=== PATIENT | male | born 1940 | race Caucasian/White ===

== ENCOUNTER → 2016-06-03 | Outpatient (CLI) | payer BC ==
[~2016-06-03] MED LIST: ACET-1256 PO; ADVIN25/60 INH; AMLO-114 PO; CLOP1TAB15 PO; NTRGSL/4 UT; OXGN; PRT/40 PO; ROFL1TAB5 PO; SIMV40TA2 PO
[2016-06-03 15:56] LABS: BLOOD UREA NITROGEN 21 mg/dl (7-18); BUN/CREATININE RATIO 13.1 (10-20); CALCIUM 9.4 mg/dl (8.5-10.1); CARBON DIOXIDE 31 mmol/L (21-32); CHLORIDE 104 mmol/L (98-107); GLUCOSE 88 mg/dl (70-99); MAGNESIUM 2.4 mg/dl (1.8-2.4); POTASSIUM 4.7 mmol/L (3.5-5.1); SODIUM 141 mmol/L (136-145)
[2016-06-03 16:35] LABS: URINE APPEARANCE CLEAR (CLEAR); URINE BILIRUBIN NEG (NEG); URINE COLOR YELLOW; URINE EPITHELIAL CELL AUTO 0-5 /lpf (0-5); URINE NITRITE NEG (NEG); URINE PH 7.5 (4.5-7.5); URINE SPECIFIC GRAVITY 1.003 (1.000-1.030); UROBILINOGEN NEG (NEG); ZZUR CULT IF INDIC CLEAN CATCH NO
[2016-06-03 16:45] LABS: MANUAL MICROSCOPIC REQUIRED? NO; REVIEW REQ? NO; URINE PROTIEN/CREAT RATIO 1.9 (0-0.2)
[2016-06-03 16:46] LABS: SULFASALICYLIC ACID POS (NEG)
== END | disposition home or self-care (01) ==
LOC: C.LABSPEC 14:56
PROVIDERS: ATTEND Internal Medicine Nephrology
DX: N18.3 Chronic kidney disease, stage 3 (moderate) (principal); E55.9 Vitamin D deficiency, unspecified

== ENCOUNTER → 2016-09-14 | Outpatient (CLI) | payer BC ==
[~2016-09-14] MED LIST changes: +PANT40TA2 PO; -PRT/40 PO
[2016-09-14 14:17] LABS: HEMATOCRIT 40.2 % (42-52); MEAN CELL VOLUME 93.3 fL (80-100); MEAN CORPUSCULAR HEMOGLOBIN 30.2 pg (25-34); MEAN CORPUSCULAR HGB CONC 32.3 g/dl (32-36); MEAN PLATELET VOLUME 10.1 fL (7.4-10.4); PLATELET COUNT 201 K/uL (130-400); RED BLOOD COUNT 4.31 M/uL (4.7-6.1); WHITE BLOOD COUNT 6.12 K/uL (4.8-10.8)
[2016-09-14 14:22] LABS: BASO % 0.7 %; BASO ABS # 0.04 K/uL (0-0.2); COMPLETE YES; EOS % 2.1 %; IG% 0.7 %; LYMPH % 13.9 %; LYMPH ABS # 0.85 K/uL (1.2-3.4); MONO % 12.4 %; NEUT % 70.2 %
[2016-09-14 14:52] LABS: CALCIUM 9.1 mg/dl (8.5-10.1)
[2016-09-14 14:53] LABS: ALKALINE PHOSPHATASE 70 U/L (45-117); ALT/SGPT 29 U/L (12-78); AST/SGOT 21 U/L (15-37); BLOOD UREA NITROGEN 23 mg/dl (7-18); BUN/CREATININE RATIO 14.5 (10-20); CARBON DIOXIDE 27 mmol/L (21-32); CHLORIDE 109 mmol/L (98-107); CHOLESTEROL 154 mg/dl (0-200); CHOLESTEROL/HDL RATIO 3.3; GLUCOSE 91 mg/dl (70-99); HDL CHOLESTEROL 47 mg/dl; POTASSIUM 4.2 mmol/L (3.5-5.1); SODIUM 144 mmol/L (136-145); TRIGLYCERIDES 130 mg/dl (0-150); VERY LOW DENSITY LIPOPROT CALC 26 mg/dl
== END | disposition home or self-care (01) ==
LOC: C.LABSPEC 12:51
PROVIDERS: ATTEND Internal Medicine
DX: I25.10 Atherosclerotic heart disease of native coronary artery without angina pectoris (principal); I12.9 Hypertensive chronic kidney disease with stage 1 through stage 4 chronic kidney disease, or unspecified chronic kidney disease; N18.9 Chronic kidney disease, unspecified

== ENCOUNTER → 2016-12-07 | Outpatient (CLI) | payer BC ==
[~2016-12-07] MED LIST changes: -PANT40TA2 PO; +PRT/40 PO
[2016-12-07 16:17] LABS: BASO % 0.4 %; BASO ABS # 0.03 K/uL (0-0.2); COMPLETE YES; HEMATOCRIT 38.7 % (42-52); IG% 0.4 %; LYMPH % 14.2 %; MEAN CELL VOLUME 91.3 fL (80-100); MEAN CORPUSCULAR HEMOGLOBIN 29.5 pg (25-34); MEAN CORPUSCULAR HGB CONC 32.3 g/dl (32-36); MEAN PLATELET VOLUME 9.8 fL (7.4-10.4); MONO % 12.5 %; NEUT % 68.5 %; PLATELET COUNT 212 K/uL (130-400); RED BLOOD COUNT 4.24 M/uL (4.7-6.1); WHITE BLOOD COUNT 7.05 K/uL (4.8-10.8)
[2016-12-07 16:21] LABS: URINE APPEARANCE CLEAR (CLEAR); URINE BILIRUBIN NEG (NEG); URINE COLOR YELLOW; URINE NITRITE NEG (NEG); URINE SPECIFIC GRAVITY 1.019 (1.000-1.030); UROBILINOGEN NEG (NEG); ZZUR CULT IF INDIC CLEAN CATCH NO
[2016-12-07 16:22] LABS: MANUAL MICROSCOPIC REQUIRED? NO; REVIEW REQ? NO
[2016-12-07 16:29] LABS: BLOOD UREA NITROGEN 22 mg/dl (7-18); BUN/CREATININE RATIO 14.6 (10-20); CALCIUM 8.9 mg/dl (8.5-10.1); CARBON DIOXIDE 27 mmol/L (21-32); CHLORIDE 108 mmol/L (98-107); GLUCOSE 102 mg/dl (70-99); MAGNESIUM 2.2 mg/dl (1.8-2.4); PHOSPHORUS 2.7 mg/dl (2.5-4.9); SODIUM 139 mmol/L (136-145)
[2016-12-07 16:46] LABS: URINE PROTIEN/CREAT RATIO 1.8 (0-0.2); URINE TOTAL PROTEIN 174.8 mg/dl (0-11.9)
== END | disposition home or self-care (01) ==
LOC: C.LABSPEC 14:50
PROVIDERS: ATTEND Internal Medicine Nephrology
DX: N18.3 Chronic kidney disease, stage 3 (moderate) (principal)

== ENCOUNTER → 2017-01-19 | Outpatient (CLI) | payer BC ==
[2017-01-19 15:02] LABS: BASO % 0.4 %; BASO ABS # 0.03 K/uL (0-0.2); COMPLETE YES; EOS % 2.8 %; HEMATOCRIT 39.9 % (42-52); IG% 0.5 %; LYMPH % 17.5 %; LYMPH ABS # 1.36 K/uL (1.2-3.4); MEAN CELL VOLUME 89.9 fL (80-100); MEAN CORPUSCULAR HEMOGLOBIN 29.5 pg (25-34); MEAN CORPUSCULAR HGB CONC 32.8 g/dl (32-36); MEAN PLATELET VOLUME 9.3 fL (7.4-10.4); MONO % 14.8 %; PLATELET COUNT 210 K/uL (130-400); RED BLOOD COUNT 4.44 M/uL (4.7-6.1); WHITE BLOOD COUNT 7.77 K/uL (4.8-10.8)
[2017-01-19 15:21] LABS: ALT/SGPT 24 U/L (12-78); AST/SGOT 21 U/L (15-37); BLOOD UREA NITROGEN 19 mg/dl (7-18); BUN/CREATININE RATIO 11.1 (10-20); CARBON DIOXIDE 25 mmol/L (21-32); CHLORIDE 105 mmol/L (98-107); CREATININE 1.75 mg/dl (0.60-1.40); GLUCOSE 97 mg/dl (70-99); POTASSIUM 4.4 mmol/L (3.5-5.1); SODIUM 139 mmol/L (136-145)
[2017-01-19 15:25] LABS: ESTIMATED AVERAGE GLUCOSE 108 mg/dl; HA1C FLAG Normal (Normal)
[2017-01-19 15:26] LABS: ALB/GLOB RATIO 0.9 (0.9-2); ALKALINE PHOSPHATASE 87 U/L (45-117); CHOLESTEROL 163 mg/dl (0-200); CHOLESTEROL/HDL RATIO 3.3; HDL CHOLESTEROL 50 mg/dl; TRIGLYCERIDES 194 mg/dl (0-150); VERY LOW DENSITY LIPOPROT CALC 39 mg/dl
== END | disposition home or self-care (01) ==
LOC: C.LABSPEC 14:43
PROVIDERS: ATTEND Internal Medicine
DX: R73.9 Hyperglycemia, unspecified (principal); I25.10 Atherosclerotic heart disease of native coronary artery without angina pectoris; J44.9 Chronic obstructive pulmonary disease, unspecified; C61 Malignant neoplasm of prostate

== ENCOUNTER → 2017-08-09 | Outpatient (CLI) | payer BC ==
[~2017-08-09] MED LIST changes: +PANT40TA2 PO; -PRT/40 PO
[2017-08-09 18:07] LABS: BASO % 0.4 %; BASO ABS # 0.03 K/uL (0-0.2); EOS % 2.4 %; EOS ABS # 0.18 K/uL (0-0.5); HEMATOCRIT 40.2 % (42-52); HEMOGLOBIN 13.3 g/dL (14.0-18.0); IG# 0.02 K/uL (0.00-0.02); LYMPH % 15.8 %; LYMPH ABS # 1.16 K/uL (1.2-3.4); MEAN CELL VOLUME 93.5 fL (80-100); MEAN CORPUSCULAR HEMOGLOBIN 30.9 pg (25-34); MEAN CORPUSCULAR HGB CONC 33.1 g/dl (32-36); MEAN PLATELET VOLUME 10.1 fL (7.4-10.4); MONO % 15.2 %; MONO ABS # 1.12 K/uL (0.11-0.59); NEUT % 65.9 %; NEUT ABS # 4.84 K/uL (1.4-6.5); PLATELET COUNT 205 K/uL (130-400); RED CELL DISTRIBUTION WIDTH SD 47.6 fL (36.4-46.3); WHITE BLOOD COUNT 7.35 K/uL (4.8-10.8)
[2017-08-09 19:06] LABS: CREATININE RANDOM URINE 27.5 mg/dl
[2017-08-09 19:21] LABS: ALBUMIN 3.8 gm/dl (3.4-5.0); BLOOD UREA NITROGEN 25 mg/dl (7-18); CALCIUM 9.1 mg/dl (8.5-10.1); CARBON DIOXIDE 27 mmol/L (21-32); CREATININE 1.67 mg/dl (0.60-1.40); GLUCOSE 87 mg/dl (70-99); PHOSPHORUS 2.7 mg/dl (2.5-4.9); POTASSIUM 4.3 mmol/L (3.5-5.1); SODIUM 139 mmol/L (136-145)
== END | disposition home or self-care (01) ==
LOC: C.LABSPEC 16:59
PROVIDERS: ATTEND Internal Medicine
DX: N18.3 Chronic kidney disease, stage 3 (moderate) (principal)

== ENCOUNTER 2018-12-31 06:44 | Inpatient (IN) ==
[2018-12-31] MEDS ORDERED: ONDANSETRON INJ 2 MG/ML 2 ML VIAL IV STA (06:53)
[2018-12-31] MEDS ORDERED: HYDROmorphone INJ 0.5 MG/0.5 ML SYR IV STA (06:53)
[2018-12-31] MEDS ORDERED: SODIUM CHLORIDE 0.9% 500 ML IV SCH (07:00)
[2018-12-31 07:15] LABS: Basophils # (auto) 0.01 K/uL (0-0.2); Basophils % (auto) 0.1 %; Hemoglobin 12.8 g/dL (14.0-18.0); Immature Granulocytes # (auto) 0.03 K/uL (0.00-0.02); Immature Granulocytes % (auto) 0.4 %; Lymphocytes # (auto) 0.56 K/uL (1.2-3.4); Mean Corpuscular Hemoglobin 29.8 pg (25-34); Mean Corpuscular Hgb Conc 33.7 g/dL (32-36); Mean Corpuscular Volume 88.6 fL (80-100); Mean Platelet Volume 9.7 fL (7.4-10.4); Neutrophils # (auto) 6.61 K/uL (1.4-6.5); Neutrophils % (auto) 82.5 %; Platelet Count 192 K/uL (130-400); RDW Coefficient of Variation 14.5 % (11.5-14.5); RDW Standard Deviation 47.2 fL (36.4-46.3); Red Blood Count 4.29 M/uL (4.7-6.1); White Blood Count 8.01 K/uL (4.8-10.8)
--- NOTE | 2018-12-31 07:15 | XRay Report ---
XR chest 1V portable CLINICAL HISTORY: Atypical chest pain COMPARISON STUDY: 12-12 FINDINGS: The heart is normal in size. There is severe pulmonary emphysema. There is no focal pulmona ry consolidation. There is minor atelectasis/scarring at the right lung base. There are no significan t pleural effusions.[ IMPRESSION: Severe pulmonary emphysema. No acute findings. Electronically signed by: Bruce Strickland M.D. 12/31/2018 7:13 AM
[2018-12-31 07:38] LABS: Alanine Aminotransferase 21 U/L (12-78); Albumin Level 3.7 gm/dl (3.4-5.0); Aspartate Aminotransferase 22 U/L (15-37); BUN Creatinine Ratio 14.5 (10-20); Blood Urea Nitrogen 27 mg/dl (7-18); Carbon Dioxide 25 mmol/L (21-32); Chloride 103 mmol/L (98-107); Creatinine Clr Calc Pharmacy 33.5 ml/min; Est GFR (African American) 39.5; Est GFR (Non-African American) 34.1; Glucose 114 mg/dl (70-99); Lipase 84 U/L (73-393); Potassium 4.2 mmol/L (3.5-5.1); Sodium 135 mmol/L (136-145)
[2018-12-31 07:44] LABS: Alkaline Phosphatase 88 U/L (45-117); Bilirubin,Total 0.6 mg/dl (0.2-1); Creatine Kinase 88 U/L (39-308); Creatine Kinase MB 2.1 ng/ml (0.5-3.6); Globulin 3.8 gm/dl (2.5-4.0); Total Protein 7.5 gm/dl (6.4-8.2); Troponin I < 0.015 ng/ml (0-0.045)
[2018-12-31] MEDS: IOVERSOL 100ml IV PRN ×3 (08:19→11:44)
--- NOTE | 2018-12-31 08:36 | CT Scan Report ---
CT abd pelvis IV con only CLINICAL HISTORY: Abdominal pain COMPARISON STUDY: None TECHNIQUE: The patient was scanned in a dynamic helical fashion during intravenous administration of 94 cc of Optiray 320. A dose lowering technique was utilized adhering to the principles of ALARA. CT DOSE: 707.96 mGy.cm FINDINGS: Lower chest: There is extensive pulmonary emphysema. There are no pleural effusions. Liver: There is scattered hypodense hepatic lesions which approach water attenuation likely represent cysts. The portal vein is patent. The hepatic veins appear patent. There is no ductal dilatation. Gallbladder: There are suspected adenomyomatosis involving the gallbladder fundus. Spleen: Normal in size and attenuation. Pancreas: Unremarkable. Adrenal glands: Unremarkable. Kidneys: There is bilateral nephrolithiasis. There are bilateral vascular calcifications. There are m ultiple bilateral renal cysts. There is no hydronephrosis. No ureteral calculi are visualized. Bowel: There are no transition zones indicate bowel obstruction. The appendix appears normal. There i s no evidence of acute diverticulitis. There are multiple scattered colonic diverticula. Peritoneum: There is no intraperitoneal free air or abdominal ascites. There is mild infiltration of the retroperitoneal soft tissues with trace fluid. Vasculature: There is a 61 mm infrarenal abdominal aortic aneurysm. There is mild infiltration of the surrounding fat. There is an aortobiiliac bypass graft. Adenopathy: None. Pelvic viscera: There is mild prostamegaly. Prostate seeds are visualized. Skeletal structures: No destructive osseous lesions are seen. IMPRESSION: 1. No evidence of bowel obstruction. No evidence of free air 2. Normal appendix. No evidence of acute diverticulitis. 3. 61 mm infrarenal abdominal aortic aneurysm. There is mild infiltration of the perianeurysmal retro peritoneal fat. This finding increases the risk for impending rupture. 4. Bilateral nephrolithiasis. No ureteral calculi identified 5. Aortobiiliac stent grafts. 6. 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 12/31/2018 8:35 AM
--- NOTE | 2018-12-31 09:06 | History & Physical Report ---
Date of Service December 31, 2018 Assessment & Plan (1) Ruptured abdominal aortic aneurysm (AAA): Repair of AAA recommended. I have discussed the risks options and benefits of the procedure with the patient. The patient understands the risks options and benefits and agrees to the procedure. History of Present Illness Chief Complaint: Symptomatic AAA Primary Care Provider: Jasen Banda MD 78 yo male who presented today with abdominal and lower quadrant pain. Found to have a large AAA with a large amount of standing. He is on home O2 and has renal insufficiency. Allergies Allergy/AdvReac Type Severity Reaction Status Date / Time No Known Allergies Allergy Verified 12/31/18 07:15 Home Medications Home Medications Medication Instructions Recorded Confirmed Type albuterol sulfate HFA 90 1 puffs INHALATION BID PRN gm 12/26/18 12/31/18 History mcg/actuation aerosol inhaler amlodipine 10 mg tablet 10 mg PO DAILY #60 tab 12/26/18 12/31/18 History cholecalciferol (vitamin D3) 3,000 3,000 units PO DAILY #30 tab 12/26/18 12/31/18 Rx unit tablet clopidogrel 75 mg tablet 75 mg PO DAILY #30 tab 12/26/18 12/31/18 History metoprolol tartrate 50 mg tablet 75 mg PO BID tab 12/26/18 12/31/18 History nitroglycerin 0.4 mg sublingual 0.4 mg SL Q5M tab 12/26/18 12/31/18 History tablet pantoprazole 40 mg tablet,delayed 40 mg PO DAILY #90 tab 12/26/18 12/31/18 History release simvastatin 40 mg tablet 40 mg PO DAILY #90 tab 12/26/18 12/31/18 History albuterol sulfate 2.5 mg INHALATION QID PRN 12/31/18 12/31/18 History Past Med/Surg History Social History Preferred Language: [place] marital status: current occupational status: retired Feels Safe at Home: Yes Smoking Status: Former smoker Review of Systems All systems reviewed & are unremarkable except as noted in HPI & below + dyspnea Physical Exam Constitutional: well developed and well nourished; no acute distress Respiratory: normal respiratory effort; no respiratory distress Auscultation: lungs clear to auscultation bilaterally Cardiovascular: Rate/Rhythm: regular rate and regular rhythm Extremities: normal capillary refill Gastrointestinal (Abdomen): Inspection/Auscultation: abdomen normal to inspection Percussion/Palpation: + pulsatile mass; abdomen nontender Neurologic: CN's II-XI intact bilaterally; no focal motor deficits Psychiatric: Orientation: alert and oriented x 3 Results & Data Vital Signs (Past 12 Hours) Vital Signs Temp Pulse Pulse Resp BP BP Pulse Ox 12/31/18 07:20 69 20 169/82 H 100 12/31/18 06:57 100 12/31/18 06:47 36.8 C 81 18 180/86 H 100
--- NOTE | 2018-12-31 09:06 | Anesthesiology Consultation ---
Date of Service December 31, 2018 Assessment & Plan (1) Encounter for pre-operative examination: Chart Review Chart Review: Acceptable Risk for Surgery Consults Requested none ASA [id number] Proposed Anesthesia Anesthesia Type: General Anesthesia Line Insertion: Arterial line Risk / Benefits Reviewed With: PT / POA / Parent / Guardian, Accepts Plan and Informed Consent Obtained History Height/Weight Height: 5 ft 10 in Weight: 71.9 kg Allergies Allergy/AdvReac Type Severity Reaction Status Date / Time No Known Allergies Allergy Verified 12/31/18 07:15 Medications Home Medications Medication Instructions Recorded Confirmed Last Taken albuterol sulfate HFA 90 1 puffs INHALATION BID PRN gm 12/26/18 12/31/18 12/30/18 mcg/actuation aerosol inhaler amlodipine 10 mg tablet 10 mg PO DAILY #60 tab 12/26/18 12/31/18 12/30/18 cholecalciferol (vitamin D3) 3,000 3,000 units PO DAILY #30 tab 12/26/1812/3112/30/18 unit tablet clopidogrel 75 mg tablet 75 mg PO DAILY #30 tab 12/26/18 12/31/18 12/30/18 metoprolol tartrate 50 mg tablet 75 mg PO BID tab 12/26/18 12/31/18 12/30/18 nitroglycerin 0.4 mg sublingual 0.4 mg SL Q5M tab 12/26/18 12/31/18 Unknown tablet pantoprazole 40 mg tablet,delayed 40 mg PO DAILY #90 tab 12/26/18 12/31/18 12/30/18 release simvastatin 40 mg tablet 40 mg PO DAILY #90 tab 12/26/18 12/31/18 12/30/18 albuterol sulfate 2.5 mg INHALATION QID PRN 12/31/18 12/31/18 12/30/18 Active Medications Generic Name Dose Route Start Last Admin Trade Name Freq PRN Reason Stop Dose Admin Ioversol 94 ml 12/31/18 08:19 12/31/18 08:19 Optiray 320 100ml IV 01/04/19 08:18 94 ml ONCE PRN Administration Interaction Checking NPO Date Last Intake of Fluids: 12/31/18 Time Last Intake of Fluids: 01:00 Date Last Intake of Solids: 12/31/18 Time Last Intake of Solids: 01:00 Past Medical History Medical History AAA (abdominal aortic aneurysm) COPD (chronic obstructive pulmonary disease) Myocardial infarct, old PVD (peripheral vascular disease) Exercise / Class Metabolic Activity III < 4 Walking/Shop/Light housework Past Surgical History Surgical History H/O angioplasty (Inactive) S/P coronary artery stent placement S/P insertion of iliac artery stent Past Anesthesia History No Hx of Anesthesia Complications and No Family Hx of Anesthesia Complications History of PONV No Hx of PONV and No Hx of Motion Sickness Social History Smoking Status: Former smoker Physical Exam Vital Signs Last Vital Signs Temp 98.2 F 12/31/18 06:47 Pulse 69 12/31/18 07:20 Resp 20 12/31/18 07:20 BP 169/82 H 12/31/18 07:20 Pulse Ox 100 12/31/18 07:20 ENMT Mouth: + dentures Thyromental Distance: > or= 3.5 Finger Breadths Mallampati Class: II Neck normal visual inspection Respiratory normal respiratory effort Auscultation: lungs clear to auscultation bilaterally Cardiovascular Rate/Rhythm: regular rate and regular rhythm Testing Laboratory Results 12/31/18 06:55 12/31/18 06:55
[2018-12-31] MEDS ORDERED: ONDANSETRON INJ 2 MG/ML 2 ML VIAL ONE (09:37)
[2018-12-31] MEDS ORDERED: LIDOCAINE HCL 2% 2 ML VIAL/AMP(20MG/ML) INFIL ONE (09:37)
[2018-12-31] MEDS ORDERED: PROPOFOL IV EMULSION 10 MG/ML 20 ML VIAL IV ONE (09:37)
[2018-12-31] MEDS ORDERED: fentaNYL citrate 100 MCG/2 ML VIAL ONE ×2 (09:38)
[2018-12-31] MEDS ORDERED: SODIUM CHLORIDE 0.9% 250 ML IV PRN (09:46)
[2018-12-31] MEDS ORDERED: ALBUMIN HUMAN 5% 12.5 GM/250 ML VIAL IV ONE (09:48)
--- NOTE | 2018-12-31 10:11 | Emergency Department Note ---
Entered by Glendy Sharif acting as a scribe for History of Present Illness General Chief complaint: Cardiac Assessment Stated complaint: CARDIAC ASSESSMENT Time Seen by Provider: 12/31/18 06:49 Source: patient Mode of arrival: EMS Limitations: no limitations History of Present Illness Provider complaint: Abdominal pain Onset (ago): day(s) (yesterday around 1500) Location: abdomen (lower) Severity: similar to prior episodes Pain Consistency: + other (worsening) Quality: + other (pain) Relieved By: + none The patient is a 78 year old male with a history of 2 coronary artery stents and 2 iliac stents who presents to the Emergency Room with complaints of worsening lower abdominal pain starting yesterday around 1500. The patient reports that his pain presented when he returned home from the grocery store. He states that he experienced similar abdominal pain about 6 months ago but that it resolved on its own so he never went to the doctor to determine its etiology. He denies a history of diverticulitis and adds that he normally wears O2. Home Medications Home Medications Medication Instructions Recorded Confirmed Type albuterol sulfate HFA 90 1 puffs INHALATION BID PRN gm 12/26/18 12/31/18 H istory mcg/actuation aerosol inhaler amlodipine 10 mg tablet 10 mg PO DAILY #60 tab 12/26/18 12/31/18 History cholecalciferol (vitamin D3) 3,000 3,000 units PO DAILY #30 tab 12/26/18 12/31/18 Rx unit tablet clopidogrel 75 mg tablet 75 mg PO DAILY #30 tab 12/26/18 12/31/18 History metoprolol tartrate 50 mg tablet 75 mg PO BID tab 12/26/18 12/31/18 History nitroglycerin 0.4 mg sublingual 0.4 mg SL Q5M tab 12/26/18 12/31/18 History tablet pantoprazole 40 mg tablet,delayed 40 mg PO DAILY #90 tab 12/26/18 12/31/18 History release simvastatin 40 mg tablet 40 mg PO DAILY #90 tab 12/26/18 12/31/18 History albuterol sulfate 2.5 mg INHALATION QID PRN 12/31/18 12/31/18 History Allergies Allergy/AdvReac Type Severity Reaction Status Date / Time No Known Allergies Allergy Verified 12/31/18 07:15 Past Med/Surg History Medical History AAA (abdominal aortic aneurysm) COPD (chronic obstructive pulmonary disease) Myocardial infarct, old PVD (peripheral vascular disease) Surgical History H/O angioplasty (Inactive) S/P coronary artery stent placement S/P insertion of iliac artery stent Social History Preferred Language: Bulgarian marital status: current occupational status: retired Feels Safe at Home: Yes Smoking Status: Former smoker Review of Systems See HPI for pertinent positives & negatives. and A total of 10 systems reviewed and were otherwise negative Physical Exam Vital Signs Vital Signs - 24 hr 12/31/18 06:47 12/31/18 06:50 12/31/18 06:52 Temperature 36.8 C Temperature Source Oral Sepsis Recent Fever Within 48 Hours No Sepsis New/Unexplained Change in Mental Status No Sepsis Action Taken by Nursing No Action Required Pulse Rate 81 85 84 Pulse Rate [Apical] Pulse Rate from SpO2 Sensor 85 84 Pulse Rhythm Regular Pulse Strength Normal Respiratory Rate 18 16 24 Respiratory Effort / Characteristics Non-Labored Respiratory Depth Normal Respiratory Pattern Regular Blood Pressure 180/86 H 180/86 H Blood Pressure [Right Arm] Blood Pressure Mean 117 117 Blood Pressure Mean [Right Arm] Blood Pressure Position Lying Pulse Oximetry 100 100 100 Oxygen Delivery Method Nasal Cannula Oxygen Flow Rate 5 12/31/18 06:57 12/31/18 07:00 12/31/18 07:12 Temperature Temperature Source Sepsis Recent Fever Within 48 Hours Sepsis New/Unexplained Change in Mental Status Sepsis Action Taken by Nursing Pulse Rate 70 69 Pulse Rate [Apical] Pulse Rate from SpO2 Sensor 71 69 Pulse Rhythm Pulse Strength Respiratory Rate 24 20 Respiratory Effort / Characteristics Respiratory Depth Respiratory Pattern Blood Pressure 163/80 H 169/82 H Blood Pressure [Right Arm] Blood Pressure Mean 107 111 Blood Pressure Mean [Right Arm] Blood Pressure Position Pulse Oximetry 100 100 100 Oxygen Delivery Method Nasal Cannula Oxygen Flow Rate 5 12/31/18 07:20 12/31/18 07:30 12/31/18 08:00 Temperature Temperature Source Sepsis Recent Fever Within 48 Hours Sepsis New/Unexplained Change in Mental Status Sepsis Action Taken by Nursing Pulse Rate 67 69 Pulse Rate [Apical] 69 Pulse Rate from SpO2 Sensor 68 66 Pulse Rhythm Pulse Strength Respiratory Rate 20 18 21 Respiratory Effort / Characteristics Respiratory Depth Respiratory Pattern Blood Pressure 159/76 H 154/72 H Blood Pressure [Right Arm] 169/82 H Blood Pressure Mean 103 99 Blood Pressure Mean [Right Arm] 111 Blood Pressure Position Pulse Oximetry 100 100 99 Oxygen Delivery Method Room Air Oxygen Flow Rate 12/31/18 08:27 12/31/18 08:30 12/31/18 09:00 Temperature Temperature Source Sepsis Recent Fever Within 48 Hours Sepsis New/Unexplained Change in Mental Status Sepsis Action Taken by Nursing Pulse Rate 71 69 86 Pulse Rate [Apical] Pulse Rate from SpO2 Sensor 72 68 85 Pulse Rhythm Pulse Strength Respiratory Rate 22 17 21 Respiratory Effort / Characteristics Respiratory Depth Respiratory Pattern Blood Pressure 177/88 H 176/88 H Blood Pressure [Right Arm] Blood Pressure Mean 117 117 Blood Pressure Mean [Right Arm] Blood Pressure Position Pulse Oximetry 98 99 99 Oxygen Delivery Method Oxygen Flow Rate 5 GENERAL: Awake, alert, well-appearing, in no acute distress HENT: Normocephalic, atraumatic. Oropharynx unremarkable. EYES: Normal conjunctiva. Sclera non-icteric. NECK: Supple. No nuchal rigidity. FROM. No JVD. RESPIRATORY: Clear to auscultation. CARDIAC: Regular rate, normal rhythm. Extremities warm and well perfused. Pulses equal. ABDOMEN: Soft, non-distended. No rebound or guarding. No masses. Tenderness in right lower quadrant and left lower quadrant. RECTAL: Deferred. MUSCULOSKELETAL: Chest examination reveals no tenderness. The back is symmetrical on inspection without obvious abnormality. There is no CVA tenderness to palpation. No joint edema. LOWER EXTREMITIES: Calves are equal size bilaterally and non-tender. No edema. No discoloration. NEURO: Normal sensorium. No sensory or motor deficits noted. SKIN: No rash or jaundice noted. Course 0650: The patient was evaluated in room B3B, and a complete history and physical examination were performed. 0840: I reviewed the patient's case with Dr. Mckeon - [facility] Dr. Mckeon will take the patient to the OR and evaluate the patient for further management. Consultations Consultation #1: I reviewed the patient's case with Dr. Mckeon - Vascular Surgery, [facility]. Dr. Mckeon will take the patient to the OR and evaluate the patient for further management. Time: 08:40 Administered Medications Ioversol (Optiray 320 100ml) 94 ml IV ONCE PRN PRN Reason: Interaction Checking Stop: 01/04/19 08:18 Last Admin: 12/31/18 08:19 Dose: 94 ml Documented by: [id number] Discontinued Medications Hydromorphone HCl (Dilaudid) 0.5 mg IV NOW STA Stop: 12/31/18 06:54 Last Admin: 12/31/18 07:13 Dose: 0.5 mg Documented by: [id number] Sodium Chloride (Nss) 500 mls @ 999 mls/hr IV .Q31M TUNDE Stop: 12/31/18 07:30 Last Infusion: 12/31/18 08:08 Dose: 0 mls/hr Documented by: [id number] Admin: 12/31/18 07:13 Dose: 999 mls/hr Documented by: [id number] Ondansetron HCl (Zofran) 4 mg IV NOW STA Stop: 12/31/18 06:54 Last Admin: 12/31/18 07:13 Dose: 4 mg Documented by: [id number] Medical Decision Making Differential Diagnosis Differential diagnosis includes: appendicitis, diverticulitis, PUD, biliary pathology, UTI, pancreatitis, obstruction, mesenteric ischemia, aortic pa thology, infections, inflammatory bowel disease, renal colic, as well as others were entertained. Medical Records Attestation: I reviewed the patient's medical records. Home Medications Current Medication List: was personally reviewed by me Laboratory Data Attestation: I reviewed the patient's lab results. Result diagrams: 12/31/18 06:55 12/31/18 06:55 Lab Results 12/31/18 12/31/18 12/31/18 Range/Units 06:55 06:55 08:54 WBC 8.01 (4.8-10.8) K/uL RBC 4.29 L (4.7-6.1) M/uL Hgb 12.8 L (14.0-18.0) g/dL Hct 38.0 L (42-52) % MCV 88.6 (80-100) fL MCH 29.8 (25-34) pg MCHC 33.7 (32-36) g/dL RDW Std Deviation 47.2 H (36.4-46.3) fL RDW Coeff of Tamara 14.5 (11.5-14.5) % Plt Count 192 (130-400) K/uL MPV 9.7 (7.4-10.4) fL Immature Gran % (Auto) 0.4 % Neut % (Auto) 82.5 % Lymph % (Auto) 7.0 % Heard % (Auto) 10.0 % Eos % (Auto) 0.0 % Baso % (Auto) 0.1 % Immature Gran # (Auto) 0.03 H (0.00-0.02) K/uL Neut # (Auto) 6.61 H (1.4-6.5) K/uL Lymph # (Auto) 0.56 L (1.2-3.4) K/uL Heard # (Auto) 0.80 H (0.11-0.59) K/uL Eos # (Auto) 0.00 (0-0.5) K/uL Baso # (Auto) 0.01 (0-0.2) K/uL Sodium 135 L (136-145) mmol/L Potassium 4.2 (3.5-5.1) mmol/L Chloride 103 (98-107) mmol/L Carbon Dioxide 25 (21-32) mmol/L Anion Gap 7.0 (3-11) BUN 27 H (7-18) mg/dl Creatinine 1.85 H (0.6-1.4) mg/dl Est Cr Clr Drug Dosing 33.5 ml/min Est GFR ( Amer) 39.5 Est GFR (Non-Af Amer) 34.1 BUN/Creatinine Ratio 14.5 (10-20) Glucose 114 H (70-99) mg/dl Calcium 9.0 (8.5-10.1) mg/dl Total Bilirubin 0.6 (0.2-1) mg/dl AST 22 (15-37) U/L ALT 21 (12-78) U/L Alkaline Phosphatase 88 (45-117) U/L Total Creatine Kinase 88 (39-308) U/L CK-MB (CK-2) 2.1 (0.5-3.6) ng/ml CK/CKMB % Calc 2.4 (0-3.0) Troponin I < 0.015 (0-0.045) ng/ml Total Protein 7.5 (6.4-8.2) gm/dl Albumin 3.7 (3.4-5.0) gm/dl Globulin 3.8 (2.5-4.0) gm/dl Albumin/Globulin Ratio 1.0 (0.9-2) Lipase 84 (73-393) U/L Blood Type O Negative Blood Type Recheck Antibody Screen NEGATIVE Crossmatch See Detail 12/31/18 Range/Units 09:50 WBC (4.8-10.8) K/uL RBC (4.7-6.1) M/uL Hgb (14.0-18.0) g/dL Hct (42-52) % MCV (80-100) fL MCH (25-34) pg MCHC (32-36) g/dL RDW Std Deviation (36.4-46.3) fL RDW Coeff of Tamara (11.5-14.5) % Plt Count (130-400) K/uL MPV (7.4-10.4) fL Immature Gran % (Auto) % Neut % (Auto) % Lymph % (Auto) % Heard % (Auto) % Eos % (Auto) % Baso % (Auto) % Immature Gran # (Auto) (0.00-0.02) K/uL Neut # (Auto) (1.4-6.5) K/uL Lymph # (Auto) (1.2-3.4) K/uL Heard # (Auto) (0.11-0.59) K/uL Eos # (Auto) (0-0.5) K/uL Baso # (Auto) (0-0.2) K/uL Sodium (136-145) mmol/L Potassium (3.5-5.1) mmol/L Chloride (98-107) mmol/L Carbon Dioxide (21-32) mmol/L Anion Gap (3-11) BUN (7-18) mg/dl Creatinine (0.6-1.4) mg/dl Est Cr Clr Drug Dosing ml/min Est GFR ( Amer) Est GFR (Non-Af Amer) BUN/Creatinine Ratio (10-20) Glucose (70-99) mg/dl Calcium (8.5-10.1) mg/dl Total Bilirubin (0.2-1) mg/dl AST (15-37) U/L ALT (12-78) U/L Alkaline Phosphatase (45-117) U/L Total Creatine Kinase (39-308) U/L CK-MB (CK-2) (0.5-3.6) ng/ml CK/CKMB % Calc (0-3.0) Troponin I (0-0.045) ng/ml Total Protein (6.4-8.2) gm/dl Albumin (3.4-5.0) gm/dl Globulin (2.5-4.0) gm/dl Albumin/Globulin Ratio (0.9-2) Lipase (73-393) U/L Blood Type Blood Type Recheck O Negative Antibody Screen Crossmatch Imaging Data Radiologist's Impression: Radiology results as stated below per my review and the radiologist's interpretation: XR chest 1V portable CLINICAL HISTORY: Atypical chest pain COMPARISON STUDY: 12-12 FINDINGS: The heart is normal in size. There is severe pulmonary emphysema. There is no focal pulmonary consolidation. There is minor atelectasis/scarring at the right lung base. There are no significant pleural effusions.[ IMPRESSION: Severe pulmonary emphysema. No acute findings. Electronically signed by: Bruce Strickland M.D. 12/31/2018 7:[address] abd pelvis IV con only CLINICAL HISTORY: Abdominal pain COMPARISON STUDY: None TECHNIQUE: The patient was scanned in a dynamic helical fashion during intravenous administration of 94 cc of Optiray 320. A dose lowering technique was utilized adhering to the principles of ALARA. CT DOSE: 707.96 mGy.cm FINDINGS: Lower chest: There is extensive pulmonary emphysema. There are no pleural effusions. Liver: There is scattered hypodense hepatic lesions which approach water attenuation likely represent cysts. The portal vein is patent. The hepatic veins appear patent. There is no ductal dilatation. Gallbladder: There are suspected adenomyomatosis involving the gallbladder fundus. Spleen: Normal in size and attenuation. Pancreas: Unremarkable. Adrenal glands: Unremarkable. Kidneys: There is bilateral nephrolithiasis. There are bilateral vascular calcifications. There are multiple bilateral renal cysts. There is no hydronephrosis. No ureteral calculi are visualized. Bowel: There are no transition zones indicate bowel obstruction. The appendix appears normal. There is no evidence of acute diverticulitis. There are multiple scattered colonic diverticula. Peritoneum: There is no intraperitoneal free air or abdominal ascites. There is mild infiltration of the retroperitoneal soft tissues with trace fluid. Vasculature: There is a 61 mm infrarenal abdominal aortic aneurysm. There is mild infiltration of the surrounding fat. There is an aortobiiliac bypass graft. Adenopathy: None. Pelvic viscera: There is mild prostamegaly. Prostate seeds are visualized. Skeletal structures: No destructive osseous lesions are seen. IMPRESSION: 1. No evidence of bowel obstruction. No evidence of free air 2. Normal appendix. No evidence of acute diverticulitis. 3. 61 mm infrarenal abdominal aortic aneurysm. There is mild infiltration of the perianeurysmal retroperitoneal fat. This finding increases the risk for impending rupture. 4. Bilateral nephrolithiasis. No ureteral calculi identified 5. Aortobiiliac stent grafts. 6. 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 12/31/2018 8:35 AM ECG Data Attestation: I personally reviewed and interpreted this ECG as follows: Indication: abdominal pain Rate (beats per minute): 89 Rhythm: normal sinus Findings: + ST depression (diffusely thoughout); no ST elevation Comparison ECG Date: from (11/30/2015) Change: the following changes noted (ST depressions are unchanged) Additional Comments: Posterior EKG findings: Normal sinus rhythm, 73 BPM, diffuse ST depressions, no ST elevation. Blood Pressure Blood Pressure Findings: Elevated blood pressure Blood Pressure Disposition: further management by hospitalist TAMY Molina This is a 78-year-old male who presents emergency department over concerns that he has a abdominal pain that has been ongoing for the past day. On physical examination the patient is tender right lower quadrant as well as left lower quadrant. The patient is hypertensive. Using shared medical decision-making with the patient and his he was sent for CAT scan of the abdomen pelvis. Patient's EKGs are unchanged from previous as he is diffuse ST depressions. He is on oxygen 2 L. He was given Dilaudid for his pain. Patient's CAT scan is concern for a ruptured AAA. I did discuss the case with the vascular surgeon on-call who was kind enough to see the patient and will take the patient immediately to the operating room. Patient and are in agreement with the treatment plan. Impression & Plan Ruptured abdominal aortic aneurysm (AAA), Abdominal pain Critical Care Time Critical Care Time: Yes Total Critical Care Time: 90 I have personally spent 90 minutes of critical care time in the direct management of this patient. This includes bedside care, interpretation of diagnostic studies, and testing, discussion with consultants, patient, and family members, and other required patient management activities. This 90 minutes is in excess of all separately billable procedures. Discharge Plan Visit Data *Final* Discharge Date/Time: 12/31/18 09:13 Chief Complaint: Cardiac Assessment Stated Complaint: CARDIAC ASSESSMENT ED Provider: Will Block Discharge Problem: Ruptured abdominal aortic aneurysm (AAA), Abdominal pain Patient Disposition: Still a Patient Discharge Instructions Interventions: ED Discharge Assessment Last Done: 12/31/18 09:13 Discharge Problem: Abdominal pain Qualifiers: Abdominal location: generalized Qualified Code(s): R10.84 - Generalized abdominal pain The scribe's documentation has been prepared under my direction and personally reviewed by me in its entirety. I confirm that the note above accurately reflects all work, treatment, procedures, and medical decision making performed by me.
[2018-12-31] MEDS ORDERED: GELATIN SPONGE SZ 100 ONE (11:30)
[2018-12-31] MEDS ORDERED: THROMBIN FOR SOLN 20000 UNIT KIT ONE (11:30)
[2018-12-31] MEDS ORDERED: GLYCOPYRROLATE 0.2 MG/ML VIAL ONE (11:47)
[2018-12-31] MEDS ORDERED: ROCURONIUM BROMIDE 10 MG/ML 5 ML VIAL ONE (11:47)
[2018-12-31] MEDS ORDERED: HEPARIN SOD (PORCINE) 1000 UNIT/ML 10 ML VIAL ONE (11:47)
[2018-12-31] MEDS ORDERED: NEOSTIGMINE METHYLSULFATE 5 MG/5 ML SYR ONE (11:47)
[2018-12-31] MEDS ORDERED: ACETAMINOPHEN 325 MG TAB PO PRN (11:58)
[2018-12-31] MEDS ORDERED: ONDANSETRON INJ 2 MG/ML 2 ML VIAL IV PRN (11:58)
--- NOTE | 2018-12-31 11:58 | Post Operative Brief Note ---
Immediate Post Op Note v1 Date of Surgery December 31, 2018 Pre & Post Diagnosis Operation Date: 12/31/18 09:45 Pre-Op Diagnosis: Symptomatic abdominal aortic aneurysm Post-Op Diagnosis: Symptomatic abdominal aortic aneurysm Procedure Operation Date: 12/31/18 09:45 Actual Procedures p Bilateral femoral artery exposure, bilateral transluminal angioplasty of external and common iliac artery, endovascular abdominal aortic aneurysm repair, bilateral distal extensions(Not Applicable) - Milton Mckeon MD Surgeon Milton Mckeon MD Laundry Room Attendant none Estimated Blood Loss 50 Findings Consistent with Post-Op Diagnosis Drains Damico Catheter Anesthesia Type General Complications none Disposition Accompanied Patient To Recovery: No Disposition: Surgical ICU
[2018-12-31] MEDS ORDERED: NITROGLYCERIN SL 0.4 MG/TAB TAB SL PRN (12:15)
--- NOTE | 2018-12-31 12:25 | Anesthesiology Progress Note ---
Date of Service December 31, 2018 Anesthesia Post Procedure Vital Signs Vital Signs: Temp Pulse Pulse Resp BP BP Pulse Ox 12/31/18 12:15 98.2 F 63 13 145/67 H 97 12/31/18 12:10 98.2 F 64 13 155/66 H 98 12/31/18 09:00 86 21 99 12/31/18 08:30 69 17 176/88 H 99 12/31/18 08:27 71 22 177/88 H 98 12/31/18 08:00 69 21 154/72 H 99 12/31/18 07:30 67 18 159/76 H 100 12/31/18 07:20 69 20 169/82 H 100 12/31/18 07:12 69 20 169/82 H 100 12/31/18 07:00 70 24 163/80 H 100 12/31/18 06:57 100 12/31/18 06:52 84 24 100 12/31/18 06:50 85 16 180/86 H 100 12/31/18 06:47 98.2 F 81 18 180/86 H 100 Pain Intensity Abdomen: Pain Intensity: 5 Transfer of Care Handoff Completed per policy Notes Mental Status: alert / awake / arousable and participated in evaluation Patient Amnestic to Procedure: Yes Nausea / Vomiting: adequately controlled Pain: adequately controlled Airway Patency, RR, SpO2: stable & adequate BP & HR: stable & adequate Hydration State: stable & adequate Anesthetic Complications: no major complications apparent and Pt Satisfied with anesthetic care Notes: Report given to underwriting analyst, care transferred to ICU team.
[2018-12-31] MEDS ORDERED: SUCCINYLCHOLINE CHLORIDE 20 MG/ML 10 ML VIAL ONE (12:27)
[2018-12-31] MEDS ORDERED: PHENYLEPHRINE HCL 10 MG/ML VIAL ONE (12:27)
[2018-12-31] MEDS ORDERED: ESMOLOL HCL INJ 10 MG/ML 10ML VIAL IV ONE (12:27)
[2018-12-31 12:47] LABS: Basophils # (auto) 0.01 K/uL (0-0.2); Basophils % (auto) 0.1 %; Eosinophils # (auto) 0.02 K/uL (0-0.5); Eosinophils % (auto) 0.3 %; Hematocrit (blood only) 30.5 % (42-52); Hemoglobin 10.2 g/dL (14.0-18.0); Immature Granulocytes # (auto) 0.02 K/uL (0.00-0.02); Immature Granulocytes % (auto) 0.3 %; Lymphocytes # (auto) 0.71 K/uL (1.2-3.4); Lymphocytes % (auto) 10.4 %; Mean Corpuscular Hemoglobin 29.9 pg (25-34); Mean Corpuscular Volume 89.4 fL (80-100); Mean Platelet Volume 9.5 fL (7.4-10.4); Monocytes # (auto) 0.81 K/uL (0.11-0.59); Monocytes % (auto) 11.9 %; Neutrophils # (auto) 5.23 K/uL (1.4-6.5); Platelet Count 144 K/uL (130-400); RDW Coefficient of Variation 14.6 % (11.5-14.5); Red Blood Count 3.41 M/uL (4.7-6.1)
[2018-12-31 12:49] LABS: Mean Corpuscular Hgb Conc 33.4 g/dL (32-36)
[2018-12-31 13:07] LABS: BUN Creatinine Ratio 13.2 (10-20); Calcium 7.6 mg/dl (8.5-10.1); Creatinine Clr Calc Pharmacy 37.5 ml/min; Est GFR (African American) 45.4; Est GFR (Non-African American) 39.2; Potassium 4.3 mmol/L (3.5-5.1)
--- NOTE | 2018-12-31 13:33 | Progress Note ---
Date of Service December 31, 2018 I was contacted by technologist Jalen Subramanian for permission to switch this O negative patient to O positive to conserve O negative units. I approved the switch to O positive. Alexandru Abreu MD
--- NOTE | 2018-12-31 13:36 | Progress Note ---
Date of Service December 31, 2018 Pathology Note I was contacted by technologist Jalen Subramanian to switch this O negative patient to O positive in order to conserve O negative units. I approved the switch to O positive. Alexandru Abreu MD
--- NOTE | 2018-12-31 13:49 | Critical Care Consultation ---
Date of Consultation December 31, 2018 Assessment & Plan (1) Ruptured abdominal aortic aneurysm (AAA): Patient had endoscopic repair of the abdominal aortic aneurysm by Dr. Mckeon. Blood pressure monitoring, watch for any decrease in sensation or weakness of bilateral lower extremities. Pain management, incentive spirometry Monitor H&H. 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 On Advair at home along with nebulizer Needs to have Spiriva inhaler added to the regimen prior to discharge Continue with O2 supplementation to keep O2 saturation between 88 to 92% BiPAP nightly and as needed shortness of breath --Normocytic anemia Hemoglobin 10.2 post OR Monitor H&H Transfuse as needed to keep hemoglobin greater than 7 --CKD Monitor BUN/creatinine Strict in and out Avoid nephrotoxic medication --Secondary hypercoagulable state Start anticoagulation once cleared by surgery Cardiac low-salt diet (2) COPD with emphysema: (3) HTN (hypertension): (4) Peripheral vascular disease: (5) Chronic respiratory failure with hypoxia, on home O2 therapy: History of Present Illness Reason for Consultation: Status post abdominal aortic aneurysm repair Attending Physician: Milton Mckeon MD History of Present Illness 78-year-old male with past medical history of COPD/emphysema, hypertension, peripheral vascular disease and abdominal aortic aneurysm comes to the hospital for endovascular stent placement. Patient had endovascular aortic aneurysm repair by Dr. Mckeon. Patient seen in the ICU after postanesthesia care. Breathing comfortably. Denies any chest pain, no shortness of breath, no headache, no nausea, no vomiting. No abdominal pain. Able to move bilateral lower extremities. Bilateral groin area bandage on. Social history: Greater than [id number] smoking history, social alcohol, denies any illicit drug use. Retired. Allergies: NKDA Allergies Allergy/AdvReac Type Severity Reaction Status Date / Time No Known Allergies Allergy Verified 12/31/18 07:15 Home Medications Home Medications Medication Instructions Recorded Confirmed Type albuterol sulfate HFA 90 1 puffs INHALATION BID PRN gm 12/26/18 12/31/18 History mcg/actuation aerosol inhaler amlodipine 10 mg tablet 10 mg PO DAILY #60 tab 12/26/18 12/31/18 History cholecalciferol (vitamin D3) 3,000 3,000 units PO DAILY #30 tab 09/30/19 10/05/19 Rx unit tablet clopidogrel 75 mg tablet 75 mg PO DAILY #30 tab 12/26/18 12/31/18 History metoprolol tartrate 50 mg tablet 75 mg PO BID tab 12/26/18 12/31/18 History nitroglycerin 0.4 mg sublingual 0.4 mg SL Q5M tab 12/26/18 12/31/18 History tablet pantoprazole 40 mg tablet,delayed 40 mg PO DAILY #90 tab 12/26/18 12/31/18 History release simvastatin 40 mg tablet 40 mg PO DAILY #90 tab 12/26/18 12/31/18 History albuterol sulfate 2.5 mg INHALATION QID PRN 12/31/18 12/31/18 History Patient History Medical History AAA (abdominal aortic aneurysm) COPD (chronic obstructive pulmonary disease) Myocardial infarct, old PVD (peripheral vascular disease) Surgical History H/O angioplasty (Inactive) S/P coronary artery stent placement S/P insertion of iliac artery stent Social History Preferred Language: [place] Citizen marital status: current occupational status: retired Feels Safe at Home: Yes Smoking Status: Former smoker Review of Systems Review of Systems: All systems reviewed & are unremarkable except as noted in HPI & below Physical Exam Physical Exam: Constitutional: No acute distress HEENT: EOMI, PERRLA Respiratory system: Good air entry bilaterally, no wheeze, no rhonchi, no crackles CVS: S1-S2 positive, no murmurs or gallops, distant heart sounds Abdomen: Soft, nontender, nondistended, positive bowel sounds x4, obese Extremities: No edema, no cyanosis, + pulses bilaterally dorsalis pedis, +2 pulses bilaterally radialis Neuro: Awake alert oriented x3 Psych: Normal mood and affect G/U: Positive Damico Patient has peripheral line and arterial line. Lymphatic: no cervical or axillary lymphadenopathy Results & Data Vital Signs (Past 12 Hours) Vital Signs Temp Pulse Pulse Pulse Resp BP BP 12/31/18 12:35 36.8 C 62 16 161/54 H 12/31/18 12:30 36.8 C 62 16 169/75 H 12/31/18 12:25 36.8 C 67 20 163/56 H 12/31/18 12:20 36.8 C 70 18 156/56 H 12/31/18 12:15 36.8 C 63 64 13 145/67 H 150/44 H 12/31/18 12:10 36.8 C 64 66 13 155/66 H 12/31/18 09:00 86 21 12/31/18 08:30 69 17 176/88 H 12/31/18 08:27 71 22 177/88 H 12/31/18 08:00 69 21 154/72 H 12/31/18 07:30 67 18 159/76 H 12/31/18 07:20 69 20 12/31/18 07:12 69 20 169/82 H 12/31/18 07:00 70 24 163/80 H 12/31/18 06:57 12/31/18 06:52 84 24 12/31/18 06:50 85 16 180/86 H 12/31/18 06:47 36.8 C 81 18 180/86 H BP Pulse Ox 12/31/18 12:35 153/65 H 97 12/31/18 12:30 159/66 H 97 12/31/18 12:25 158/70 H 98 12/31/18 12:20 149/74 H 97 12/31/18 12:15 145/67 H 98 12/31/18 12:10 155/66 H 99 12/31/18 09:00 99 12/31/18 08:30 99 12/31/18 08:27 98 12/31/18 08:00 99 12/31/18 07:30 100 12/31/18 07:20 169/82 H 100 12/31/18 07:12 100 12/31/18 07:00 100 12/31/18 06:57 100 12/31/18 06:52 100 12/31/18 06:50 100 12/31/18 06:47 100 Laboratory Results 12/31/18 12:30 12/31/18 12:30 Diagnostic Findings Chest x-ray: Portable hyperinflated film. None pulmonary vascular markings likely emphysema appreciate upper lobes., Costophrenic artifact on the screen. EKG: Normal sinus rhythm, right axis deviation, T wave flattening in V5 and V6. PG Care Time/CCT Total # of Minutes Spent Total Time Spent with Patient: Total time spent is greater than 50% in coordination of care (as documented) at patient's floor/unit and/or counseling patient: Critical Care Time: Yes Total Critical Care Time: 40
[2018-12-31] MEDS ORDERED: ALBUT/IPRATROP 3MG/0.5MG NEB 3 ML VIAL NEB PRN (14:03)
[2018-12-31] MEDS: CEFAZOLIN 1000MG 1,000 MG/7.5 ML SYR IV SCH ×2 (14:24→20:22)
[2018-12-31] MEDS: D5W AND 1/2NSS 1,000 ML IV SCH ×3 (14:25→20:22)
[2018-12-31] MEDS: OXYCODONE/ACETAMINOPHEN 5mg/325mg TAB PO PRN (14:25)
[2018-12-31] MEDS: MoRPHine SULFATE 4 MG/ML 1 ML CARP\\VIAL IV PRN ×2 (15:19→16:52)
[2018-12-31] MEDS: ALBUT/IPRATROP 3MG/0.5MG NEB 3 ML VIAL NEB SCH ×2 (15:38→19:03)
[2018-12-31 16:37] LABS: Appearance Urine Clear (Clear); Bacteria Urine Automated Negative (Negative); Bilirubin Urine Negative (Negative); Blood Urine 3+ (Negative); Color Urine Red; Glucose Urine UA Negative (Negative); Ketones Urine Negative (Negative); Leukocyte Esterase Urine Trace (Negative); Nitrite Urine Negative (Negative); Protein Urine 3+ (Negative); RBC Urine Automated >30 /hpf (0-4); Specific Gravity Urine > 1.045 (1.000-1.030); Urobilinogen Urine Negative (Negative)
[2018-12-31 17:55] LABS: Hematocrit (blood only) 28.9 % (42-52); Hemoglobin 9.7 g/dL (14.0-18.0)
[2018-12-31] MEDS: METOPROLOL TARTRATE 50 MG TAB PO SCH (20:23)
[2019-01-01 05:13] LABS: Basophils # (auto) 0.01 K/uL (0-0.2); Basophils % (auto) 0.1 %; Eosinophils # (auto) 0.01 K/uL (0-0.5); Eosinophils % (auto) 0.1 %; Hemoglobin 9.8 g/dL (14.0-18.0); Immature Granulocytes # (auto) 0.03 K/uL (0.00-0.02); Immature Granulocytes % (auto) 0.3 %; Lymphocytes # (auto) 0.55 K/uL (1.2-3.4); Mean Corpuscular Hemoglobin 29.6 pg (25-34); Mean Corpuscular Hgb Conc 32.7 g/dL (32-36); Mean Corpuscular Volume 90.6 fL (80-100); Monocytes # (auto) 1.62 K/uL (0.11-0.59); Monocytes % (auto) 14.8 %; Neutrophils # (auto) 8.71 K/uL (1.4-6.5); Neutrophils % (auto) 79.7 %; Platelet Count 144 K/uL (130-400); RDW Coefficient of Variation 14.9 % (11.5-14.5); Red Blood Count 3.31 M/uL (4.7-6.1); White Blood Count 10.93 K/uL (4.8-10.8)
[2019-01-01 05:32] LABS: BUN Creatinine Ratio 12.7 (10-20); Calcium 7.8 mg/dl (8.5-10.1); Creatinine Clr Calc Pharmacy 32.1 ml/min; Est GFR (African American) 37.6; Est GFR (Non-African American) 32.4; Potassium 4.5 mmol/L (3.5-5.1)
[2019-01-01] MEDS: D5W AND 1/2NSS 1,000 ML IV SCH (06:06)
[2019-01-01] MEDS: ALBUT/IPRATROP 3MG/0.5MG NEB 3 ML VIAL NEB SCH ×4 (07:05→19:23)
[2019-01-01] MEDS: OXYCODONE/ACETAMINOPHEN 5mg/325mg TAB PO PRN ×3 (08:51→21:28)
[2019-01-01] MEDS: CHOLECALCIFEROL 1,000 UNITS TAB PO SCH (08:52)
[2019-01-01] MEDS: CLOPIDOGREL BISULFATE 75 MG TAB PO SCH (08:52)
[2019-01-01] MEDS: PANTOprazole 40 MG TAB PO SCH (08:52)
[2019-01-01] MEDS: SIMVASTATIN 40 MG TAB PO SCH (08:52)
[2019-01-01] MEDS: AMLODIPINE BESYLATE 5 MG TAB PO SCH (08:52)
[2019-01-01] MEDS: METOPROLOL TARTRATE 50 MG TAB PO SCH ×2 (08:52→21:05)
--- NOTE | 2019-01-01 09:26 | Surgery Progress Note ---
Date of Service January 01, 2019 Assessment & Plan (1) Ruptured abdominal aortic aneurysm (AAA): Patient is postoperative day 1 of his EVAR repair of his abdominal uric aneurysm. He is doing extremely well. We will transfer him to the floor. We will increase his ambulation. Subjective The patient is awake and alert. He is complaining of minimal groin pain. Is being treated well with oral narcotics. He denies any abdominal or back pain. Physical Exam Physical Exam: Abdominal exam is benign. There is no pain or tenderness. Groin dressings are intact. The groins are soft. He is got good distal flow in both feet with good capillary refill. Urine output 230 cc last shift. His creatinine is 1.95 which is slightly elevated from his baseline 1.8. Constitutional: WD/WN, vitals as above Results & Data Vital Signs (Past 12 Hours) Vital Signs Temp Pulse Pulse Resp BP Pulse Ox 01/01/19 07:05 74 20 91 01/01/19 06:00 66 18 134/65 92 01/01/19 05:00 75 19 148/70 H 91 01/01/19 04:00 85 23 169/67 H 91 01/01/19 03:00 36.9 C 68 16 169/67 H 90 01/01/19 02:00 69 21 144/62 H 91 01/01/19 01:00 64 16 137/62 92 01/01/19 00:00 80 20 152/64 H 91 12/31/18 23:00 62 19 139/60 92 12/31/18 22:00 86 12 141/64 H 92
--- NOTE | 2019-01-01 10:42 | Critical Care Progress Note ---
Date of Service January 01, 2019 Assessment & Plan (1) Ruptured abdominal aortic aneurysm (AAA): Patient had endoscopic repair of the abdominal aortic aneurysm by Dr. Mckeon on 12/31/2018 Blood pressure monitoring, watch for any decrease in sensation or weakness of bilateral lower extremities. Pain management, incentive spirometry Monitor H&H. 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 On Advair at home along with nebulizer Needs to have Spiriva inhaler added to the regimen prior to discharge Continue with O2 supplementation to keep O2 saturation between 88 to 92% BiPAP nightly and as needed shortness of breath --Normocytic anemia Monitor H&H, stable Transfuse as needed to keep hemoglobin greater than 7 --CKD Monitor BUN/creatinine Strict in and out Avoid nephrotoxic medication --Hematuria Could be iatrogenic from Damico placement Is clearing up, monitor --Secondary hypercoagulable state Start anticoagulation once cleared by surgery Cardiac low-salt diet Patient hemodynamically stable to be downgraded to medical floor. DC A-line prior to downgrade. Case discussed with Dr. Mckeon (2) COPD with emphysema: (3) HTN (hypertension): (4) Peripheral vascular disease: (5) Chronic respiratory failure with hypoxia, on home O2 therapy: Subjective Patient seen and examined at bedside. No acute distress, no adverse events overnight. Patient's hematuria which was found yesterday is clearing up. Urine is getting more clear. Denies any chest pain, no headache, no vomiting. Was a bit nauseous in the morning. Denies any shortness of breath, no dizziness. Denies any abdominal pain. Review of Systems Review of Systems: All systems reviewed & are unremarkable except as noted in HPI & below Physical Exam Physical Exam: Constitutional: No acute distress HEENT: EOMI, PERRLA Respiratory system: Good air entry bilaterally, no wheeze, no rhonchi, minimal crackles bilateral lower lobes CVS: S1-S2 positive, no murmurs or gallops, distant heart sounds Abdomen: Soft, nontender, nondistended, positive bowel sounds x4, obese Extremities: No edema, no cyanosis, +1 pulses bilaterally dorsalis pedis, +2 pulses bilaterally radialis Neuro: Awake alert oriented x3 Psych: Normal mood and affect G/U: Positive Damico Patient has peripheral line and arterial line. Lymphatic: no cervical or axillary lymphadenopathy Results & Data Vital Signs (Past 12 Hours) Vital Signs Temp Pulse Pulse Resp BP Pulse Ox 01/01/19 10:01 77 26 H 91 01/01/19 10:00 70 22 154/63 H 92 01/01/19 09:01 78 18 92 01/01/19 09:00 72 22 159/65 H 92 01/01/19 08:01 70 20 94 01/01/19 08:00 36.9 C 71 19 143/69 H 93 01/01/19 07:05 74 20 91 01/01/19 07:01 63 14 93 01/01/19 07:00 63 24 151/65 H 92 01/01/19 06:00 66 18 134/65 92 01/01/19 05:00 75 19 148/70 H 91 01/01/19 04:00 85 23 169/67 H 91 01/01/19 03:00 36.9 C 68 16 169/67 H 90 01/01/19 02:00 69 21 144/62 H 91 01/01/19 01:00 64 16 137/62 92 01/01/19 00:00 80 20 152/64 H 91 12/31/18 23:00 62 19 139/60 92 Laboratory Results 01/01/19 04:30 01/01/19 04:30 PG Care Time/CCT Total # of Minutes Spent Total Time Spent with Patient: Total time spent is greater than 50% in coordination of care (as documented) at patient's floor/unit and/or counseling patient: Critical Care Time: Yes Total Critical Care Time: 30
[2019-01-01] MEDS ORDERED: SODIUM CHLORIDE 0.9% 1000ML 500 ML IV ONE (19:01)
[2019-01-02 05:38] LABS: Basophils # (auto) 0.01 K/uL (0-0.2); Basophils % (auto) 0.1 %; Eosinophils # (auto) 0.13 K/uL (0-0.5); Eosinophils % (auto) 1.3 %; Hemoglobin 9.2 g/dL (14.0-18.0); Immature Granulocytes # (auto) 0.04 K/uL (0.00-0.02); Immature Granulocytes % (auto) 0.4 %; Lymphocytes # (auto) 0.89 K/uL (1.2-3.4); Lymphocytes % (auto) 8.6 %; Mean Corpuscular Hemoglobin 29.6 pg (25-34); Mean Corpuscular Hgb Conc 32.9 g/dL (32-36); Mean Platelet Volume 9.9 fL (7.4-10.4); Monocytes # (auto) 1.57 K/uL (0.11-0.59); Monocytes % (auto) 15.1 %; Neutrophils # (auto) 7.76 K/uL (1.4-6.5); Neutrophils % (auto) 74.5 %; Platelet Count 141 K/uL (130-400); RDW Coefficient of Variation 14.9 % (11.5-14.5); RDW Standard Deviation 48.3 fL (36.4-46.3); Red Blood Count 3.11 M/uL (4.7-6.1)
[2019-01-02 06:04] LABS: Creatinine Clr Calc Pharmacy 27.7 ml/min; Est GFR (African American) 31.5; Est GFR (Non-African American) 27.2; Potassium 4.4 mmol/L (3.5-5.1)
[2019-01-02] MEDS: ALBUT/IPRATROP 3MG/0.5MG NEB 3 ML VIAL NEB SCH ×4 (07:09→19:22)
[2019-01-02] MEDS ORDERED: SODIUM CHLORIDE 0.9% 500 ML IV SCH (07:30)
[2019-01-02] MEDS: OXYCODONE/ACETAMINOPHEN 5mg/325mg TAB PO PRN (07:37)
--- NOTE | 2019-01-02 08:06 | Anesthesiology Progress Note ---
Date of Service January 02, 2019 Anesthesia Post Procedure Vital Signs Vital Signs: Temp Pulse Pulse Resp BP BP BP 01/02/19 07:27 36.8 C 86 22 162/77 H 01/02/19 07:09 88 22 01/01/19 23:05 36.8 C 70 18 143/66 H 01/01/19 21:04 76 136/66 01/01/19 19:24 78 20 01/01/19 15:43 73 18 01/01/19 14:57 36.9 C 62 18 129/65 01/01/19 11:00 36.9 C 72 24 161/73 H 01/01/19 10:44 78 18 01/01/19 10:01 77 26 H 01/01/19 10:00 70 22 154/63 H 01/01/19 09:01 78 18 01/01/19 09:00 72 22 159/65 H Pulse Ox 01/02/19 07:27 92 01/02/19 07:09 92 01/01/19 23:05 91 01/01/19 21:04 01/01/19 19:24 95 01/01/19 15:43 86 L 01/01/19 14:57 93 01/01/19 11:00 95 01/01/19 10:44 86 L 01/01/19 10:01 91 01/01/19 10:00 92 01/01/19 09:01 92 01/01/19 09:00 92 Notes Mental Status: alert / awake / arousable and participated in evaluation Patient Amnestic to Procedure: Yes Nausea / Vomiting: adequately controlled Pain: adequately controlled Airway Patency, RR, SpO2: stable & adequate BP & HR: stable & adequate Hydration State: stable & adequate Anesthetic Complications: no major complications apparent
[2019-01-02] MEDS ORDERED: bisacodyL 10 MG SUPP PR STA (08:14)
--- NOTE | 2019-01-02 08:27 | Surgery Progress Note ---
Date of Service January 02, 2019 Assessment & Plan (1) Ruptured abdominal aortic aneurysm (AAA): Pt now POD #2 from EVAR with BL groin cutdown. Noticeable increase in Cr and decrease in UO, also up 3 Kg. Electrolytes appear acceptable. Consult nephrology, sees Dr Abarca regularly. Also add stool softeners. Incisions looking well. Present on Admission?: Yes Subjective 78 yo m POD #2 after emergent EVAR with BL groin cutdown, seen in f/u today. Pt admits BL groin pain with movement, states is controlled with meds. Admits decreased appetite and UO. Does pass some flatus, but states has not had BM since last week and does admit some abd "fullness." Pt deneis any cehst pain, SOB, nausea, vomiting, leg or foot pain, other complaints. Review of Systems Review of Systems: All systems reviewed & are unremarkable except as noted in HPI & below Physical Exam Constitutional: WD/WN, vitals as above Respiratory: normal respiratory effort (on oxygen) Auscultation: + diminished lung sounds and + crackles (mild bibasilar) Cardiovascular: Rate/Rhythm: regular rate and regular rhythm Vessels: dorsalis pedis pulses present Extremities: normal capillary refill and + edema Gastrointestinal (Abdomen): Inspection/Auscultation: + abdomen distended; + abnormal bowel sounds (distant) Percussion/Palpation: abdomen nontender and no guarding Musculoskeletal: no cyanosis or clubbing, extremities motor strength 5/5 Skin: + incision (BL groins C/D/I with will +tender, mild ecchymosis) Neurologic: moves all extremities; no focal motor deficits Speech / Cognition: normal speech Psychiatric: A+Ox3, euthymic affect Results & Data Vital Signs (Past 12 Hours) Vital Signs Temp Pulse Resp BP Pulse Ox 01/02/19 07:27 36.8 C 86 22 162/77 H 92 01/02/19 07:09 88 22 92 01/01/19 23:05 36.8 C 70 18 143/66 H 91 01/01/19 21:04 76 136/66
[2019-01-02] MEDS: METOPROLOL TARTRATE 50 MG TAB PO SCH ×2 (08:59→19:28)
[2019-01-02] MEDS: CHOLECALCIFEROL 1,000 UNITS TAB PO SCH (08:59)
[2019-01-02] MEDS: CLOPIDOGREL BISULFATE 75 MG TAB PO SCH (08:59)
[2019-01-02] MEDS: AMLODIPINE BESYLATE 5 MG TAB PO SCH (08:59)
[2019-01-02] MEDS: DOCUSATE SODIUM 100 MG CAP PO SCH ×2 (08:59→19:27)
[2019-01-02] MEDS: PANTOprazole 40 MG TAB PO SCH (08:59)
[2019-01-02] MEDS: SIMVASTATIN 40 MG TAB PO SCH (08:59)
[2019-01-02] MEDS ORDERED: HEPARIN SOD (PORCINE) 1000 UNIT/ML 10 ML VIAL IV ONE (11:00)
[2019-01-02] MEDS ORDERED: SODIUM CHLORIDE 0.9% 1000ML 1,000 ML IV PRN (11:00)
--- NOTE | 2019-01-02 13:04 | Nephrology Consultation ---
Date of Consultation January 02, 2019 Assessment & Plan (1) Acute kidney injury: iMma Valladares is a 78-year-old gentlemen with a stage III CKD, peripheral vascular disease admitted to the hospital with impending AAA rupture and had repair on 09/30/2018. Currently recovering from surgery well. Blood pressure has been variable without any significant hypotensive episode. Baseline creatinine has been 1.6-1.8, renal function slightly worsened to creatinine 2.2 this morning. Has been having decreased urine output shortness of breath and abdominal distension Acute kidney injury most likely hemodynamically mediated with variability of blood pressure, surgery as well as IV contrast exposure. Unlikely any acute renovascular insult or thromboembolic phenomenon however, need to monitor renal function closely for rapid worsening specially since urine output has been low. Postrenal etiology with increased intra-abdominal pressure is a possibility of has well. --stat bladder scan and if there is any evidence of urinary retention, suggest putting Damico catheter back monitor urine output closely --avoid nephrotoxic medications, avoid hypotension --recommend getting a KUB for possible ileus/small bowel obstruction --Lasix 40 mg IV x1 if bladder scan shows no urinary retention --renal panel in am --if progressive worsening of renal function may need renal USG or CT for further evaluation will follow Thank you for allowing me to participate in your patient's care. It was a pleas ure to see Clifford. 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 Nephrology consult was requested for acute kidney injury. Electronic medical records including labs are reviewed in detail patient's visit. Family members were at bedside. Clifford presented to ER on 09/30/2018 with acute onset of lower abdominal pain, CT abdomen pelvis with IV contrast showed impending aortic rupture and he was taken to OR immediately and had repair of AAA. Blood pressure has been variable but no hypotensive episode. Currently recovering from the surgery. Has baseline stage III CKD with baseline creatinine around 1.6-1.8, secondary to renovascular disease. On admission creatinine was 1.9 on 09/30/2018 over last 2 days creatinine slightly worsened and creatinine was 2.2 this morning. . Blood pressure has been variable without any hypotensive episode but most of the time blood pressure running slightly elevated. No nephrotoxic medications exposure. He has been noticing decreased urine output and in fact he reports after Damico catheter was removed yesterday he hardly had any urine output. Had 1 small bowel movement this morning. Has been noticing abdominal distension and shortness of breath. Has been having belching and has been passing gas,. Allergies Allergy/AdvReac Type Severity Reaction Status Date / Time No Known Allergies Allergy Verified 12/31/18 07:15 Home Medications Home Medications Medication Instructions Recorded Confirmed Type albuterol sulfate HFA 90 1 puffs INHALATION BID PRN gm 12/26/18 12/31/18 History mcg/actuation aerosol inhaler amlodipine 10 mg tablet 10 mg PO DAILY #60 tab 12/26/18 12/31/18 History cholecalciferol (vitamin D3) 3,000 3,000 units PO DAILY #30 tab 12/26/18 12/31/18 Rx unit tablet clopidogrel 75 mg tablet 75 mg PO DAILY #30 tab 12/26/18 12/31/18 History metoprolol tartrate 50 mg tablet 75 mg PO BID tab 12/26/18 12/31/18 History nitroglycerin 0.4 mg sublingual 0.4 mg SL Q5M tab 12/26/18 12/31/18 History tablet pantoprazole 40 mg tablet,delayed 40 mg PO DAILY #90 tab 12/26/18 12/31/18 History release simvastatin 40 mg tablet 40 mg PO DAILY #90 tab 12/26/18 12/31/18 History albuterol sulfate 2.5 mg INHALATION QID PRN 12/31/18 12/31/18 History Patient History Medical History AAA (abdominal aortic aneurysm) COPD (chronic obstructive pulmonary disease) Myocardial infarct, old PVD (peripheral vascular disease) Surgical History H/O angioplasty (Inactive) S/P coronary artery stent placement S/P insertion of iliac artery stent Social History Preferred Language: [place] Communication Ability: Effective Waste Cotton Cleaner Required: No Beliefs That Will Affect Care: None marital status: Current Living Situation: Spouse current occupational status: retired Other Information That Helps Us Care for You: No Feels Safe at Home: Yes Safety Concerns: Feels Safe At This Time Smoking Status: Former smoker Do You Dip or Chew Tobacco: No ; Smoking End Date: 2013 ; Second Hand Exposure: No ; Tobacco Cessation Education Requested by Patient: No Hx Alcohol Use: No Hx Substance Use: No Review of Systems Review of Systems: All systems reviewed & are unremarkable except as noted in HPI & below Physical Exam Constitutional: WD/WN, vitals as above + ill appearing; no acute distress Respiratory: + respiratory distress and able to speak in complete sentences Auscultation: lungs clear to auscultation bilaterally Cardiovascular: RRR, no murmur, no edema Gastrointestinal (Abdomen): Inspection/Auscultation: + abdomen distended and normal bowel sounds Percussion/Palpation: + abdomen rigid; abdomen nontender and no guarding Results & Data Vital Signs (Past 12 Hours) Vital Signs Temp Pulse Pulse Resp BP Pulse Ox 01/02/19 12:55 91 01/02/19 12:50 93 01/02/19 11:26 119 H 28 H 78 L 01/02/19 07:27 36.8 C 86 22 162/77 H 92 01/02/19 07:09 88 22 92 PG Care Time/CCT Total # of Minutes Spent Total Time Spent with Patient: Total time spent is greater than 50% in coordination of care (as documented) at patient's floor/unit and/or counseling patient:
[2019-01-02] MEDS ORDERED: FUROSEMIDE 40 MG in SYRINGE 0 ML IV ONE (15:00)
--- NOTE | 2019-01-02 15:59 | XRay Report ---
XR chest 1V portable CLINICAL HISTORY: 78 years-old Male presenting with Hypoxia. TECHNIQUE: Portable upright AP view of the chest was obtained. COMPARISON: 12/31/2018. FINDINGS: Atherosclerosis of the aortic arch. Cardiac silhouette mildly enlarged. Radiolucency of the upper lob es with heterogeneous lung parenchyma. Reticular bibasilar opacities. These are unchanged from prior. No large effusion or pneumothorax allowing for the degree of radiolucency of the upper lobes. Osseou s structures normal. Upper abdomen normal. IMPRESSION: 1. Severe emphysema. No focal infiltrate to suggest pneumonia. 2. Bibasilar reticular opacities may relate to less emphysematous lung parenchyma, atelectasis, aspi ration, or developing fibrosis in the setting of smoking related lung injury. These findings are guille lar to prior. Electronically signed by: Wei Lundberg M.D. 01/02/2019 3:58 PM
--- NOTE | 2019-01-02 15:59 | XRay Report ---
KUB HISTORY: Generalized abdominal pain. Rule out obstruction vs. ileus COMPARISON: None. FINDINGS: Mildly dilated gas-filled loops of large and small bowel are seen throughout the abdomen. T here is gas and stool within the distal colon. The rectum is partially obscured by the contrast withi n the bladder from the recent CT examination. Interval placement of an aortobiiliac stent. The stomac h is also mildly distended and gas-filled. No renal calculi. No ureteral calculi. No pneumoperitoneu m or pneumatosis. IMPRESSION: 1. Interval placement of an aortobiiliac stent graft. This is likely in good position. 2. Multiple dilated gas-filled loops of large and small bowel as well as a gas-filled distended stoma ch. This favors an ileus. Electronically signed by: Uriel Tan M.D. 01/02/2019 3:58 PM
--- NOTE | 2019-01-02 16:16 | Hospitalist Consultation ---
Date of Consultation January 02, 2019 Assessment & Plan (1) Ruptured abdominal aortic aneurysm (AAA): - S/p EVAR with BL groin cutdown on 12/31/18, POD#2. - Primary management per Dr. Mckeon and vascular surgery. - KUB showed adequate placement of aortobiliac stent graft. - Resumed Plavix post op; V/Q scan pending - may require therapeutic anticoagulation, discussed with Dr. Mckeon this afternoon. (2) Acute and chronic respiratory failure with hypoxia: - Requires 4L via NC at home in setting of COPD; O2 sat has been decreased, 80-82% on 10L via NC. - Consider pulmonary edema in setting of 3 kg weight gain since admission but CXR was negative - did receive Lasix 40 mg IV x 1 dose per nephro. - Possible PE in post op setting, multiple risk factors -- bilat LE dopplers and V/Q scan pending. - COPD exacerbation is unlikely - no wheezing noted on exam; continue scheduled nebs but will hold IV steroids and abx. - ?Aspiration PNA -- CXR was negative, will monitor. - Respiratory therapy evaluation -- placed on high flow oxygen with improvement. (3) Acute renal failure: - Creatinine increased to 2.23, baseline ~1.6-1.8. - Has also had decreased urine output over last 24 hours; bladder scanned for minimal amount but will insert andrade to monitor accurate I/O's. - U/a, urine sodium and creatinine all pending collection. - Received Lasix 40 mg IV x 1 dose per nephro; will hold further diuretics and monitor volume status closely. - Monitor renal function closely -- labs ordered at 8 pm. - Holding nephrotoxic agents. (4) Oliguria: - As noted above; inserting andrade to document accurate I/Os. (5) CKD (chronic kidney disease) stage 3, GFR 30-59 ml/min: - Renally dose all meds. - ARF as noted above. (6) Ileus: - Has abd bloating and discomfort; KUB showed ileus. - NPO except meds; can have sips of water, will hold continuous fluids in setting of weight gain. - No indication for NG tube at this time. - Continue to monitor for resolution. (7) COPD with emphysema: - Requires 4L via NC at baseline, currently requiring high flow as noted above. - Acute resp issues are not likely related to COPD exacerbation. - Duonebs QID scheduled with Albuterol QID prn. (8) CAD (coronary artery disease): - S/p stent placement at [facility] in 2002. Also had an NSTEMI in 2016, s/p cardiac cath followed by medical management. - Continue Plavix, Simvastatin, Metoprolol as prescribed. - EKG this afternoon showed ST depression in the anterolateral leads; will monitor Trop q8hr x 3 starting this evening. - Does not have acute chest tightness but complains of SOB (see above) (9) HTN (hypertension): - Continue Amlodipine 10 mg daily, Metoprolol 75 mg BID as prescribed. - Currently hypertensive, may need additional agent -- will monitor. (10) HLD (hyperlipidemia): - Continue statin as prescribed. (11) PAD (peripheral artery disease): - S/p bilat iliac artery stents, completed at [facility] [place]. - Continue statin and plavix as prescribed. (12) GERD (gastroesophageal reflux disease): - PPI daily. (13) DVT prophylaxis: - SCDs; holding pharmacologic ppx, may need to start heparin drip pending results of V/Q scan. Dispo: Upgrade to PCU/tele for evaluation of hypoxia and acute renal failure. Will continue to monitor. History of Present Illness Reason for Consultation: Medical Management Attending Physician: Milton Mckeon MD History of Present Illness Mr. Valladares is a 78 year old male with past medical history of COPD, chronic resp failure, HTN, Stage III CKD, PAD, HLD, Prostate cancer, CAD who presented on 12/31/18 with a ruptured AAA. He is status post EVAR with BL groin cutdown on 12/31/18. Pt. was doing well post op but did develop increasing hypoxia this afternoon. He requires 4L via NC at home, both at rest and with exertion. O2 via NC has been increased to 6L during this admission; O2 sat was 80-82% this afternoon on 10L via NC. He also had shortness of breath at rest. Respiratory therapy evaluated him and started high flow oxygen -- he felt improved overall and O2 sat has been stable >90%. Pt. complains of abd bloating -- he is passing gas but has not had a BM. KUB showed an ileus. Denies nausea/vomiting, fever/chills, chest pain, radiation of chest pain down arms or to jaw. Creatinine is increased to 2.2; he has not had adequate urine output over the last 24 hours. Voided around 7 am this morning but had not voided since this episode. Had 50 cc urine output this afternoon, bladder scanned for ~80 cc. He denies dysuria or hematuria -- will send U/a, urine creat and Na. Allergies Allergy/AdvReac Type Severity Reaction Status Date / Time No Known Allergies Allergy Verified 12/31/18 07:15 Home Medications Home Medications Medication Instructions Recorded Confirmed Type albuterol sulfate 2.5 mg INHALATION QID PRN 12/31/18 12/31/18 History Patient History Medical History AAA (abdominal aortic aneurysm) CAD (coronary artery disease) COPD (chronic obstructive pulmonary disease) Emphysema of lung Myocardial infarct, old PVD (peripheral vascular disease) Surgical History H/O angioplasty (Inactive) S/P coronary artery stent placement S/P insertion of iliac artery stent Family History Father Family history non-contributory Social History Preferred Language: Tristanian Communication Ability: Effective Geneticist Required: No Beliefs That Will Affect Care: None marital status: Current Living Situation: Other Current Living Situation Comment: admitted to inpatient hospice current occupational status: retired Other Information That Helps Us Care for You: No Feels Safe at Home: Yes Safety Concerns: Feels Safe At This Time Smoking Status: Former smoker Do You Dip or Chew Tobacco: No ; Smoking End Date: 2013 ; Second Hand Exposure: No ; Tobacco Cessation Education Requested by Patient: No Hx Alcohol Use: No Hx Substance Use: No Review of Systems Review of Systems: All systems reviewed & are unremarkable except as noted in HPI & below Constitutional: + fatigue and + weakness; no fever, no chills and no anorexia Respiratory: + dyspnea and + dyspnea on exertion; no cough and no wheezing Cardiovascular: no chest pain, no palpitations, no lightheadedness, no syncope and no edema Gastrointestinal: + abdominal pain, + bloating and + constipation; no nausea, no vomiting and no diarrhea/loose stools Genitourinary: + difficulty urinating and + decreased urination; no dysuria and no hematuria Musculoskeletal: no back pain and no joint pain Integumentary: no non-healing lesions Allergy / Immunological: no rash Physical Exam Physical Exam: General: Resting comfortably, no acute distress. HEENT: NC/AT; PERRLA with EOMI; Gideon conjunctiva, MMM. No erythema of posterior pharynx Neck: Supple and nontender Cardiac: Tachycardic, regular. Lungs: on high flow oxygen; clear to auscultation throughout Abdomen: Moderately distended; Bowel normoactive X 4; Firm but non tender to palpation. Extremities: Warm. No edema present Neuro: No focal weakness Skin: No rash Results & Data Vital Signs (Past 12 Hours) Vital Signs Temp Pulse Pulse Resp BP BP Pulse Ox 01/02/19 15:55 93 H 22 94 01/02/19 15:25 36.9 C 92 H 24 171/82 H 88 L 01/02/19 15:11 83 19 93 01/02/19 13:32 88 L 01/02/19 12:55 91 01/02/19 12:50 93 01/02/19 11:26 119 H 28 H 78 L 01/02/19 07:27 36.8 C 86 22 162/77 H 92 01/02/19 07:09 88 22 92 Laboratory Results 01/02/19 01/02/19 12/31/18 Range/Units 05:02 05:02 08:54 WBC 10.40 (4.8-10.8) K/uL RBC 3.11 L (4.7-6.1) M/uL Hgb 9.2 L (14.0-18.0) g/dL Hct 28.0 L (42-52) % MCV 90.0 (80-100) fL MCH 29.6 (25-34) pg MCHC 32.9 (32-36) g/dL RDW Std Deviation 48.3 H (36.4-46.3) fL RDW Coeff of Tamara 14.9 H (11.5-14.5) % Plt Count 141 (130-400) K/uL MPV 9.9 (7.4-10.4) fL Immature Gran % (Auto) 0.4 % Neut % (Auto) 74.5 % Lymph % (Auto) 8.6 % [place] % (Auto) 15.1 % Eos % (Auto) 1.3 % Baso % (Auto) 0.1 % Immature Gran # (Auto) 0.04 H (0.00-0.02) K/uL Neut # (Auto) 7.76 H (1.4-6.5) K/uL Lymph # (Auto) 0.89 L (1.2-3.4) K/uL [place] # (Auto) 1.57 H (0.11-0.59) K/uL Eos # (Auto) 0.13 (0-0.5) K/uL Baso # (Auto) 0.01 (0-0.2) K/uL Sodium 135 L (136-145) mmol/L Potassium 4.4 (3.5-5.1) mmol/L Chloride 102 (98-107) mmol/L Carbon Dioxide 27 (21-32) mmol/L Anion Gap 6.0 (3-11) BUN 31 H (7-18) mg/dl Creatinine 2.23 H D (0.6-1.4) mg/dl Est Cr Clr Drug Dosing 27.7 ml/min Est GFR ( Amer) 31.5 Est GFR (Non-Af Amer) 27.2 BUN/Creatinine Ratio 14.0 (10-20) Glucose 96 (70-99) mg/dl Calcium 8.0 L (8.5-10.1) mg/dl Crossmatch See Detail PG Care Time/CCT Total # of Minutes Spent Total Time Spent with Patient: Total time spent is greater than 50% in coordination of care (as documented) at patient's floor/unit and/or counseling patient:
[2019-01-02 16:56] LABS: Appearance Urine Clear (Clear); Bacteria Urine Automated Negative (Negative); Bilirubin Urine Negative (Negative); Blood Urine 2+ (Negative); Color Urine Yellow; Epithelial Cell Urine Auto >30 /lpf (0-5); Glucose Urine UA Negative (Negative); Ketones Urine Negative (Negative); Leukocyte Esterase Urine Trace (Negative); Nitrite Urine Negative (Negative); Protein Urine 2+ (Negative); Specific Gravity Urine 1.023 (1.000-1.030); Urobilinogen Urine Negative (Negative)
[2019-01-02 18:01] LABS: Hematocrit (blood only) 29.2 % (42-52); Hemoglobin 9.6 g/dL (14.0-18.0); Mean Corpuscular Hemoglobin 29.5 pg (25-34); Mean Corpuscular Volume 89.8 fL (80-100); Mean Platelet Volume 9.6 fL (7.4-10.4); Platelet Count 154 K/uL (130-400); RDW Coefficient of Variation 14.9 % (11.5-14.5); RDW Standard Deviation 49.3 fL (36.4-46.3); Red Blood Count 3.25 M/uL (4.7-6.1); White Blood Count 12.29 K/uL (4.8-10.8)
[2019-01-02 18:05] LABS: Mean Corpuscular Hgb Conc 32.9 g/dL (32-36)
[2019-01-02 18:20] LABS: BUN Creatinine Ratio 14.7 (10-20); Calcium 8.3 mg/dl (8.5-10.1); Creatinine Clr Calc Pharmacy 23.1 ml/min; Est GFR (African American) 25.3; Est GFR (Non-African American) 21.8; Potassium 4.8 mmol/L (3.5-5.1)
[2019-01-02] MEDS: HEPARIN SOD (PORCINE) 1000 UNIT/ML 10 ML VIAL IV SCH (18:39)
--- NOTE | 2019-01-02 20:56 | Nuclear Medicine Report ---
NUCLEAR PULMONARY PERFUSION SCAN CLINICAL HISTORY: Hypoxia. COMPARISON STUDY: Chest x-ray dated 01/02/2019. TECHNIQUE: Perfusion scanning of both lungs were obtained following the IV administration of 6.3 mCi of technetium 99m MAA. Ventilatory scanning could not be performed. The perfusion images were acquire d in the anterior, posterior, and oblique projections. FINDINGS: A chest x-ray performed 01/02/2019 shows cardiomegaly and emphysema. Airspace consolidation is present at the left lung base. No large pleural effusion is identified. The perfusion of both lungs is marke dly heterogeneous. There is diminished perfusion of the right lung as compared to the left. IMPRESSION: 1. The ventilatory scan could not be performed. 2. The perfusion scan is markedly heterogeneous, likely due to advanced chronic lung disease. This ex amination is of limited diagnostic utility. 3. There is globally diminished perfusion of the right lung as compared to the left. Central pulmonar y embolus would be impossible to exclude. If there strong clinical concern for pulmonary embolic dise ase a CT angiogram of the chest should be performed. 4. Airspace consolidation is seen at the left lung base on today's chest x-ray. Correlate clinically for evidence of an infectious/inflammatory pneumonitis. Electronically signed by: Steven Zimmerman M.D. 01/02/2019 8:55 PM
--- NOTE | 2019-01-02 20:59 | Ultrasound Report ---
ULTRASOUND BILATERAL LOWER EXTREMITY VENOUS CLINICAL HISTORY: Lower extremity edema. COMPARISON STUDY: No priors. TECHNIQUE: Real-time, grayscale, and color Doppler sonography of the deep veins of the right and left lower extremity was performed from the inguinal crease to the calf. Compression and augmentation wer e utilized. FINDINGS: There is no sonographic evidence of deep venous thrombosis identified in the right or left lower extremity. The common femoral, superficial femoral, and popliteal veins are patent and normally compressible bilaterally. The greater saphenous vein and the profunda femoris vein at the junction w ith the common femoral vein are clear in both legs. The visualized calf veins are patent bilaterally. There is a complex nonvascular fluid collection identified in the left groin measuring 7.1 x 2.1 x 3 .7 cm. IMPRESSION: 1. There is no sonographic evidence of deep venous thrombosis identified in the right or left lower e xtremity. 2. There is a complex fluid collection in the left groin as detailed above, likely representing hemat rishabh. Clinical correlation will be required. Electronically signed by: Steven Zimmerman M.D. 01/02/2019 8:58 PM
--- NOTE | 2019-01-02 21:01 | Ultrasound Report ---
ULTRASOUND KIDNEYS AND BLADDER CLINICAL HISTORY: Acute renal insufficiency. COMPARISON STUDY: Abdominal CT dated 12/31/2018. TECHNIQUE: Real-time, grayscale, and color flow sonography of the kidneys and bladder is performed. I mages are reviewed in the transverse and longitudinal planes. FINDINGS: Kidneys: The kidneys are atrophic and echogenic consistent with medical renal disease. The right kidn ey measures 9.8 cm in length and the left kidney measures 11.5 cm in length. There is no hydronephros is. No shadowing renal calculi are identified. Bilateral renal cysts measure up to 3.0 cm. There is n o sonographic evidence of contour deforming renal mass lesion. No perinephric fluid is identified. Bladder: The bladder is decompressed around a Damico catheter and could not be assessed. IMPRESSION: 1. The kidneys are atrophic and echogenic consistent with medical renal disease. 2. There is no hydronephrosis. 3. The bladder was decompressed around a Damico catheter and could not be assessed. Electronically signed by: Steven Zimmerman M.D. 01/02/2019 9:00 PM
[2019-01-03 03:56] LABS: Hematocrit (blood only) 26.7 % (42-52); Mean Corpuscular Hemoglobin 29.7 pg (25-34); Mean Corpuscular Hgb Conc 33.7 g/dL (32-36); Mean Corpuscular Volume 88.1 fL (80-100); Mean Platelet Volume 9.5 fL (7.4-10.4); Platelet Count 157 K/uL (130-400); RDW Coefficient of Variation 14.8 % (11.5-14.5); RDW Standard Deviation 48.1 fL (36.4-46.3); Red Blood Count 3.03 M/uL (4.7-6.1); White Blood Count 12.21 K/uL (4.8-10.8)
[2019-01-03 04:18] LABS: Alanine Aminotransferase 14 U/L (12-78); Albumin Level 2.4 gm/dl (3.4-5.0); Aspartate Aminotransferase 33 U/L (15-37); BUN Creatinine Ratio 18.2 (10-20); Blood Urea Nitrogen 45 mg/dl (7-18); Calcium 7.9 mg/dl (8.5-10.1); Carbon Dioxide 27 mmol/L (21-32); Chloride 100 mmol/L (98-107); Creatinine Clr Calc Pharmacy 24.9 ml/min; Est GFR (African American) 27.7; Est GFR (Non-African American) 23.9; Glucose 94 mg/dl (70-99); Potassium 4.6 mmol/L (3.5-5.1); Sodium 134 mmol/L (136-145)
[2019-01-03 04:23] LABS: Albumin Globulin Ratio 0.7 (0.9-2); Alkaline Phosphatase 67 U/L (45-117); Bilirubin,Total 0.6 mg/dl (0.2-1); Globulin 3.4 gm/dl (2.5-4.0); Total Protein 5.8 gm/dl (6.4-8.2); Troponin I < 0.015 ng/ml (0-0.045)
[2019-01-03] MEDS: ALBUT/IPRATROP 3MG/0.5MG NEB 3 ML VIAL NEB SCH ×6 (05:30→19:19)
[2019-01-03] MEDS: AMLODIPINE BESYLATE 5 MG TAB PO SCH (07:40)
[2019-01-03] MEDS: DOCUSATE SODIUM 100 MG CAP PO SCH ×2 (07:40→20:17)
[2019-01-03] MEDS: SIMVASTATIN 40 MG TAB PO SCH (07:40)
[2019-01-03] MEDS: METOPROLOL TARTRATE 50 MG TAB PO SCH ×2 (07:41→20:17)
[2019-01-03] MEDS: PANTOprazole 40 MG TAB PO SCH (07:41)
[2019-01-03] MEDS: CLOPIDOGREL BISULFATE 75 MG TAB PO SCH (07:41)
[2019-01-03] MEDS: CHOLECALCIFEROL 1,000 UNITS TAB PO SCH (07:41)
--- NOTE | 2019-01-03 08:33 | CT Scan Report ---
CT chest wo con CLINICAL HISTORY: Atypical chest pain. HYPOXIA. COMPARISON STUDY: Chest x-ray dated 12/31/2018 CT DOSE: 353.28 mGy.cm TECHNIQUE: CT of the thorax was performed from the thoracic inlet to the lung bases. Images are revi ewed in the axial, sagittal, and coronal planes. IV contrast was not administered for this examinatio n. A dose lowering technique was utilized adhering to the principles of ALARA. FINDINGS: Thyroid: Imaged portions of the thyroid gland are normal in appearance. Thoracic aorta: The thoracic aorta is normal in course and caliber, noting standard 3 vessel arch jcarlos pieter. Heart: The heart is normal in size. There is trace pericardial fluid. There are coronary artery calci fications. Lungs and pleural spaces: There are small bilateral pleural effusions. There is severe pulmonary emph ysema. There are dependent airspace opacity statistically atelectatic. There is lower lobe bronchial wall thickening. There is a solid 9 mm left lower lobe pulmonary nodule Mediastinum: There is no evidence of pathologic mediastinal lymphadenopathy. Lucy: There is no evidence of pathologic hilar adenopathy given the limitations of a noncontrast stud y. Axilla: There is no evidence of pathologic axillary lymphadenopathy. Upper abdomen: Increased density gallbladder, may represent vicarious excretion. There is right-side d nephrolithiasis. Upper pole right renal cysts are visualized. There is a stable hepatic hypodensity likely representing a cyst. Skeletal structures: There are no lytic or blastic osseous lesions. IMPRESSION: 1. Severe pulmonary emphysema 2. Small bilateral pleural effusions 3. Dependent airspace opacities likely atelectatic 4. Lower lobe bronchial wall thickening 5. Solid 9 mm left lower lobe pulmonary nodule. A 3 month follow-up CT scan or PET CT scan is recomme nded. Please refer to below summary of Fleischner criteria recommendations for follow-up of incidental CT n odules (John Jones, Guidelines for management of small pulmonary nodules detected on CT scans: A sta tement from the Fleischner Society, Radiology 237: [id number].) SOLID NODULES Solitary nodule size: <6 mm * low risk patients: no follow-up needed * high risk patients: optional CT at 12 months Solitary nodule size: 6-8 mm * low risk patients: follow-up at 6-12 months, then consider further follow-up at 18-24 months * high risk patients: initial follow-up CT at 6-12 months and then at 18-24 months if no change Solitary nodule size: >8 mm * either low or high risk patients - consider follow-up CT at 3 months, and/or CT-PET, and/or biopsy Multiple nodules size: <6 mm * low risk patients: no routine follow-up * high risk patients: optional CT at 12 months Multiple nodules size: 6-8 mm * low risk patients: follow-up at 3-6 months, then consider further follow-up at 18-24 months * high risk patients: follow-up at 3-6 months, then at 18-24 months if no change Multiple nodules size: >8 mm * low risk patients: follow-up at 3-6 months, then consider further follow-up at 18-24 months * high risk patients: follow-up at 3-6 months, then at 18-24 months if no change Note: newly detected indeterminate nodule in persons 35 years of age or older. * low risk patients: minimal or absent history of smoking and/or other known risk factors * high risk patients: history of smoking or of other known risk factors (e.g. first degree relative with lung cancer, or exposure to asbestos, radon, uranium) * if a nodule up to 8 mm is partly solid or is ground glass further follow-up is required after 24 m onths to exclude possible slow growing adenocarcinoma (IRIS) SUBSOLID NODULES Solitary pure ground-glass nodule * nodule size <6 mm - no CT follow-up required * nodule size >=6 mm - follow-up CT at 6-12 months, then every 2 years until 5 years Solitary part-solid nodule * nodule size <6 mm - no CT follow-up required * nodule size >=6 mm - follow-up CT at 3-6 months. If unchanged, and solid component remains <6 mm, then annual follow-up for 5 years Multiple subsolid nodules * nodule size <6 mm - follow-up CT at 3-6 months, consider further follow-up at 2 and 4 years if sta ble * nodule size >=6 mm - follow-up CT at 3-6 months, subsequent management based on the most suspiciou s nodule(s) Electronically signed by: Bruce Strickland M.D. 01/03/2019 8:31 AM
[2019-01-03] MEDS ORDERED: methylPREDNISolone 40 MG in SYRINGE 0 ML IV SCH (09:00)
[2019-01-03] MEDS ORDERED: PIPERACILL/TAZOBAC CONSULT ACTIVE PRN (09:02)
--- NOTE | 2019-01-03 09:21 | Nephrology Progress Note ---
Date of Service January 03, 2019 Assessment & Plan (1) Acute kidney injury: -- Endovascular repair of AAA 09/30/2018 -- Hemodynamic MIRIAM consistent with ATN -- early signs of renal recovery noted this morning including improvement in urine output and stabilization of creatinine -- maintain Damico to gravity -- renal ultrasound reviewed this morning -- continued maintained in net negative fluid balance goal approximately 1 liter over the course of the next 24 hours, furosemide as needed 40 mg IV provided yesterday -- repeat metabolic profile tomorrow a.m. 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 Breathing comfortably. No chest pain. Urine output improved. Damico draining clear yellow urine. Denies abdominal pain. Overall, Mr. Valladares feels well. Review of Systems Review of Systems: All systems reviewed & are unremarkable except as noted in HPI & below Physical Exam Constitutional: well developed; no acute distress Eyes: no scleral abnormality and no corneal abnormality ENMT: Ears: no hearing impairment Mouth: + oral mucosal abnormality Neck: normal visual inspection and trachea midline Respiratory: + labored breathing Auscultation: + diminished lung sounds and + rales Cardiovascular: Rate/Rhythm: regular rate Heart Sounds: normal S1, normal S2 and + murmur Musculoskeletal: Extremities: no cyanosis and no clubbing Skin: normal turgor; no lesions Neurologic: Motor/Sensory: no tremor and no asterixis Psychiatric: Orientation: alert and oriented x 3 Results & Data Vital Signs (Past 12 Hours) Vital Signs Temp Pulse Pulse Pulse Pulse Resp BP 01/03/19 07:36 37.3 C 77 22 01/03/19 07:04 77 20 01/03/19 06:19 77 01/03/19 05:30 93 H 22 01/03/19 03:57 82 21 01/03/19 03:39 37.4 C 85 21 01/03/19 00:51 78 01/02/19 23:43 37.3 C 82 26 H 143/59 H 01/02/19 21:20 96 H 20 BP Pulse Ox 01/03/19 07:36 160/67 H 91 01/03/19 07:04 94 01/03/19 06:19 01/03/19 05:30 91 01/03/19 03:57 95 01/03/19 03:39 160/75 H 92 01/03/19 00:51 01/02/19 23:43 92 01/02/19 21:20 94 Laboratory Results Laboratory Results - last 24 hr 12/31/18 01/02/19 01/02/19 08:54 16:42 16:42 WBC RBC Hgb Hct MCV MCH MCHC RDW Std Deviation RDW Coeff of Tamara Plt Count MPV Sodium Potassium Chloride Carbon Dioxide Anion Gap BUN Creatinine Est Cr Clr Drug Dosing Est GFR ( Amer) Est GFR (Non-Af Amer) BUN/Creatinine Ratio Glucose Calcium Total Bilirubin AST ALT Alkaline Phosphatase Troponin I Total Protein Albumin Globulin Albumin/Globulin Ratio Urine Color Urine Appearance Urine pH Ur Specific [place] Urine Protein Urine Glucose (UA) Urine Ketones Urine Blood Urine Nitrite Urine Bilirubin Urine Urobilinogen Ur Leukocyte Esterase Urine WBC (Auto) Urine RBC (Auto) U Hyaline Cast (Auto) U Epithel Cells (Auto) Urine Bacteria (Auto) Ur Random Creatinine 181.0 Ur Random Sodium 42 Crossmatch See Detail 01/02/19 01/02/19 01/02/19 16:42 17:54 17:54 WBC 12.29 H RBC 3.25 L Hgb 9.6 L Hct 29.2 L MCV 89.8 MCH 29.5 MCHC 32.9 RDW Std Deviation 49.3 H RDW Coeff of Tamara 14.9 H Plt Count 154 MPV 9.6 Sodium 133 L Potassium 4.8 Chloride 100 Carbon Dioxide 25 Anion Gap 8.0 BUN 40 H Creatinine 2.68 H D Est Cr Clr Drug Dosing 23.1 Est GFR ( Amer) 25.3 Est GFR (Non-Af Amer) 21.8 BUN/Creatinine Ratio 14.7 Glucose 104 H Calcium 8.3 L Total Bilirubin AST ALT Alkaline Phosphatase Troponin I Total Protein Albumin Globulin Albumin/Globulin Ratio Urine Color Yellow Urine Appearance Clear Urine pH 5.0 Ur Specific [place] 1.023 Urine Protein 2+ H Urine Glucose (UA) Negative Urine Ketones Negative Urine Blood 2+ H Urine Nitrite Negative Urine Bilirubin Negative Urine Urobilinogen Negative Ur Leukocyte Esterase Trace H Urine WBC (Auto) 1-5 Urine RBC (Auto) 5-10 H U Hyaline Cast (Auto) 10-30 H U Epithel Cells (Auto) >30 H Urine Bacteria (Auto) Negative Ur Random Creatinine Ur Random Sodium Crossmatch 01/02/19 01/03/19 01/03/19 21:14 03:34 03:34 WBC 12.21 H RBC 3.03 L Hgb 9.0 L Hct 26.7 L MCV 88.1 MCH 29.7 MCHC 33.7 RDW Std Deviation 48.1 H RDW Coeff of Tamara 14.8 H Plt Count 157 MPV 9.5 Sodium 134 L Potassium 4.6 Chloride 100 Carbon Dioxide 27 Anion Gap 7.0 BUN 45 H Creatinine 2.48 H Est Cr Clr Drug Dosing 24.9 Est GFR ( Amer) 27.7 Est GFR (Non-Af Amer) 23.9 BUN/Creatinine Ratio 18.2 Glucose 94 Calcium 7.9 L Total Bilirubin 0.6 AST 33 ALT 14 Alkaline Phosphatase 67 Troponin I < 0.015 < 0.015 Total Protein 5.8 L Albumin 2.4 L Globulin 3.4 Albumin/Globulin Ratio 0.7 L Urine Color Urine Appearance Urine pH Ur Specific [place] Urine Protein Urine Glucose (UA) Urine Ketones Urine Blood Urine Nitrite Urine Bilirubin Urine Urobilinogen Ur Leukocyte Esterase Urine WBC (Auto) Urine RBC (Auto) U Hyaline Cast (Auto) U Epithel Cells (Auto) Urine Bacteria (Auto) Ur Random Creatinine Ur Random Sodium Crossmatch PG Care Time/CCT Total # of Minutes Spent Total Time Spent with Patient: Total time spent is greater than 50% in coordination of care (as documented) at patient's floor/unit and/or counseling patient:
[2019-01-03] MEDS ORDERED: PIPERACILLIN/TAZOBACTAM 4.5 GM in DEXTROSE 5% 100 ML IV ONE (09:30)
--- NOTE | 2019-01-03 11:03 | Hospitalist Progress Note ---
Date of Service January 03, 2019 Assessment & Plan (1) Ruptured abdominal aortic aneurysm (AAA): - S/p EVAR with BL groin cutdown on 12/31/18, POD#3. - Primary management per vascular surgery. - KUB showed adequate placement of aortobiliac stent graft. - Resumed Plavix post op; V/Q scan did not rule out PE, was a very limited study - will hold anticoagulation therapy in setting of ?left groin hematoma on venous doppler. (2) Acute and chronic respiratory failure with hypoxia: - On 4L via NC at home in setting of COPD; has been requiring high flow oxygen over last 24 hours. - May be related to PE in post op setting -- V/Q scan was a very limited study, CTA contraindicated due to ARF. Doppler of bilat LE negative. - Treatment for COPD with PO Prednisone; does not require abx - procalcitonin was negative with no evidence of PNA. - Consider pulm edema -- ~3 kg weight gain, chest CT did show small bilat pleural effusions. Received Lasix 40 mg IV on 01/02, will give Lasix 20 mg IV this afternoon. - Consulted pulmonology, appreciate input. Will need to establish care as new patient in the clinic. - Will wean oxygen as tolerated; BiPAP to be applied qhs. - Flutter valve QID and IS q1hr while awake. (3) COPD with emphysema: - Mild acute exacerbation in setting of hypoxia and scattered wheezing noted on exam. - Currently requiring high flow oxygen (see above) - Started Prednisone 60 mg PO daily per pulmonary recs. - Received Zosyn x 1 dose, will d/c further abx as pt. does not have PNA. - Duonebs QID scheduled with Albuterol prn. - Will need to establish care with pulmonary in outpatient clinic; will also benefit from additional agent at home, consider Symbicort. (4) Acute renal failure: - Creatinine peaked at 2.6 on 01/02, now trending down; baseline ~1.6-1.8. Likely related to acute tubular necrosis. - Had minimal urine output, now significantly improved; continue andrade for accurate I/O's. - Renal US was negative for obstruction. - U/a +hyaline casts, negative for infection. - Received Lasix 40 mg IV x 1 on 10/7; Lasix 20 mg IV x 1 dose today with goal net negative fluid balance of ~1L. - Monitor renal function daily. - Holding nephrotoxic agents. - Nephrology following, appreciate input. (5) Oliguria: - Now resolved; continue andrade for accurate I/Os. (6) CKD (chronic kidney disease) stage 3, GFR 30-59 ml/min: - Renally dose all meds. - ARF as noted above. (7) Ileus: - Ongoing abd bloating and discomfort; KUB showed ileus on 01/02. - NPO except meds; sips of water only. - No indication for NG tube. - Colace 100 mg BID with Miralax daily scheduled; can advance diet this evening if bowel function is improving. (8) Groin hematoma: - Complex fluid collection in left groin noted on doppler of LE -- likely related to hematoma. - Will hold Heparin ppx; continue Plavix and monitor for signs of increased bleeding. (9) CAD (coronary artery disease): - S/p stent placement at [facility] in 2002. Also had an NSTEMI in 2016, s/p cardiac cath followed by medical management. - Continue Plavix, Simvastatin, Metoprolol as prescribed. - EKG showed ST depression in the anterolateral leads; Trop level x 2 were negative. - Does not have acute chest tightness, does c/o SOB (see above) (10) HTN (hypertension): - Continue Amlodipine 10 mg daily, Metoprolol 75 mg BID as prescribed. - Currently hypertensive - will continue to monitor. (11) HLD (hyperlipidemia): - Continue statin as prescribed. (12) PAD (peripheral artery disease): - S/p bilat iliac artery stents, completed [place] [facility] - Continue statin and plavix as prescribed. (13) Pulmonary nodule: - CT showed solid 9 mm LLL nodule; high risk patient in setting of tobacco abuse. - Pulmonology consulted, appreciate input. (14) GERD (gastroesophageal reflux disease): - PPI daily. (15) DVT prophylaxis: - SCDs; holding pharmacologic ppx in setting of groin hematoma. Dispo: Continue treatment for COPD and evaluate for improvement in hypoxia. Nephro also following for acute renal failure. Subjective Pt. is on high flow, did not tolerate BiPAP overnight. O2 sat has remained stable with high flow support, will wean as tolerated. Pt. reports shortness of breath is improving but he is not back at baseline yet. He has not ambulated over last 24 hours to evaluate for SOB with exertion. Has abd bloating -- is passing gas but has not had a BM yet. Renal function slightly improved, will continue to monitor. Primary management per vascular surgery team. Review of Systems Review of Systems: All systems reviewed & are unremarkable except as noted in HPI & below Constitutional: + fatigue and + weakness; no fever, no chills and no anorexia Respiratory: + dyspnea and + wheezing; no cough Cardiovascular: no chest pain, no palpitations, no lightheadedness and no edema Gastrointestinal: + bloating, + nausea and + constipation; no abdominal pain Genitourinary: no dysuria, no difficulty urinating, no decreased urination and no hematuria Musculoskeletal: no back pain and no joint pain Integumentary: no non-healing lesions Physical Exam Physical Exam: General: Resting comfortably HEENT: NC/AT; PERRLA with EOMI; [place] conjunctiva, MMM. No erythema of posterior pharynx Neck: Supple and nontender Cardiac: RRR Lungs: on high flow oxygen; coarse breath sounds, scattered wheezing noted throughout. Abdomen: Moderately distended; Bowel normoactive X 4; Firm, tender to light palpation. Extremities: Warm. No edema present Neuro: No focal weakness Skin: No rash Results & Data Vital Signs (Past 12 Hours) Vital Signs Temp Pulse Pulse Pulse Resp BP BP 01/03/19 07:36 37.3 C 77 22 160/67 H 01/03/19 07:04 77 20 01/03/19 06:19 77 01/03/19 05:30 93 H 22 01/03/19 03:57 82 21 01/03/19 03:39 37.4 C 85 21 160/75 H 01/03/19 00:51 78 01/02/19 23:43 37.3 C 82 26 H 143/59 H Pulse Ox 01/03/19 07:36 91 01/03/19 07:04 94 01/03/19 06:19 01/03/19 05:30 91 01/03/19 03:57 95 01/03/19 03:39 92 01/03/19 00:51 01/02/19 23:43 92 Laboratory Results 01/03/19 01/03/19 01/03/19 Range/Units 09:30 03:34 03:34 WBC 12.21 H (4.8-10.8) K/uL RBC 3.03 L (4.7-6.1) M/uL Hgb 9.0 L (14.0-18.0) g/dL Hct 26.7 L (42-52) % MCV 88.1 (80-100) fL MCH 29.7 (25-34) pg MCHC 33.7 (32-36) g/dL RDW Std Deviation 48.1 H (36.4-46.3) fL RDW Coeff of Tamara 14.8 H (11.5-14.5) % Plt Count 157 (130-400) K/uL MPV 9.5 (7.4-10.4) fL Sodium 134 L (136-145) mmol/L Potassium 4.6 (3.5-5.1) mmol/L Chloride 100 (98-107) mmol/L Carbon Dioxide 27 (21-32) mmol/L Anion Gap 7.0 (3-11) BUN 45 H (7-18) mg/dl Creatinine 2.48 H (0.6-1.4) mg/dl Est Cr Clr Drug Dosing 24.9 ml/min Est GFR ( Amer) 27.7 Est GFR (Non-Af Amer) 23.9 BUN/Creatinine Ratio 18.2 (10-20) Glucose 94 (70-99) mg/dl Calcium 7.9 L (8.5-10.1) mg/dl Total Bilirubin 0.6 (0.2-1) mg/dl AST 33 (15-37) U/L ALT 14 (12-78) U/L Alkaline Phosphatase 67 (45-117) U/L Troponin I < 0.015 (0-0.045) ng/ml Total Protein 5.8 L (6.4-8.2) gm/dl Albumin 2.4 L (3.4-5.0) gm/dl Globulin 3.4 (2.5-4.0) gm/dl Albumin/Globulin Ratio 0.7 L (0.9-2) Procalcitonin 0.41 (0-0.5) ng/ml Urine Color Urine Appearance (Clear) Urine pH (4.5-7.5) Ur Specific [place] (1.000-1.030) Urine Protein (Negative) Urine Glucose (UA) (Negative) Urine Ketones (Negative) Urine Blood (Negative) Urine Nitrite (Negative) Urine Bilirubin (Negative) Urine Urobilinogen (Negative) Ur Leukocyte Esterase (Negative) Urine WBC (Auto) (0-5) /hpf Urine RBC (Auto) (0-4) /hpf U Hyaline Cast (Auto) (0-5) /lpf U Epithel Cells (Auto) (0-5) /lpf Urine Bacteria (Auto) (Negative) Ur Random Creatinine mg/dl Ur Random Sodium mmol/L Crossmatch 01/02/19 01/02/19 01/02/19 Range/Units 21:14 17:54 17:54 WBC 12.29 H (4.8-10.8) K/uL RBC 3.25 L (4.7-6.1) M/uL Hgb 9.6 L (14.0-18.0) g/dL Hct 29.2 L (42-52) % MCV 89.8 (80-100) fL MCH 29.5 (25-34) pg MCHC 32.9 (32-36) g/dL RDW Std Deviation 49.3 H (36.4-46.3) fL RDW Coeff of Tamara 14.9 H (11.5-14.5) % Plt Count 154 (130-400) K/uL MPV 9.6 (7.4-10.4) fL Sodium 133 L (136-145) mmol/L Potassium 4.8 (3.5-5.1) mmol/L Chloride 100 (98-107) mmol/L Carbon Dioxide 25 (21-32) mmol/L Anion Gap 8.0 (3-11) BUN 40 H (7-18) mg/dl Creatinine 2.68 H D (0.6-1.4) mg/dl Est Cr Clr Drug Dosing 23.1 ml/min Est GFR ( Amer) 25.3 Est GFR (Non-Af Amer) 21.8 BUN/Creatinine Ratio 14.7 (10-20) Glucose 104 H (70-99) mg/dl Calcium 8.3 L (8.5-10.1) mg/dl Total Bilirubin (0.2-1) mg/dl AST (15-37) U/L ALT (12-78) U/L Alkaline Phosphatase (45-117) U/L Troponin I < 0.015 (0-0.045) ng/ml Total Protein (6.4-8.2) gm/dl Albumin (3.4-5.0) gm/dl Globulin (2.5-4.0) gm/dl Albumin/Globulin Ratio (0.9-2) Procalcitonin (0-0.5) ng/ml Urine Color Urine Appearance (Clear) Urine pH (4.5-7.5) Ur Specific [place] (1.000-1.030) Urine Protein (Negative) Urine Glucose (UA) (Negative) Urine Ketones (Negative) Urine Blood (Negative) Urine Nitrite (Negative) Urine Bilirubin (Negative) Urine Urobilinogen (Negative) Ur Leukocyte Esterase (Negative) Urine WBC (Auto) (0-5) /hpf Urine RBC (Auto) (0-4) /hpf U Hyaline Cast (Auto) (0-5) /lpf U Epithel Cells (Auto) (0-5) /lpf Urine Bacteria (Auto) (Negative) Ur Random Creatinine mg/dl Ur Random Sodium mmol/L Crossmatch 01/02/19 01/02/19 01/02/19 Range/Units 16:42 16:42 16:42 WBC (4.8-10.8) K/uL RBC (4.7-6.1) M/uL Hgb (14.0-18.0) g/dL Hct (42-52) % MCV (80-100) fL MCH (25-34) pg MCHC (32-36) g/dL RDW Std Deviation (36.4-46.3) fL RDW Coeff of Tamara (11.5-14.5) % Plt Count (130-400) K/uL MPV (7.4-10.4) fL Sodium (136-145) mmol/L Potassium (3.5-5.1) mmol/L Chloride (98-107) mmol/L Carbon Dioxide (21-32) mmol/L Anion Gap (3-11) BUN (7-18) mg/dl Creatinine (0.6-1.4) mg/dl Est Cr Clr Drug Dosing ml/min Est GFR ( Amer) Est GFR (Non-Af Amer) BUN/Creatinine Ratio (10-20) Glucose (70-99) mg/dl Calcium (8.5-10.1) mg/dl Total Bilirubin (0.2-1) mg/dl AST (15-37) U/L ALT (12-78) U/L Alkaline Phosphatase (45-117) U/L Troponin I (0-0.045) ng/ml Total Protein (6.4-8.2) gm/dl Albumin (3.4-5.0) gm/dl Globulin (2.5-4.0) gm/dl Albumin/Globulin Ratio (0.9-2) Procalcitonin (0-0.5) ng/ml Urine Color Yellow Urine Appearance Clear (Clear) Urine pH 5.0 (4.5-7.5) Ur Specific [place] 1.023 (1.000-1.030) Urine Protein 2+ H (Negative) Urine Glucose (UA) Negative (Negative) Urine Ketones Negative (Negative) Urine Blood 2+ H (Negative) Urine Nitrite Negative (Negative) Urine Bilirubin Negative (Negative) Urine Urobilinogen Negative (Negative) Ur Leukocyte Esterase Trace H (Negative) Urine WBC (Auto) 1-5 (0-5) /hpf Urine RBC (Auto) 5-10 H (0-4) /hpf U Hyaline Cast (Auto) 10-30 H (0-5) /lpf U Epithel Cells (Auto) >30 H (0-5) /lpf Urine Bacteria (Auto) Negative (Negative) Ur Random Creatinine 181.0 mg/dl Ur Random Sodium 42 mmol/L Crossmatch 12/31/18 Range/Units 08:54 WBC (4.8-10.8) K/uL RBC (4.7-6.1) M/uL Hgb (14.0-18.0) g/dL Hct (42-52) % MCV (80-100) fL MCH (25-34) pg MCHC (32-36) g/dL RDW Std Deviation (36.4-46.3) fL RDW Coeff of Tamara (11.5-14.5) % Plt Count (130-400) K/uL MPV (7.4-10.4) fL Sodium (136-145) mmol/L Potassium (3.5-5.1) mmol/L Chloride (98-107) mmol/L Carbon Dioxide (21-32) mmol/L Anion Gap (3-11) BUN (7-18) mg/dl Creatinine (0.6-1.4) mg/dl Est Cr Clr Drug Dosing ml/min Est GFR ( Amer) Est GFR (Non-Af Amer) BUN/Creatinine Ratio (10-20) Glucose (70-99) mg/dl Calcium (8.5-10.1) mg/dl Total Bilirubin (0.2-1) mg/dl AST (15-37) U/L ALT (12-78) U/L Alkaline Phosphatase (45-117) U/L Troponin I (0-0.045) ng/ml Total Protein (6.4-8.2) gm/dl Albumin (3.4-5.0) gm/dl Globulin (2.5-4.0) gm/dl Albumin/Globulin Ratio (0.9-2) Procalcitonin (0-0.5) ng/ml Urine Color Urine Appearance (Clear) Urine pH (4.5-7.5) Ur Specific [place] (1.000-1.030) Urine Protein (Negative) Urine Glucose (UA) (Negative) Urine Ketones (Negative) Urine Blood (Negative) Urine Nitrite (Negative) Urine Bilirubin (Negative) Urine Urobilinogen (Negative) Ur Leukocyte Esterase (Negative) Urine WBC (Auto) (0-5) /hpf Urine RBC (Auto) (0-4) /hpf U Hyaline Cast (Auto) (0-5) /lpf U Epithel Cells (Auto) (0-5) /lpf Urine Bacteria (Auto) (Negative) Ur Random Creatinine mg/dl Ur Random Sodium mmol/L Crossmatch See Detail PG Care Time/CCT Total # of Minutes Spent Total Time Spent with Patient: Total time spent is greater than 50% in coordination of care (as documented) at patient's floor/unit and/or counseling patient:
--- NOTE | 2019-01-03 11:11 | Surgery Progress Note ---
Date of Service January 03, 2019 Assessment & Plan (1) Ruptured abdominal aortic aneurysm (AAA): Pt now POD #3 from EVAR with BL groin cutdown. Pt with improved UO and Cr, but still not to baseline and still with positive fluid balanace. Still with increased oxygen requirements and ESPINOZA. Still no BM, add miralax. Incisions looking well. Continue to monitor. Subjective 78 yo m POD #3 after emergent EVAR and BL groin cutdown, seen in f/u today. Pt has increased UO considerably. Pt continues to have increased oxygen requirements and c/o ESPINZOA. Cr with slight improvement as well. Pt still without adequate BM. Physical Exam Constitutional: WD/WN, vitals as above Respiratory: normal respiratory effort (on oxygen) Auscultation: + diminished lung sounds and + crackles (mild bibasilar) Cardiovascular: Rate/Rhythm: regular rate and regular rhythm Vessels: dorsalis pedis pulses present Extremities: normal capillary refill and + edema Gastrointestinal (Abdomen): Inspection/Auscultation: + abdomen distended; + abnormal bowel sounds (distant) Percussion/Palpation: abdomen nontender and no guarding Musculoskeletal: no cyanosis or clubbing, extremities motor strength 5/5 Skin: + incision (BL groins C/D/I with will +tender, mild ecchymosis) Neurologic: moves all extremities; no focal motor deficits Speech / Cognition: normal speech Psychiatric: A+Ox3, euthymic affect Results & Data Vital Signs (Past 12 Hours) Vital Signs Temp Pulse Pulse Pulse Resp BP BP 01/03/19 11:03 79 20 01/03/19 09:49 90 22 01/03/19 07:36 37.3 C 77 22 160/67 H 01/03/19 07:04 77 20 01/03/19 06:19 77 01/03/19 05:30 93 H 22 01/03/19 03:57 82 21 01/03/19 03:39 37.4 C 85 21 160/75 H 01/03/19 00:51 78 01/02/19 23:43 37.3 C 82 26 H 143/59 H Pulse Ox 01/03/19 11:03 89 L 01/03/19 09:49 88 L 01/03/19 07:36 91 01/03/19 07:04 94 01/03/19 06:19 01/03/19 05:30 91 01/03/19 03:57 95 01/03/19 03:39 92 01/03/19 00:51 01/02/19 23:43 92
[2019-01-03 11:40] LABS: iSTAT Allen Test Pass; iSTAT Arterial Blood Gas HCO3 23 meg/L (19-24); iSTAT Arterial Blood Gas pCO2 40 mmHg (35-46); iSTAT Arterial Blood Gas pH 7.38 (7.35-7.45); iSTAT Arterial Blood Gas pO2 59 mmHg (80-95); iSTAT Carbon Dioxide 24 mEq/l (24-31); iSTAT Site L Radial
[2019-01-03] MEDS: POLYETHYLENE (MIRALAX) 17 GM PACK PO SCH (11:41)
[2019-01-03] MEDS ORDERED: LORazepam 0.5 MG TAB PO PRN (12:15)
[2019-01-03] MEDS ORDERED: predniSONE 10 MG TABLET PO SCH (12:30)
[2019-01-03] MEDS ORDERED: FUROSEMIDE 20 MG in SYRINGE 0 ML IV ONE (12:30)
[2019-01-03] MEDS ORDERED: LEVALBUTEROL HCL 1.25 MG/3 ML NEB NEB SCH (13:00)
[2019-01-03] MEDS: predniSONE 20 MG TAB PO SCH (13:23)
--- NOTE | 2019-01-03 13:54 | Pulmonary Consultation ---
Date of Consultation January 03, 2019 Assessment & Plan (1) Hypoxia: There is multifactorial secondary to chronic pulmonary disease with chronic hypoxia. In addition, patient had recent surgery and is currently 3.2 L positive Furosemide is been given for 20 mg IV Patient with increased urine output We will attempt to ambulate the patient and at least get him from bed to chair in an upright position Wean off of high flow O2 to facemask and then the nasal cannula Baseline for the patient is 3-1/2 to 4 L of supplemental O2 via nasal cannula Repeat ABGs in the morning BiPAP 10/2 as tolerated. Will attempt to use during the day so patient can acclimate. Goal is 4 hours at bedtime Continue treat with duo nebs Patient should have outpatient follow-up with pulmonary clinic May also benefit to have pulmonary rehab evaluation again. This was completed in the past by Dr. 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 Mckeon Patient is on clopidogrel for previous stent placement and CAD Ambulate as tolerated Thank you for including us in the care of this patient. We will continue to follow with you Please refer to Dr. Bustamante's addendum for further recommendations. Supervising Physician Co-Signing Physician Notes I have seen and examined the patient with Steven Hi PA-C. I agree with his note aside for any additions/exceptions noted: Patient has Very severe end-stage COPD with acute on chronic hypoxemic respiratory failure. He is seen in the room tripoding on a high flow oxy mask. His CT chest was personally reviewed by me and demonstrates severe centrilobular emphysema diffusely. His pulmonary function tests were also reviewed in allscripts which indicated very severe obstructive defect and significant air trapping that is likely contributing to his dyspnea. He does have a left lower lobe 9 mm pulmonary nodule which will need follow-up with a CT scan as an outpatient in 3 months. He does appear to have some wheezes on exam and is very clearly in a COPD exacerbation. Recommend treating him with 60 mg p.o. prednisone. This can be continued for 5 days. There is no proven efficacy of IV Solu-Medrol over prednisone. I do not think the patient is infected and likely would not benefit from antibiotics at this present time. He does have a net positive fluid balance and can continue to be diuresed carefully. I think acutely he may benefit from BiPAP, however, interestingly his blood gas does not demonstrate a chronic hypercapnia it is unclear whether he would benefit from this in the long-term. I would recommend a blood gas on room air in the morning off of BiPAP as an outpatient. I would be very careful with any sedatives given that this could potentiate a COPD exacerbation. However, I do believe that a palliative care consultation may be prudent in this patient given his very severe, essentially end-stage COPD. History of Present Illness Attending Physician: Milton Mckeon MD History of Present Illness Attending: Dr. Bustamante This is a 78-year-old male that presented for aortic aneurysm repair. He underwent bilateral femoral artery exposure with bilateral transluminal angioplasty of the external iliac artery with endovascular abdominal aortic aneurysm repair with bilateral distal extensions by Dr. Mckeon on 12/31/2018. The patient has required increased oxygen secondary to shortness of breath and hypoxia. The patient does have chronic respiratory failure with pulmonary function testing completed in 2016. FVC was 88% of predicted. Post bronchodilator change was to 75%. FEV1/FVC was 69%. VC 37. TLC 132. RV 265. RV/TLC perc entage 196. Diffusion capacity was not measured. An echocardiogramwas performed on 06/01/2015. LV ejection fraction 55-60%. Inferior andposterolateral hypokinesis. These wall motion abnormalities were present on echocardiogram in 2010.The patient has a history of coronary artery disease. In 2002, he underwent stent procedures at the [facility]. Cardiac catheterization performed on 12/26/2010 at [facility] revealed a proximal LAD stent with mild in-stent restenosis. The greatest stenosis in the LAD at that time was 30%. The left circumflex marginal had a st ent. This was the third marginal. The stent was patent. There was another stent located in the mid segment of the marginal. This stent site was also patent. The midcircumflex in the atrioventricular groove had a 30-40% stenosis. There was a 30-40% distal left circumflex stenosis. The proximal left posterior descending artery had a 30% stenosis. The coronary circulation was left dominant. The conclusion was that the patient had no significant obstructivecoronary artery disease. Of note is that the patient had undergone a stress echo on 12/19/2010. This revealed evidence of worsened wall motion abnormality in the inferolateral wall. A resting echo performed on 11/14/2010 revealed mild LVH, LV ejectionfraction 55%, left ventricular diastolic dysfunction. On that echo,no regional wall motion abnormalities were noted. Patient is noted to be volume overloaded this admission with a 3.2 L positive balance since admission. Furosemide has been given judiciously as patient has a rising creatinine. Patient is beginning to increase output of urine. CT scan is reviewed and reveals severe emphysema and no evidence of consolidation, infiltrate or other evidence of pneumonia. Procalcitonin is 0.4. This slight elevation could be contributed to acute renal failure. Patient has no fever, sweats, chills, rigors. He has no positive sputum production. He does have chronic wheeze which seems to be worsened at this time. Patient does improve with use of nebulizer. Patient denies any chest pain or tightness. Has no shoulder or back pain. No referred pain in the jaw shoulder or arms. Aside from the shortness of breath and some minimal abdominal distention, he has no acute complaints. Allergies Allergy/AdvReac Type Severity Reaction Status Date / Time No Known Allergies Allergy Verified 12/31/18 07:15 Home Medications Home Medications Medication Instructions Recorded Confirmed Type albuterol sulfate HFA 90 1 puffs INHALATION BID PRN gm 12/26/18 12/31/18 History mcg/actuation aerosol inhaler amlodipine 10 mg tablet 10 mg PO DAILY #60 tab 12/26/18 12/31/18 History cholecalciferol (vitamin D3) 3,000 3,000 units PO DAILY #30 tab 12/26/18 12/31/18 Rx unit tablet clopidogrel 75 mg tablet 75 mg PO DAILY #30 tab 12/26/18 12/31/18 History metoprolol tartrate 50 mg tablet 75 mg PO BID tab 12/26/18 12/31/18 History nitroglycerin 0.4 mg sublingual 0.4 mg SL Q5M tab 12/26/18 12/31/18 History tablet pantoprazole 40 mg tablet,delayed 40 mg PO DAILY #90 tab 12/26/18 12/31/18 History release simvastatin 40 mg tablet 40 mg PO DAILY #90 tab 12/26/18 12/31/18 History albuterol sulfate 2.5 mg INHALATION QID PRN 12/31/18 12/31/18 History Patient History Medical History AAA (abdominal aortic aneurysm) CAD (coronary artery disease) COPD (chronic obstructive pulmonary disease) Emphysema of lung Myocardial infarct, old PVD (peripheral vascular disease) Surgical History H/O angioplasty (Inactive) S/P coronary artery stent placement S/P insertion of iliac artery stent Family History Father Family history non-contributory Social History Preferred Language: Singaporean Communication Ability: Effective Chip Bin Conveyor Tender Required: No Beliefs That Will Affect Care: None marital status: Current Living Situation: Spouse current occupational status: retired Other Information That Helps Us Care for You: No Feels Safe at Home: Yes Safety Concerns: Feels Safe At This Time Smoking Status: Former smoker Do You Dip or Chew Tobacco: No ; Smoking End Date: 2013 ; Second Hand Exposure: No ; Tobacco Cessation Education Requested by Patient: No Hx Alcohol Use: No Hx Substance Use: No Review of Systems Review of Systems: All systems reviewed & are unremarkable except as noted in HPI & below Physical Exam Physical Exam: GENERAL : No acute distress EYES: No icterus, gaze conjugate NOSE: No evidence of epistaxis MOUTH: No lesions or candidiasis NECK: Supple LUNGS: End phase expiratory wheezes in the bilateral bases. Decreased air movement throughout remainder of lung zones. No appreciation of rhonchi or crackles. No paradoxical chest wall movement. HEART: Regular, rate controlled ABDOMEN: Soft, NT, distended, BS Present. No rebound tenderness or guarding. Tympanic to percussion EXTREMITIES: Bilateral LE edema, pedal pulses intact NEURO: A&OX3 Results & Data Vital Signs (Past 12 Hours) Vital Signs Temp Pulse Pulse Pulse Resp BP BP 01/03/19 11:36 113 H 34 H 146/60 H 01/03/19 11:03 79 20 01/03/19 09:49 90 22 01/03/19 07:36 37.3 C 77 22 160/67 H 01/03/19 07:04 77 20 01/03/19 06:19 77 01/03/19 05:30 93 H 22 01/03/19 03:57 82 21 01/03/19 03:39 37.4 C 85 21 160/75 H Pulse Ox 01/03/19 11:36 84 L 01/03/19 11:03 89 L 01/03/19 09:49 88 L 01/03/19 07:36 91 01/03/19 07:04 94 01/03/19 06:19 01/03/19 05:30 91 01/03/19 03:57 95 01/03/19 03:39 92 Laboratory Results 01/03/19 03:34 01/03/19 03:34 Laboratory Tests 01/03/19 11:29 POC pH 7.38 POC pCO2 40 POC pO2 59 L POC HCO3 23 POC Total CO2 24 POC Base Excess -2.0 POC ABG O2 Sat 90.0 O2 Delivery Device SimpleMask Diagnostic Findings CT chest wo con CLINICAL HISTORY: Atypical chest pain. HYPOXIA. COMPARISON STUDY: Chest x-ray dated 12/31/2018 CT DOSE: 353.28 mGy.cm TECHNIQUE: CT of the thorax was performed from the thoracic inlet to the lung bases. Images are reviewed in the axial, sagittal, and coronal planes. IV contrast was not administered for this examination. A dose lowering technique was utilized adhering to the principles of ALARA. FINDINGS: Thyroid: Imaged portions of the thyroid gland are normal in appearance. Thoracic aorta: The thoracic aorta is normal in course and caliber, noting standard 3 vessel arch anatomy. Heart: The heart is normal in size. There is trace pericardial fluid. There are coronary artery calcifications. Lungs and pleural spaces: There are small bilateral pleural effusions. There is severe pulmonary emphysema. There are dependent airspace opacity statistically atelectatic. There is lower lobe bronchial wall thickening. There is a solid 9 mm left lower lobe pulmonary nodule Mediastinum: There is no evidence of pathologic mediastinal lymphadenopathy. Lucy: There is no evidence of pathologic hilar adenopathy given the limitations of a noncontrast study. Axilla: There is no evidence of pathologic axillary lymphadenopathy. Upper abdomen: Increased density gallbladder, may represent vicarious excretion. There is right-sided nephrolithiasis. Upper pole right renal cysts are visualized. There is a stable hepatic hypodensity likely representing a cyst. Skeletal structures: There are no lytic or blastic osseous lesions. IMPRESSION: 1. Severe pulmonary emphysema 2. Small bilateral pleural effusions 3. Dependent airspace opacities likely atelectatic 4. Lower lobe bronchial wall thickening 5. Solid 9 mm left lower lobe pulmonary nodule. A 3 month follow-up CT scan or PET CT scan is recommended. Please refer to below summary of Fleischner criteria recommendations for follow- up of incidental CT nodules (John Jones, Guidelines for management of small pulmonary nodules detected on CT scans: A statement from the Fleischner Society, Radiology 237: [phone].) SOLID NODULES Solitary nodule size: <6 mm * low risk patients: no follow-up needed * high risk patients: optional CT at 12 months Solitary nodule size: 6-8 mm * low risk patients: follow-up at 6-12 months, then consider further follow-up at 18-24 months * high risk patients: initial follow-up CT at 6-12 months and then at 18-24 months if no change Solitary nodule size: >8 mm * either low or high risk patients - consider follow-up CT at 3 months, and/or CT-PET, and/or biopsy Multiple nodules size: <6 mm * low risk patients: no routine follow-up * high risk patients: optional CT at 12 months Multiple nodules size: 6-8 mm * low risk patients: follow-up at 3-6 months, then consider further follow-up at 18-24 months * high risk patients: follow-up at 3-6 months, then at 18-24 months if no change Multiple nodules size: >8 mm * low risk patients: follow-up at 3-6 months, then consider further follow-up at 18-24 months * high risk patients: follow-up at 3-6 months, then at 18-24 months if no change Note: newly detected indeterminate nodule in persons 35 years of age or older. * low risk patients: minimal or absent history of smoking and/or other known risk factors * high risk patients: history of smoking or of other known risk factors (e.g. first degree relative with lung cancer, or exposure to asbestos, radon, uranium) * if a nodule up to 8 mm is partly solid or is ground glass further follow-up is required after 24 months to exclude possible slow growing adenocarcinoma (IRIS) SUBSOLID NODULES Solitary pure ground-glass nodule * nodule size <6 mm - no CT follow-up required * nodule size >=6 mm - follow-up CT at 6-12 months, then every 2 years until 5 years Solitary part-solid nodule * nodule size <6 mm - no CT follow-up required * nodule size >=6 mm - follow-up CT at 3-6 months. If unchanged, and solid component remains <6 mm, then annual follow-up for 5 years Multiple subsolid nodules * nodule size <6 mm - follow-up CT at 3-6 months, consider further follow-up at 2 and 4 years if stable * nodule size >=6 mm - follow-up CT at 3-6 months, subsequent management based on the most suspicious nodule(s) Electronically signed by: Bruce Strickland M.D. 01/03/2019 8:31 AM XR chest 1V portable CLINICAL HISTORY: 78 years-old Male presenting with Hypoxia. TECHNIQUE: Portable upright AP view of the chest was obtained. COMPARISON: 12/31/2018. FINDINGS: Atherosclerosis of the aortic arch. Cardiac silhouette mildly enlarged. Radioluc ency of the upper lobes with heterogeneous lung parenchyma. Reticular bibasilar opacities. These are unchanged from prior. No large effusion or pneumothorax allowing for the degree of radiolucency of the upper lobes. Osseous structures normal. Upper abdomen normal. IMPRESSION: 1. Severe emphysema. No focal infiltrate to suggest pneumonia. 2. Bibasilar reticular opacities may relate to less emphysematous lung parenchyma, atelectasis, aspiration, or developing fibrosis in the setting of smoking related lung injury. These findings are similar to prior. Electronically signed by: Wei Lundberg M.D. 01/02/2019 3:58 PM NUCLEAR PULMONARY PERFUSION SCAN CLINICAL HISTORY: Hypoxia. COMPARISON STUDY: Chest x-ray dated 01/02/2019. TECHNIQUE: Perfusion scanning of both lungs were obtained following the IV administration of 6.3 mCi of technetium 99m MAA. Ventilatory scanning could not be performed. The perfusion images were acquired in the anterior, posterior, and oblique projections. FINDINGS: A chest x-ray performed 01/02/2019 shows cardiomegaly and emphysema. Airspace consolidation is present at the left lung base. No large pleural effusion is identified. The perfusion of both lungs is markedly heterogeneous. There is diminished perfusion of the right lung as compared to the left. IMPRESSION: 1. The ventilatory scan could not be performed. 2. The perfusion scan is markedly heterogeneous, likely due to advanced chronic lung disease. This examination is of limited diagnostic utility. 3. There is globally diminished perfusion of the right lung as compared to the left. Central pulmonary embolus would be impossible to exclude. If there strong clinical concern for pulmonary embolic disease a CT angiogram of the chest should be performed. 4. Airspace consolidation is seen at the left lung base on today's chest x-ray. Correlate clinically for evidence of an infectious/inflammatory pneumonitis. Electronically signed by: Steven Zimmerman M.D. 01/02/2019 8:55 PM PG Care Time/CCT Total # of Minutes Spent Total Time Spent with Patient: Total time spent is greater than 50% in coordination of care (as documented) at patient's floor/unit and/or counseling patient:60
[2019-01-03] MEDS ORDERED: PIPERACILLIN/TAZOBACTAM 4.5 GM in DEXTROSE 5% 100 ML IV SCH (14:00)
[2019-01-03] MEDS: ALBUTEROL HFA 8 GM INHALER INH PRN (20:18)
[2019-01-04] MEDS: ALBUTEROL 0.083% NEBU SOLN 3 ML VIAL INH PRN (02:04)
[2019-01-04 06:14] LABS: Hematocrit (blood only) 28.3 % (42-52); Hemoglobin 9.5 g/dL (14.0-18.0); Mean Corpuscular Hemoglobin 29.5 pg (25-34); Mean Corpuscular Hgb Conc 33.6 g/dL (32-36); Mean Corpuscular Volume 87.9 fL (80-100); Mean Platelet Volume 9.5 fL (7.4-10.4); Nucleated RBC # (auto) 0.02 K/uL (0-0); Nucleated RBC % (auto) 0.2 %; Platelet Count 211 K/uL (130-400); RDW Coefficient of Variation 14.6 % (11.5-14.5); RDW Standard Deviation 47.2 fL (36.4-46.3); Red Blood Count 3.22 M/uL (4.7-6.1); White Blood Count 9.72 K/uL (4.8-10.8)
[2019-01-04 06:47] LABS: BUN Creatinine Ratio 24.8 (10-20); Calcium 8.7 mg/dl (8.5-10.1); Creatinine Clr Calc Pharmacy 23.2 ml/min; Est GFR (African American) 25.4; Est GFR (Non-African American) 21.9; Potassium 4.7 mmol/L (3.5-5.1)
[2019-01-04] MEDS: ALBUT/IPRATROP 3MG/0.5MG NEB 3 ML VIAL NEB SCH ×4 (06:59→19:04)
[2019-01-04] MEDS: POLYETHYLENE (MIRALAX) 17 GM PACK PO SCH (07:34)
[2019-01-04] MEDS: METOPROLOL TARTRATE 50 MG TAB PO SCH (07:34)
[2019-01-04] MEDS: predniSONE 20 MG TAB PO SCH (07:35)
[2019-01-04] MEDS: SIMVASTATIN 40 MG TAB PO SCH (07:36)
[2019-01-04] MEDS: CHOLECALCIFEROL 1,000 UNITS TAB PO SCH (07:36)
[2019-01-04] MEDS: CLOPIDOGREL BISULFATE 75 MG TAB PO SCH (07:36)
[2019-01-04] MEDS: PANTOprazole 40 MG TAB PO SCH (07:36)
[2019-01-04] MEDS: AMLODIPINE BESYLATE 5 MG TAB PO SCH (07:36)
[2019-01-04] MEDS: OXYCODONE/ACETAMINOPHEN 5mg/325mg TAB PO PRN (07:42)
[2019-01-04] MEDS: DOCUSATE SODIUM 100 MG CAP PO SCH ×2 (07:46→21:35)
[2019-01-04] MEDS ORDERED: ALUMINUM/MAGNESIUM SUSP 30 ML UDC PO PRN (08:55)
[2019-01-04] MEDS ORDERED: METOPROLOL TARTRATE 25 MG TAB PO ONE (09:15)
--- NOTE | 2019-01-04 09:44 | Palliative Care Consultation ---
Date of Consultation January 04, 2019 Assessment & Plan (1) Goals of care, counseling/discussion: This is a 78 year old male who presented to the [facility] on December 31 with symptoms of a ruptured abdominal aortic aneurysm. He was evaluated by Dr. Mckeon and is currently POD #4 s/p EVAR with bilateral groin cutdown. Additional PMH includes: chronic respiratory failure, CKD Stage 3, PAD, HLD, Prostate CA, HTN, and CAD. This patient tolerated the procedure well, but unfortunately, became increasingly hypoxic. At baseline, he uses 4LNC of supplemental O2 at home. During the hypoxia, he will desaturate to 80-82% on 10L high flow oxygen, and also reports SOB at rest. He was placed on bipap overnight and has not been tolerating this. The hospitalist team has ruled out infectious and aspiration pneumonia as his CXR is negative. He has been evaluated by pulmonary and is being treated for an acute on chronic exacerbation with steroids and Duonebs, but is not showing overall improvement. An ABG obtained yesterday, suggests that he has compensated, but his functional status remains poor. Per Pulmonary, remains in end stage disease with poor prognosis. Additionally, his renal function is worsening with his most recent creatinine of 2.23, up from his baseline of 1.6. Palliative Care was consulted to discuss goals of care. -I met with the patient in room 206. No family was present during my initial encounter. -The patient was sitting in his bedside chair, in tripod position and labored with breathing. He did not tolerate the Bipap overnight nor the Hi-flow, and is now on his home regimen of 4LNC. -The patient is very pleasant and described how him and his , Isi have been for 56 years. He states that he enjoys watching TV. -He stated that they live in a bi-level home and have a mechanical stair lift that they each take turns using to get up the 6 stairs to the main level of their home which has two bedrooms and a full bath. -He stated, very winded, that he does dress himself and him and his help each other make meals, do the dishes, clean, etc. They have one daughter, Rosamaria Wolff, who lives locally to them in [place] and a son, Nathaniel, who lives in [place]. -He was very receptive to palliative Care. We discussed code status and he said: "well, I had a ventilator for my surgery and they were able to discontinue it, so why couldn't they do that again?" -We discussed how the surgery was not related to his breathing and went into mo re details regarding a ventilator. -We agreed to talk in detail with his , Isi, when she arrived. I phoned Isi and spoke with her and Nathaniel (who is visiting his Mom and Dad) and they will be in this afternoon to discuss goals of care. Update 1505: -Revisited the room where patient, Isi, son Nathaniel, daughter Rosamaria, and granddaughter Mai were all at the bedside. -We discussed the patients current hospitalization and tolerating of his surgical AAA repair. The patients son and daughter brought up their concerns about his breathing which led us to discuss his quite end-stage COPD. Extensive discussion was held regarding his shortness of breath, and worsening hypoxia at home with increased concerns about knowing what his wishes are. -We discussed code status at length and the patient verbalized his wishes that if he would decline medically that he would NOT want to receive CPR and would NOT want to be intubated if he would not be able to live in a meaningful way. Patient changed to DNR.DNI and all family in agreement. -The patient did state that he did not like the Hi-flow and did not like the Bipap. He expressed understanding how they both work and allow his lungs to exchange the ''good oxygen with the bad", but expressed that he "will use it here and there while I am here at the hospital, but I will not use this at home, even if I need it." He understands that eventually the supplemental nasal prong O2 will not be effective with his breathing and he understands that eventually he would pass away with out an increased supply of O2. -Earlier in the day I did discuss the patients worsening creatinine level, currently 2.23, up from 1.6. Per Nephrology, this could be ATN related to the contrast he received, however, ultimately due to the complexity of this patients illness would not entertain the idea of dialysis for him jail if indicated. There is no apparent edema on exam. Would recommend keeping the andrade catheter in place not only from a breathing standpoint, but also from an I/O accuracy standpoint. -I did ask the patient if his kidney function worsened, if he would be interested in hemodialysis if it were an option and he interrupted to say " we are not going to go through that" and his agreed that he would not want to start dialysis, even if indicated. -We discussed at length, Hospice and its benefits which the entire family unanimously was in favor of, and very interested in the equipment that Hospice could provide, case management aware and will provide a hospice list and private care list tomorrow morning, which I expressed could be helpful in providing supplemental care that the patient's daughter and Hospice could not provide. -Should the patient decide they would prefer Home health, I would encourage an agency that they could bridge to Hospice. It appeared clear from the family and patient that they would like to return home with hospice services. -With the end stage of this gentleman's illness, I believe he would qualify for Hospice services and at this time he would not be interested in any aggressive measures for management of his disease, including Bipap. -We did complete a POLST form indicating DNR.DNI, Comfort measures only, limited antibiotics and no artificial nutrition/hydration. The patient even stated "If I break my hip, I would rather be kept comfortable". I reiterated that Hospice could be revoked if they would decide for aggressive treatment. -From a symptom management standpoint, the patient appeared in no apparent distress while he was lying in his bed; however, during my visit earlier today, was in tripod position with pursed lip breathing and typically any activity causes a desaturation and distress. Would consider adding Roxanol 5mg Q6 PRN for air hunger/pain. I would want to assess him tomorrow to confirm if he was experiencing distress and discuss further with family/patient. -Case management to follow and assist with any additional planning. -Palliative Care will assist with any additional decision making or symptom management needs should they arise. -PPS: 30% (2) Acute and chronic respiratory failure with hypoxia: (3) CKD (chronic kidney disease) stage 3, GFR 30-59 ml/min: (4) Pulmonary nodule: (5) Ruptured abdominal aortic aneurysm (AAA): History of Present Illness Reason for Consultation: Goals of Care Requesting Physician: Evelyn Del Valle PA-C Attending Physician: Milton Mckeon MD History of Present Illness This is a 78 year old male who presented to the [facility] on December 31 with symptoms of a ruptured abdominal aortic aneurysm. He was evaluated by Dr. Mckeon and is currently POD #4 s/p EVAR with bilateral groin cutdown. Additional PMH includes: chronic respiratory failure, CKD Stage 3, PAD, HLD, Prostate CA, HTN, and CAD. This patient tolerated the procedure well, but unfortunately, became increasingly hypoxic. At baseline, he uses 4LNC of supplemental O2 at home. During the hypoxia, he will desaturate to 80-82% on 10L high flow oxygen, and also reports SOB at rest. He was placed on bipap overnight and has not been tolerating this. The hospitalist team has ruled out infectious and aspiration pneumonia as his CXR is negative. He has been evaluated by pulmonary and is being treated for an acute on chronic exacerbation with steroids and Duonebs, but is not showing overall improvement. An ABG obtained yesterday, suggests that he has compensated, but his functional status remains poor. Per Pulmonary, remains in end stage disease with poor prognosis. Additionally, his renal function is worsening with his most recent creatinine of 2.23, up from his baseline of 1.6. Palliative Care was consulted to discuss goals of care. Please see A/P for further details. Thank you for including the palliative care team with this patient. We will continue to support and assist with decision making. Allergies Allergy/AdvReac Type Severity Reaction Status Date / Time No Known Allergies Allergy Verified 12/31/18 07:15 Home Medications Home Medications Medication Instructions Recorded Confirmed Type albuterol sulfate HFA 90 1 puffs INHALATION BID PRN gm 12/26/18 12/31/18 History mcg/actuation aerosol inhaler amlodipine 10 mg tablet 10 mg PO DAILY #60 tab 12/26/18 12/31/18 History cholecalciferol (vitamin D3) 3,000 3,000 units PO DAILY #30 tab 12/26/18 12/31/18 Rx unit tablet clopidogrel 75 mg tablet 75 mg PO DAILY #30 tab 12/26/18 12/31/18 History metoprolol tartrate 50 mg tablet 75 mg PO BID tab 12/26/18 12/31/18 History nitroglycerin 0.4 mg sublingual 0.4 mg SL Q5M tab 12/26/18 12/31/18 History tablet pantoprazole 40 mg tablet,delayed 40 mg PO DAILY #90 tab 12/26/18 12/31/18 History release simvastatin 40 mg tablet 40 mg PO DAILY #90 tab 12/26/18 12/31/18 History albuterol sulfate 2.5 mg INHALATION QID PRN 12/31/18 12/31/18 History Patient History Medical History AAA (abdominal aortic aneurysm) CAD (coronary artery disease) COPD (chronic obstructive pulmonary disease) Emphysema of lung Myocardial infarct, old PVD (peripheral vascular disease) Surgical History H/O angioplasty (Inactive) S/P coronary artery stent placement S/P insertion of iliac artery stent Family History Father Family history non-contributory Social History Preferred Language: [place] Communication Ability: Effective Mft Required: No Beliefs That Will Affect Care: None marital status: Current Living Situation: Spouse current occupational status: retired Other Information That Helps Us Care for You: No Feels Safe at Home: Yes Safety Concerns: Feels Safe At This Time Smoking Status: Former smoker Do You Dip or Chew Tobacco: No ; Smoking End Date: 2013 ; Second Hand Exposure: No ; Tobacco Cessation Education Requested by Patient: No Hx Alcohol Use: No Hx Substance Use: No Review of Systems Review of Systems: All systems reviewed & are unremarkable except as noted in HPI & below Patient reports SOB with movement Patient reports surgical incisional pain Physical Exam Constitutional: well developed Neck: trachea midline, no thyromegaly Respiratory: + uses accessory muscles, + pursed lip breathing (when sitting in chair) and symmetric chest movement Auscultation: + diminished lung sounds and + crackles (expiratory ) Cardiovascular: RRR, no murmur, no edema Gastrointestinal (Abdomen): normal bowel sounds, soft, nontender, no hepatosplenomegaly Skin: + incision bilateral groin clean, dry intact with will. ecchymotic. Psychiatric: A+Ox3, euthymic affect Insight: good insight Judgement: good judgement Genitourinary: andrade catheter in place. Lymphatic: no cervical or axillary lymphadenopathy Results & Data Vital Signs (Past 12 Hours) Vital Signs Temp Pulse Pulse Pulse Resp BP BP 01/04/19 07:29 36.4 C L 100 H 26 H 156/71 H 01/04/19 07:01 86 20 01/04/19 06:38 01/04/19 06:19 92 H 01/04/19 03:51 37.1 C 88 22 162/66 H 01/04/19 02:04 90 22 01/04/19 00:00 74 01/03/19 23:39 36.7 C 80 19 156/70 H Pulse Ox 01/04/19 07:29 91 01/04/19 07:01 91 01/04/19 06:38 90 01/04/19 06:19 01/04/19 03:51 95 01/04/19 02:04 97 01/04/19 00:00 01/03/19 23:39 90 PG Care Time/CCT Total # of Minutes Spent Total Time Spent with Patient: Total time spent is greater than 50% in coordination of care (as documented) at patient's floor/unit and/or counseling patient: 100 Prolonged Care Time Prolonged Care Time: Yes Total Prolonged Care Time: 30 Time Spent Midlevel Total time spent 100 minutes with > 50% of that time spent assessing the pat ient, discussing goals of care, completing a POLST form with the patient and family. Critical Care Time Prolonged Care Time Prolonged Care Time: Yes Total Prolonged Care Time: 30 100
--- NOTE | 2019-01-04 10:59 | Hospitalist Progress Note ---
Date of Service January 04, 2019 Assessment & Plan (1) Ruptured abdominal aortic aneurysm (AAA): - S/p EVAR with BL groin cutdown on 12/31/18, POD#4. - Primary management per vascular surgery. - KUB showed adequate placement of aortobiliac stent graft. - Resumed Plavix post op; V/Q scan did not rule out PE, was a very limited study - holding Heparin ppx in setting of ?groin hematoma. (2) Acute and chronic respiratory failure with hypoxia: - On 4L via NC at home in setting of COPD; has been requiring oxymask, up to 7L with minimal movement. - Possible PE in post op setting -- V/Q scan was a very limited study, CTA contraindicated due to ARF. Doppler of bilat LE negative. - Treatment for COPD with PO Prednisone; does not require abx - procalcitonin neg with no evidence of PNA. Did receive Zosyn x 1 dose. - Consider pulm edema -- chest CT with small bilat pleural effusions & ~3 kg weight gain (some weights are not accurate, measured via bedscale). Received Lasix IV on 01/02 and 01/03. - Consulted pulmonology, appreciate input. Will need to establish care as a new patient in the clinic. - Wean oxygen as tolerated - has not had improvement in resp issues; cannot tolerate BiPAP, continue to attempt qhs for goal of 4 hours. - Consulted palliative to discuss goals of care, appreciate input. - Flutter valve QID and IS q1hr. (3) COPD with emphysema: - Acute exacerbation in setting of hypoxia and per lung exam findings. - Currently requiring Oxymask as noted above. - Continue Prednisone 60 mg PO daily per pulmonary recs. - Received Zosyn x 1 dose, d/c further abx - no evidence of PNA. - Duonebs QID scheduled with Albuterol prn. - Will need to establish care with pulmonary in outpatient clinic; will also benefit from additional agent at home, consider Symbicort. (4) Acute renal failure: - Creatinine remains elevated, was 2.6 this morning; baseline ~1.6-1.8. Likely related to ATN. - Had minimal urine output, now improved; continue andrade for accurate I/O's. - Renal US was negative for obstruction. - U/a +hyaline casts, negative for infection. - Received Lasix IV on 01/02 and 01/03, hold further doses. - Monitor renal function daily. - Hold nephrotoxic agents. - Nephrology following, appreciate input. Palliative consulted to discuss goals of care. (5) Oliguria: - Now resolved; continue andrade for accurate I/Os. (6) CKD (chronic kidney disease) stage 3, GFR 30-59 ml/min: - Renally dose all meds. - ARF as noted above. (7) Ileus: - Ongoing abd bloating and discomfort; KUB showed ileus on 01/02. - Tolerating CLD but has very poor appetite; advance diet if bowel function improving. - Colace 100 mg BID with Miralax daily scheduled. (8) Groin hematoma: - Complex fluid collection in left groin noted on doppler of LE -- likely related to hematoma. - Hold Heparin ppx; continue Plavix and monitor. (9) CAD (coronary artery disease): - S/p stent placement at [facility] in 2002. Also had an NSTEMI in 2016, s/p cardiac cath followed by medical management. - Continue Plavix, Simvastatin, Metoprolol as prescribed. - EKG showed ST depression in the anterolateral leads; Trop level x 2 were negative. - C/o acute chest tightness today -- likely related to GERD; continue PPI and added Maalox prn. (10) HTN (hypertension): - Continue Amlodipine 10 mg daily as prescribed. - BP has been elevated -- will increase Metoprolol to 100 mg BID (also has tachycardia with exertion); monitor for worsening bronchospasms in setting of chronic lung disease. (11) HLD (hyperlipidemia): - Continue statin as prescribed. (12) PAD (peripheral artery disease): - S/p bilat iliac artery stents, completed at [facility]. - Continue statin and plavix as prescribed. (13) Pulmonary nodule: - CT showed solid 9 mm LLL nodule; high risk patient in setting of tobacco abuse. - Pulmonology consulted, appreciate input. (14) GERD (gastroesophageal reflux disease): - PPI daily. - Added Maalox prn for acute chest tightness. (15) DVT prophylaxis: - SCDs; holding pharmacologic ppx in setting of groin hematoma. Dispo: Continue treatment for COPD and evaluate for improvement in hypoxia. Nephro also following for acute renal failure. Palliative consulted to discuss goals of care. Supervising Physician Co-Signing Physician Notes Had discussion with pulmonary, Patient has advanced COPD. Initially, concern was patient may have hospital acquired infection, but procalcitonin was negative. Patient also did not have any sputum production. Imaging also does not show any fluid overload. Palliative care is consulted to help with decision making with the family as patient appears to be end stage. I reviewed above note. I had a face encounter with the patient and performed a history and physical examination. I discussed plan with the patient. Subjective Pt. had chest discomfort this morning -- likely related to GERD, no indication for cardiac work up. He is SOB with very minimal exertion -- O2 sat decreases to 80's after sitting up in bed requiring increase in O2 to 6-7L. He is stable on 4L at rest with no movement. HR also increased with very minimal exertion, 110's on monitor. Will increase Metoprolol to 100 mg BID. Has good urine output but renal function is not improving. Will consult palliative care for evaluation. Review of Systems Review of Systems: All systems reviewed & are unremarkable except as noted in HPI & below Constitutional: + fatigue, + weakness and + anorexia; no fever and no chills Respiratory: + dyspnea, + dyspnea on exertion and + wheezing; no cough Cardiovascular: + chest pain; no palpitations, no lightheadedness and no edema Gastrointestinal: + constipation; no abdominal pain and no nausea Genitourinary: no difficulty urinating and no decreased urination Musculoskeletal: no back pain, no joint pain and no swelling Integumentary: no non-healing lesions Physical Exam Physical Exam: General: Chronically ill appearing male, in mild distress 2/2 SOB. HEENT: NC/AT; PERRLA with EOMI; [place] conjunctiva, MMM. No erythema of posterior pharynx Neck: Supple and nontender Cardiac: Tachycardic. Lungs: O2 via oxymask, 7L; coarse breath sounds with scattered wheezing. Abdomen: Mod distention; Bowel normoactive X 4; Firm, non tender to light palpation. Extremities: Warm. No edema present Neuro: No focal weakness Skin: No rash Results & Data Vital Signs (Past 12 Hours) Vital Signs Temp Pulse Pulse Pulse Resp BP BP 01/04/19 10:50 72 16 01/04/19 09:51 90 143/65 H 01/04/19 07:29 36.4 C L 100 H 26 H 156/71 H 01/04/19 07:01 86 20 01/04/19 06:38 01/04/19 06:19 92 H 01/04/19 03:51 37.1 C 88 22 162/66 H 01/04/19 02:04 90 22 01/04/19 00:00 74 01/03/19 23:39 36.7 C 80 19 156/70 H Pulse Ox 01/04/19 10:50 90 01/04/19 09:51 91 01/04/19 07:29 91 01/04/19 07:01 91 01/04/19 06:38 90 01/04/19 06:19 01/04/19 03:51 95 01/04/19 02:04 97 01/04/19 00:00 01/03/19 23:39 90 Laboratory Results 01/04/19 01/04/19 01/03/19 Range/Units 05:52 05:52 11:29 WBC 9.72 (4.8-10.8) K/uL RBC 3.22 L (4.7-6.1) M/uL Hgb 9.5 L (14.0-18.0) g/dL Hct 28.3 L (42-52) % MCV 87.9 (80-100) fL MCH 29.5 (25-34) pg MCHC 33.6 (32-36) g/dL RDW Std Deviation 47.2 H (36.4-46.3) fL RDW Coeff of Tamara 14.6 H (11.5-14.5) % Plt Count 211 (130-400) K/uL MPV 9.5 (7.4-10.4) fL Absolute Nucleated RBC 0.02 H (0-0) K/uL Nucleated RBC % (auto) 0.2 % Sample Site L Radial POC pH 7.38 (7.35-7.45) POC pCO2 40 (35-46) mmHg POC pO2 59 L (80-95) mmHg POC HCO3 23 (19-24) isael/L POC Total CO2 24 (24-31) mEq/l POC Base Excess -2.0 (-9-1.8) isael/L POC ABG O2 Sat 90.0 (90-95) % Иван Test Pass O2 Delivery Device SimpleMask Sodium 133 L (136-145) mmol/L Potassium 4.7 (3.5-5.1) mmol/L Chloride 100 (98-107) mmol/L Carbon Dioxide 23 (21-32) mmol/L Anion Gap 10.0 (3-11) BUN 66 H (7-18) mg/dl Creatinine 2.67 H (0.6-1.4) mg/dl Est Cr Clr Drug Dosing 23.2 ml/min Est GFR ( Amer) 25.4 Est GFR (Non-Af Amer) 21.9 BUN/Creatinine Ratio 24.8 H (10-20) Glucose 101 H (70-99) mg/dl Calcium 8.7 (8.5-10.1) mg/dl PG Care Time/CCT Total # of Minutes Spent Total Time Spent with Patient: Total time spent is greater than 50% in coordination of care (as documented) at patient's floor/unit and/or counseling patient:
--- NOTE | 2019-01-04 11:07 | Nephrology Progress Note ---
Date of Service January 04, 2019 Assessment & Plan (1) Acute kidney injury: -- Endovascular repair of AAA 12/31/18 -- Hemodynamic MIRIAM consistent with ATN -- creatinine with slight rise over the past 24 hours -- Nonoliguric with improvement in urine output, maintaining a slightly negative fluid balance this morning without diuretics -- maintain Damico to gravity -- no need for additional diuretics at this time -- repeat metabolic profile tomorrow a.m. 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 Valladares was seen and evaluated in his hospital room this morning. His breathing is labored. He states he is feeling somewhat better. He denies any fevers or chills. Damico continues to drain clear yellow urine. He does not have any edema. He denies chest pains or palpitations. He denies any lightheadedness or dizziness. Oral intake remains poor. He denies significant pain. Patient was seen following a discussion with palliative care this morning. I reviewed the overall plan of care with the palliative care team and the primary service. Review of Systems Review of Systems: All systems reviewed & are unremarkable except as noted in HPI & below Physical Exam Constitutional: well developed; no acute distress Eyes: no scleral abnormality and no corneal abnormality ENMT: Ears: no hearing impairment Mouth: + oral mucosal abnormality Neck: normal visual inspection and trachea midline Respiratory: + labored breathing Auscultation: + diminished lung sounds and + rales Cardiovascular: Rate/Rhythm: regular rate Heart Sounds: normal S1, normal S2 and + murmur Musculoskeletal: Extremities: no cyanosis and no clubbing Skin: normal turgor; no lesions Neurologic: Motor/Sensory: no tremor and no asterixis Psychiatric: Orientation: alert and oriented x 3 Results & Data Vital Signs (Past 12 Hours) Vital Signs Temp Pulse Pulse Pulse Resp BP BP 01/04/19 10:50 72 16 01/04/19 09:51 90 143/65 H 01/04/19 07:29 36.4 C L 100 H 26 H 156/71 H 01/04/19 07:01 86 20 01/04/19 06:38 01/04/19 06:19 92 H 01/04/19 03:51 37.1 C 88 22 162/66 H 01/04/19 02:04 90 22 01/04/19 00:00 74 01/03/19 23:39 36.7 C 80 19 156/70 H Pulse Ox 01/04/19 10:50 90 01/04/19 09:51 91 01/04/19 07:29 91 01/04/19 07:01 91 01/04/19 06:38 90 01/04/19 06:19 01/04/19 03:51 95 01/04/19 02:04 97 01/04/19 00:00 01/03/19 23:39 90 Laboratory Results Laboratory Results - last 24 hr 01/03/19 01/04/19 01/04/19 11:29 05:52 05:52 WBC 9.72 RBC 3.22 L Hgb 9.5 L Hct 28.3 L MCV 87.9 MCH 29.5 MCHC 33.6 RDW Std Deviation 47.2 H RDW Coeff of Tamara 14.6 H Plt Count 211 MPV 9.5 Absolute Nucleated RBC 0.02 H Nucleated RBC % (auto) 0.2 Sample Site L Radial POC pH 7.38 POC pCO2 40 POC pO2 59 L POC HCO3 23 POC Total CO2 24 POC Base Excess -2.0 POC ABG O2 Sat 90.0 Иван Test Pass O2 Delivery Device SimpleMask Sodium 133 L Potassium 4.7 Chloride 100 Carbon Dioxide 23 Anion Gap 10.0 BUN 66 H Creatinine 2.67 H Est Cr Clr Drug Dosing 23.2 Est GFR ( Amer) 25.4 Est GFR (Non-Af Amer) 21.9 BUN/Creatinine Ratio 24.8 H Glucose 101 H Calcium 8.7 PG Care Time/CCT Total # of Minutes Spent Total Time Spent with Patient: Total time spent is greater than 50% in coordination of care (as documented) at patient's floor/unit and/or counseling patient:
[2019-01-04] MEDS ORDERED: SOD PHOSPHATE/SOD BIPHOSPHATE ENEMA 132 ML BTL PR STA (13:33)
[2019-01-04] MEDS ORDERED: OXYCODONE/ACETAMINOPHEN 5mg/325mg TAB PO PRN (13:38)
--- NOTE | 2019-01-04 13:52 | Surgery Progress Note ---
Date of Service January 04, 2019 Assessment & Plan (1) Ruptured abdominal aortic aneurysm (AAA): Patient is postop endovascular repair of abdominal aortic aneurysm. His repair of his symptomatic aneurysm. He is doing well from repair. Incisions are healing nicely in both groins with good distal flow. (2) Acute renal failure: His creatinine is mildly increased suggest however he is still making urine. The renal insufficiency is most likely secondary to contrast-induced nephropathy from his endovascular repair. Hopefully his creatinine will start to improve from his contrast-induced nephropathy. (3) Hypoxia: Patient is now on 4 L nasal cannula. At rest his O2 sats are 92. Hopefully this will improve as we take fluid off from his surgical procedure. (4) Ileus: He is having bowel sounds and passing gas. Most likely this is not a true ileus but rather extreme constipation. Will give a fleets enema to see if that helps. Subjective Patient is awake and alert. He claims to feel much better than he did earlier. His only complaint this time is his bloating and constipation. Physical Exam Physical Exam: Patient is awake and alert. He is resting comfortably in bed. Is not complaining of any pain. He actually denies any shortness of breath at this point. He still claims he has not had a bowel movement. His breath sounds are distant. His abdominal exam shows a distended abdomen but no pain or tenderness or peritoneal signs. His incisions are healing well. He has good distal flow in both lower extremities. Constitutional: WD/WN, vitals as above Results & Data Vital Signs (Past 12 Hours) Vital Signs Temp Pulse Pulse Pulse Resp BP BP 01/04/19 11:18 01/04/19 11:05 84 19 136/59 L 01/04/19 10:50 72 16 01/04/19 09:51 90 143/65 H 01/04/19 07:29 36.4 C L 100 H 26 H 156/71 H 01/04/19 07:01 86 20 01/04/19 06:38 01/04/19 06:19 92 H 01/04/19 03:51 37.1 C 88 22 162/66 H 01/04/19 02:04 90 22 Pulse Ox Pulse Ox Pulse Ox Pulse Ox 01/04/19 11:18 92 90 80 L 01/04/19 11:05 90 01/04/19 10:50 90 01/04/19 09:51 91 01/04/19 07:29 91 01/04/19 07:01 91 01/04/19 06:38 90 01/04/19 06:19 01/04/19 03:51 95 01/04/19 02:04 97
[2019-01-04] MEDS: METOPROLOL TARTRATE 100 MG TAB PO SCH (21:34)
[2019-01-05] MEDS: ALBUTEROL 0.083% NEBU SOLN 3 ML VIAL INH PRN ×2 (00:15→04:45)
[2019-01-05] MEDS: LORazepam 0.5 MG TAB PO PRN ×2 (00:41→20:32)
[2019-01-05] MEDS ORDERED: SOD PHOSPHATE/SOD BIPHOSPHATE ENEMA 132 ML BTL PR PRN (05:39)
[2019-01-05 06:30] LABS: Hematocrit (blood only) 27.6 % (42-52); Hemoglobin 9.4 g/dL (14.0-18.0); Mean Corpuscular Hemoglobin 29.8 pg (25-34); Mean Corpuscular Hgb Conc 34.1 g/dL (32-36); Mean Corpuscular Volume 87.6 fL (80-100); Mean Platelet Volume 9.2 fL (7.4-10.4); Nucleated RBC # (auto) 0.04 K/uL (0-0); Nucleated RBC % (auto) 0.4 %; Platelet Count 251 K/uL (130-400); RDW Coefficient of Variation 14.8 % (11.5-14.5); RDW Standard Deviation 46.9 fL (36.4-46.3); Red Blood Count 3.15 M/uL (4.7-6.1); White Blood Count 10.19 K/uL (4.8-10.8)
--- NOTE | 2019-01-05 06:42 | Progress Note ---
Date of Service January 05, 2019 Supervising Physician Co-Signing Physician Notes Subjective S: called to bedside due to concern for low stool output, increasing distention in the abdomen, and pain in the abdomen, and worsening SOB. brief review of records shows pt is here due to AAA management. possible ileus on KUB from days prior. O: tachycardia noted on telemetry. hypoxia - at his baseline O2 requirement. moderate tachypnea. GEN: pt is in no acute distress. nasal cannula in place ABDOMEN: no guarding. + distended on my exam. hypoactive bowel sounds noted. A/P: abdominal pain - mild/moderate abdominal distention - ordered upright KUB to eval ileus/pneumoperitoneum constipation - PRN enemas Hina Cadena MD PGY3 FMR Results & Data Vital Signs (Past 12 Hours) Vital Signs Temp Pulse Pulse Resp BP Pulse Ox 01/05/19 04:45 111 H 26 H 90 01/05/19 03:33 36.8 C 87 21 157/75 H 96 01/05/19 00:15 101 H 26 H 88 L 01/05/19 00:00 82 01/04/19 23:21 37.1 C 89 23 154/69 H 90 01/04/19 19:05 83 26 H 92 01/04/19 18:58 36.4 C L 88 19 166/66 H 92
[2019-01-05 07:03] LABS: Creatinine Clr Calc Pharmacy 26.9 ml/min; Est GFR (African American) 30.4; Est GFR (Non-African American) 26.2; Potassium 4.2 mmol/L (3.5-5.1)
[2019-01-05] MEDS: ALBUT/IPRATROP 3MG/0.5MG NEB 3 ML VIAL NEB SCH ×4 (07:07→19:15)
--- NOTE | 2019-01-05 07:37 | XRay Report ---
XR KUB/Abdomen 1 view CLINICAL HISTORY: 78 years-old Male presenting with concern for ileus. TECHNIQUE: Single supine view of the abdomen was obtained. COMPARISON: 01/02/2019. FINDINGS: Gaseous distention of large and small bowel as on prior exam. This has not improved. No gross pneumop eritoneum. Redemonstration of the aortobiiliac stent graft. Evaluation for calcifications in the abdomen extreme ly limited. Degenerative changes of the spine. Lung bases clear. IMPRESSION: 1. No improvement in the diffuse gaseous distended large and small bowel compatible with ileus. Electronically signed by: Wei Lundberg M.D. 01/05/2019 7:36 AM
[2019-01-05] MEDS ORDERED: POLYETHYLENE (MIRALAX) 17 GM PACK PO SCH (09:00)
[2019-01-05] MEDS: ALBUTEROL HFA 8 GM INHALER INH PRN (09:02)
[2019-01-05] MEDS: METOPROLOL TARTRATE 100 MG TAB PO SCH ×2 (09:06→20:24)
[2019-01-05] MEDS: DOCUSATE SODIUM 100 MG CAP PO SCH ×2 (09:06→20:24)
[2019-01-05] MEDS: PANTOprazole 40 MG TAB PO SCH (09:07)
[2019-01-05] MEDS: CLOPIDOGREL BISULFATE 75 MG TAB PO SCH (09:07)
[2019-01-05] MEDS: AMLODIPINE BESYLATE 5 MG TAB PO SCH (09:07)
[2019-01-05] MEDS: predniSONE 20 MG TAB PO SCH (09:08)
[2019-01-05] MEDS: SIMVASTATIN 40 MG TAB PO SCH (09:08)
[2019-01-05] MEDS: CHOLECALCIFEROL 1,000 UNITS TAB PO SCH (09:09)
--- NOTE | 2019-01-05 11:32 | Pulmonology Progress Note ---
Date of Service January 05, 2019 Assessment & Plan (1) Hypoxia: As noted previously, the patient has very severe COPD and chronic hypoxemic respiratory failure. I think his acute issues are likely related to perioperative pulmonary complications. The patient certainly had a procedure that was needed and given his underlying very severe COPD he is now having some trouble recovering. I would complete a course of 5 days of steroids as mentioned previously. Continue duo nebs as needed. It appears that he had a discussion with palliative care along with his family and the goals are to transition towards hospice once he is discharged. I think this is completely appropriate. He does appear to be tachypneic and in mild distress currently. Some of this is likely related to constipation and also related to his underlying COPD exacerbation. Given that the focus now is on comfort, I would recommend up titrating his opiates for air hunger. Obviously the caveat being that he is currently constipated. It appears that the primary team is giving him enemas on an as-needed basis. Recommend considering adding lactulose. At this time pulmonary will sign off. Please call us with any questions. (2) COPD with emphysema: Patient with end-stage COPD as listed above Continue with DuoNeb and albuterol treatments We will add prednisone 60 mg daily x5 days Outpatient follow-up Consider pulmonary rehab referral Maintain SaO2 between 88 and 92% Emphysema type: centrilobular Qualified Code(s): J43.2 - Centrilobular emphysema (3) DVT prophylaxis: Chemical prophylaxis per Dr. Mckeon Patient is on clopidogrel for previous stent placement and CAD Ambulate as tolerated Thank you for including us in the care of this patient. We will continue to follow with you Please refer to Dr. Bustamante's addendum for further recommendations. (4) Acute on chronic respiratory failure with hypoxia: Subjective Patient is lying in his bed. He has pursed lip breathing. He says he feels a little more short of breath than usual. He certainly looks to be in some mild distress. He has an oxygen mask in place. He also complains of constipation and mild abdominal pain that is worse with palpation. He denies any chest pain. Physical Exam Constitutional: She looks to be in some mild respiratory distress. Chronically ill-appearing. Eyes: PERRL, conjunctivae normal, anicteric sclerae ENMT: external ear and nose normal, oropharynx normal Neck: normal visual inspection Respiratory: Diminished breath sounds bilaterally. Mild wheezes bilaterally. Cardiovascular: RRR, no murmur, no edema Gastrointestinal (Abdomen): Mild tenderness to palpation. Bowel sounds present. Musculoskeletal: Head/Neck/Chest: normocephalic Skin: no rashes, warm and dry Neurologic: CN's II-XI intact bilaterally Lymphatic: no cervical or axillary lymphadenopathy Results & Data Vital Signs (Past 12 Hours) Vital Signs Temp Pulse Pulse Resp BP Pulse Ox 01/05/19 11:01 97.7 F 98 H 24 155/81 H 93 01/05/19 08:00 98 H 01/05/19 07:51 98.6 F 101 H 24 157/72 H 94 01/05/19 07:09 90 22 91 01/05/19 04:45 111 H 26 H 90 01/05/19 03:33 98.2 F 87 21 157/75 H 96 01/05/19 00:15 101 H 26 H 88 L 01/05/19 00:00 82 PG Care Time/CCT Total # of Minutes Spent Total Time Spent with Patient: Total time spent is greater than 50% in coordination of care (as documented) at patient's floor/unit and/or counseling patient:
--- NOTE | 2019-01-05 12:23 | Nephrology Progress Note ---
Date of Service January 05, 2019 Assessment & Plan (1) Acute kidney injury: -- Endovascular repair of AAA 12/31/18 -- Hemodynamic MIRIAM consistent with ATN -- creatinine has remained fairly stable over the past 24 hour -- Nonoliguric with improvement in urine output, maintaining a slightly negative fluid balance this morning without diuretics -- maintain Damico to gravity -- no need for additional diuretics at this time -- repeat metabolic profile tomorrow a.m. 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 Mr. Valladares was resting comfortably in bed this morning. No fevers or chills. Urine output acceptable. Breathing remains labored. Face mask was applied. Review of Systems Review of Systems: All systems reviewed & are unremarkable except as noted in HPI & below Physical Exam Constitutional: well developed and + ill appearing; no acute distress Eyes: no scleral abnormality and no corneal abnormality ENMT: Ears: no hearing impairment Mouth: + oral mucosal abnormality Neck: normal visual inspection and trachea midline Respiratory: + labored breathing Auscultation: + diminished lung sounds and + rales Cardiovascular: Rate/Rhythm: regular rate Heart Sounds: normal S1, normal S2 and + murmur Musculoskeletal: Extremities: no cyanosis and no clubbing Skin: normal turgor; no lesions Neurologic: Motor/Sensory: no tremor and no asterixis Psychiatric: Orientation: alert and oriented x 3 Results & Data Vital Signs (Past 12 Hours) Vital Signs Temp Pulse Pulse Resp BP Pulse Ox 01/05/19 11:05 103 H 21 94 01/05/19 11:01 36.5 C 98 H 24 155/81 H 93 01/05/19 08:00 98 H 01/05/19 07:51 37 C 101 H 24 157/72 H 94 01/05/19 07:09 90 22 91 01/05/19 04:45 111 H 26 H 90 01/05/19 03:33 36.8 C 87 21 157/75 H 96 PG Care Time/CCT Total # of Minutes Spent Total Time Spent with Patient: Total time spent is greater than 50% in coordination of care (as documented) at patient's floor/unit and/or counseling p atient:
--- NOTE | 2019-01-05 12:30 | Hospitalist Progress Note ---
Date of Service January 05, 2019 Assessment & Plan (1) Ruptured abdominal aortic aneurysm (AAA): - S/p EVAR with BL groin cutdown on 12/31/18, POD#5. - Primary management per vascular surgery. - KUB showed adequate placement of aortobiliac stent graft. - Resumed Plavix post op; V/Q scan did not rule out PE, was a very limited study - holding Heparin ppx. (2) Acute and chronic respiratory failure with hypoxia: - On 4L via NC at home in setting of COPD; has been requiring oxymask, up to 6-7L with very minimal movement. - Possible PE in post op setting -- V/Q scan was a very limited study, CTA contraindicated due to ARF. Doppler of bilat LE negative. - Treatment for COPD with PO Prednisone; hold abx - procalcitonin neg with no evidence of PNA. - Consider pulm edema -- chest CT with small bilat pleural effusions & weight gain (weights are not accurate, measured via bedscale). Received Lasix IV on 01/02 & 01/03. - Consulted pulmonology, appreciate input. - Wean oxygen as tolerated - has not had improvement in resp issues; cannot tolerate BiPAP. - Consulted palliative, plan to transition to home hospice at discharge. (3) COPD with emphysema: - Acute exacerbation in setting of hypoxia. - Currently requiring Oxymask (see above) - Continue Prednisone 60 mg PO daily x 5 days per pulmonary recs. - Received Zosyn x 1 dose, d/c further abx. - Duonebs QID scheduled with Albuterol prn. - No indication for pulmonary follow up - will be discharged with home hospice. (4) Acute renal failure: - Creatinine remains elevated above baseline, was 2.3 this morning; baseline ~1.6-1.8. Likely related to ATN. - Urine output is adequate; continue andrade for accurate I/O's - can discharge with andrade for comfort at home in setting of hospice. - Renal US was negative for obstruction. - U/a +hyaline casts, negative for infection. - Received Lasix IV on 01/02 and 01/03, hold further doses as pt. is not fluid overloaded. - Monitor renal function daily. - Nephrology following, appreciate input. Agree with palliative/hospice plans. (5) Oliguria: - Now resolved; continue andrade for accurate I/Os. (6) CKD (chronic kidney disease) stage 3, GFR 30-59 ml/min: - Renally dose all meds. - ARF as noted above. (7) Ileus: - Ongoing abd bloating and discomfort; KUB this morning showed persistent ileus on labs. - Tolerating CLD but has poor appetite. - Colace 100 mg BID; start Lactulose 20 gm q4hr scheduled until he has a BM. (8) Groin hematoma: - Complex fluid collection in left groin noted on doppler of LE -- likely related to hematoma. - Hold Heparin ppx; continue Plavix. (9) CAD (coronary artery disease): - S/p stent placement at [facility] in 2002. Also had an NSTEMI in 2016, s/p cardiac cath followed by medical management. - Continue Plavix, Simvastatin, Metoprolol as prescribed. - EKG showed ST depression in the anterolateral leads; Trop level x 2 were negative. - C/o acute chest tightness on 01/04, now resolved -- likely related to GERD; continue PPI and added Maalox prn. (10) HTN (hypertension): - Continue Amlodipine 10 mg daily as prescribed. - Increased home Metoprolol to 100 mg BID in setting of tachycardia with exertion; monitor for worsening bronchospasms. (11) HLD (hyperlipidemia): - Continue statin as prescribed. (12) PAD (peripheral artery disease): - S/p bilat iliac artery stents, [place] [facility]. - Continue statin and plavix as prescribed. (13) Pulmonary nodule: - CT showed solid 9 mm LLL nodule; high risk patient in setting of tobacco abuse. - Pulmonology consulted, appreciate input. Will be discharged with home hospice. (14) GERD (gastroesophageal reflux disease): - PPI daily. - Maalox prn. (15) DVT prophylaxis: - SCDs; hold pharmacologic ppx in setting of groin hematoma. Dispo: Continue treatment for COPD and constipation/ileus. Discharge with home hospice, manager case following. Supervising Physician Co-Signing Physician Notes I had a face encounter with the patient and performed a history and physical examination. I discussed plan with the patient. Appreciate input from palliative care. Patient has continued to worsen, family is agreeable to home hospice. Plan is to discharge patient home once all arrangements have been made. I reviewed above note and agree with it. I also had discussion with primary provider on the case. Will switch to my service as patient has become more complicated. Subjective Pt. has increased abd bloating and distention -- is passing gas but has not had a BM. Will increase bowel regimen. He remains on oxymask, significant SOB with very minimal exertion such as sitting up on the side of the bed. Has not been able to ambulate far distances due to SOB. Palliative consulted, plan for home hospice following discharge. Review of Systems Review of Systems: All systems reviewed & are unremarkable except as noted in HPI & below Constitutional: + fatigue and + weakness; no fever and no chills Respiratory: + dyspnea and + dyspnea on exertion; no cough and no wheezing Cardiovascular: no chest pain, no palpitations and no edema Gastrointestinal: + constipation; no abdominal pain and no nausea Genitourinary: no difficulty urinating and no decreased urination Musculoskeletal: no back pain and no joint pain Integumentary: no non-healing lesions Physical Exam Physical Exam: General: Chronically ill appearing male, mild distress in setting of SOB. HEENT: NC/AT; PERRLA with EOMI; [place] conjunctiva, MMM. No erythema of posterior pharynx Neck: Supple and nontender Cardiac: RRR Lungs: Oxymask at 6L; very tachypneic on exam; scattered wheezing throughout. Abdomen: Mod distention; Bowel normoactive X 4; Firm & tender to light palpation. Extremities: Warm. No edema present Neuro: No focal weakness Skin: Incision sites in bilateral groin area with will intact, healing well. Results & Data Vital Signs (Past 12 Hours) Vital Signs Temp Pulse Pulse Resp BP Pulse Ox 01/05/19 11:05 103 H 21 94 01/05/19 11:01 36.5 C 98 H 24 155/81 H 93 01/05/19 08:00 98 H 01/05/19 07:51 37 C 101 H 24 157/72 H 94 01/05/19 07:09 90 22 91 01/05/19 04:45 111 H 26 H 90 01/05/19 03:33 36.8 C 87 21 157/75 H 96 Laboratory Results 01/05/19 01/05/19 Range/Units 06:00 06:00 WBC 10.19 (4.8-10.8) K/uL RBC 3.15 L (4.7-6.1) M/uL Hgb 9.4 L (14.0-18.0) g/dL Hct 27.6 L (42-52) % MCV 87.6 (80-100) fL MCH 29.8 (25-34) pg MCHC 34.1 (32-36) g/dL RDW Std Deviation 46.9 H (36.4-46.3) fL RDW Coeff of Tamara 14.8 H (11.5-14.5) % Plt Count 251 (130-400) K/uL MPV 9.2 (7.4-10.4) fL Absolute Nucleated RBC 0.04 H (0-0) K/uL Nucleated RBC % (auto) 0.4 % Sodium 135 L (136-145) mmol/L Potassium 4.2 (3.5-5.1) mmol/L Chloride 103 (98-107) mmol/L Carbon Dioxide 22 (21-32) mmol/L Anion Gap 10.0 (3-11) BUN 71 H (7-18) mg/dl Creatinine 2.30 H D (0.6-1.4) mg/dl Est Cr Clr Drug Dosing 26.9 ml/min Est GFR ( Amer) 30.4 Est GFR (Non-Af Amer) 26.2 BUN/Creatinine Ratio 31.0 H (10-20) Glucose 93 (70-99) mg/dl Calcium 9.0 (8.5-10.1) mg/dl PG Care Time/CCT Total # of Minutes Spent Total Time Spent with Patient: Total time spent is greater than 50% in coordination of care (as documented) at patient's floor/unit and/or counseling patient: (1) COPD with emphysema Emphysema type: centrilobular Qualified Code(s): J43.2 - Centrilobular emphysema
[2019-01-05] MEDS: LACTULOSE SYRUP 20 GM/30 ML UDC PO SCH ×3 (15:36→23:02)
--- NOTE | 2019-01-05 15:52 | Surgery Progress Note ---
Date of Service January 05, 2019 Assessment & Plan (1) Ruptured abdominal aortic aneurysm (AAA): Patient is postop endovascular repair of abdominal aortic aneurysm. His repair of his symptomatic aneurysm. He is doing well from repair. Incisions are healing nicely in both groins with good distal flow. (2) Acute renal failure: His creatinine is mildly increased suggest however he is still making urine. The renal insufficiency is most likely secondary to contrast-induced nephropathy from his endovascular repair. Recs per nephrology. (3) Hypoxia: Patient is now on 5L oxymask. At rest his O2 sats are 90% and breathing is somewhat labored. Treatment per pulmonology (4) Ileus: He is having bowel sounds and passing gas, but remains constipated and distended. Pt apparently has lactulose ordered by medicine and jun in CLD. Hopefully this will improve. Subjective 78 yo m POD #6 after EVAR and BL groin cutdown, seenin f/u today. Pt admits SOB at rest, and ESPINOZA with any activity. Contiues to have constipation/ileus. No other new complaints. Review of Systems Review of Systems: All systems reviewed & are unremarkable except as noted in HPI & below Physical Exam Constitutional: WD/WN, vitals as above Respiratory: + labored breathing Auscultation: + diminished lung sounds Cardiovascular: Rate/Rhythm: regular rate and regular rhythm Vessels: dorsalis pedis pulses present Extremities: normal capillary refill Gastrointestinal (Abdomen): Inspection/Auscultation: + abdomen distended; + abnormal bowel sounds (distant) Percussion/Palpation: abdomen nontender and no guarding Musculoskeletal: no cyanosis or clubbing, extremities motor strength 5/5 Skin: + incision (BL groins C/D/I with will +tender, mild ecchymosis) Neurologic: moves all extremities; no focal motor deficits Speech / Cognition: normal speech Psychiatric: A+Ox3, euthymic affect Results & Data Vital Signs (Past 12 Hours) Vital Signs Temp Pulse Pulse Pulse Resp BP Pulse Ox 01/05/19 15:29 105 H 24 90 01/05/19 11:05 103 H 21 94 01/05/19 11:01 36.5 C 98 H 24 155/81 H 93 01/05/19 08:00 98 H 01/05/19 07:51 37 C 101 H 24 157/72 H 94 01/05/19 07:09 90 22 91 01/05/19 04:45 111 H 26 H 90
[2019-01-05] MEDS ORDERED: HydrALAZINE HCL 20 MG/ML VIAL IV PRN (16:42)
[2019-01-06] MEDS: ALBUTEROL 0.083% NEBU SOLN 3 ML VIAL INH PRN (02:02)
[2019-01-06] MEDS: LACTULOSE SYRUP 20 GM/30 ML UDC PO SCH ×4 (03:11→11:48)
[2019-01-06] MEDS: LORazepam 0.5 MG TAB PO PRN (03:14)
[2019-01-06 06:59] LABS: BUN Creatinine Ratio 33.2 (10-20); Calcium 8.9 mg/dl (8.5-10.1); Creatinine Clr Calc Pharmacy 27.5 ml/min; Est GFR (African American) 31.2; Est GFR (Non-African American) 26.9; Potassium 4.8 mmol/L (3.5-5.1)
[2019-01-06] MEDS: ALBUT/IPRATROP 3MG/0.5MG NEB 3 ML VIAL NEB SCH ×3 (07:07→13:32)
[2019-01-06] MEDS: AMLODIPINE BESYLATE 5 MG TAB PO SCH (08:39)
[2019-01-06] MEDS: CHOLECALCIFEROL 1,000 UNITS TAB PO SCH (08:39)
[2019-01-06] MEDS: predniSONE 20 MG TAB PO SCH (08:40)
[2019-01-06] MEDS: SIMVASTATIN 40 MG TAB PO SCH (08:40)
[2019-01-06] MEDS: DOCUSATE SODIUM 100 MG CAP PO SCH (08:40)
[2019-01-06] MEDS: PANTOprazole 40 MG TAB PO SCH (08:40)
[2019-01-06] MEDS: METOPROLOL TARTRATE 100 MG TAB PO SCH (08:41)
[2019-01-06] MEDS: CLOPIDOGREL BISULFATE 75 MG TAB PO SCH (08:41)
--- NOTE | 2019-01-06 10:41 | Surgery Progress Note ---
Date of Service January 06, 2019 Assessment & Plan (1) Ruptured abdominal aortic aneurysm (AAA): Patient is postop endovascular repair of abdominal aortic aneurysm. His repair of his symptomatic aneurysm. He is doing well from repair. Incisions are healing nicely in both groins with good distal flow. (2) Acute renal failure: His creatinine is mildly increased suggest however he is still making urine. The renal insufficiency is most likely secondary to contrast-induced nephropathy from his endovascular repair. Recs per nephrology. (3) Hypoxia: Patient is now on 6L oxymask. At rest his breathing is somewhat labored. Treatment per pulmonology. (4) Ileus: He is having bowel sounds and passing gas, but remains constipated and distended. Per staff, lactulose has not been effective. Continues CLD and miralax/colace. Subjective 78 yo m POD #7 after EVAR and BL groin cutdown, seen in f/u today. Pt admits SOB at rest, and ESPINOZA with any activity. Continues to have constipation/ileus. No other new complaints. Review of Systems Review of Systems: All systems reviewed & are unremarkable except as noted in HPI & below Physical Exam Constitutional: WD/WN, vitals as above Respiratory: normal respiratory effort (on oxygen) and + labored breathing Auscultation: + diminished lung sounds and + crackles (mild bibasilar) Cardiovascular: Rate/Rhythm: regular rate and regular rhythm Vessels: dorsalis pedis pulses present Extremities: normal capillary refill and + edema Gastrointestinal (Abdomen): Inspection/Auscultation: + abdomen distended; + abnormal bowel sounds (distant) Percussion/Palpation: abdomen nontender and no guarding Musculoskeletal: no cyanosis or clubbing, extremities motor strength 5/5 Skin: + incision (BL groins C/D/I with will +tender, mild ecchymosis) Neurologic: moves all extremities; no focal motor deficits Speech / Cognition: normal speech Psychiatric: A+Ox3, euthymic affect Results & Data Vital Signs (Past 12 Hours) Vital Signs Temp Pulse Pulse Resp BP Pulse Ox 01/06/19 07:57 37 C 90 99 H 26 H 162/82 H 98 01/06/19 07:07 96 H 22 93 01/06/19 03:06 36.5 C 98 H 23 158/78 H 95 01/06/19 02:03 94 H 28 H 94 01/05/19 23:37 36.6 C 89 21 163/82 H 97 01/05/19 22:58 82
--- NOTE | 2019-01-06 10:53 | Palliative Care Progress Note ---
Date of Service January 06, 2019 Assessment & Plan (1) Goals of care, counseling/discussion: This is a 78 year old male who presented to the [facility] on December 31 with symptoms of a ruptured abdominal aortic aneurysm. He was evaluated by Dr. Mckeon and is currently POD #4 s/p EVAR with bilateral groin cutdown. Additional PMH includes: chronic respiratory failure, CKD Stage 3, PAD, HLD, Prostate CA, HTN, and CAD. This patient tolerated the procedure well, but unfortunately, became increasingly hypoxic. At baseline, he uses 4LNC of supplemental O2 at home. During the hypoxia, he will desaturate to 80-82% on 10L high flow oxygen, and also reports SOB at rest. He was placed on bipap overnight and has not been tolerating this. The hospitalist team has ruled out infectious and aspiration pneumonia as his CXR is negative. He has been evaluated by pulmonary and is being treated for an acute on chronic exacerbation with steroids and Duonebs, but is not showing overall improvement. An ABG obtained yesterday, suggests that he has compensated, but his functional status remains poor. Per Pulmonary, remains in end stage disease with poor prognosis. Additionally, his renal function is worsening with his most recent creatinine of 2.23, up from his baseline of 1.6. Palliative Care was consulted to discuss goals of care. -The patient was transferred to room 354-2. I met with the patient in his room. -He has developed abdominal distention from constipation which was confirmed as an ileus on a KUB. -Multiple medications were attempted including Lactulose; however, the patient was not responding likely due to the fact that the ileus is higher in the intestinal tract. -I met with the patient who was considerably SOB and wheezing. I discussed inserting an NGT with the patient and he was receptive to trying it; however, two attempts were unsuccessful with insertion, likely due to how much respiratory distress he was experiencing. -I did phone and talk with Isi and Nathaniel on the telephone. They noticed a big decline in his condition last evening and they really want to focus on comfort. -I talked with the patients daughter, and son in law at the bedside one hour later and he was more lethargic; however, did receive a dose of Morphine. -After the patient is more comfortable, we could consider trying for an NGT insertion again; however, I think the window of opportunity is narrowing for the benefit to outweigh the risk. -The patient just said 'I am done' and kept asking for a breathing treatment. I did suggest a box fan as well for the patient and ordered one since he was receptive to this. -The patient is no longer stable for transfer out of hospital due to his worsening breathing, distended and uncontrolled abdominal discomfort and inability to move without discomfort and desaturation. As the patient was to return home with [facility], case management contacting them to evaluate for GIP. Should the patient improve, we could readdress -The family was educated on the effects of IV Morphine and Ativan including respiratory distress, which may lead to him becoming overall unresponsive and eventually lead to his demise with increased frequency. All family understanding. -I ordered the following medications: Morphine 2mg IV Q2 PRN, Ativan 0.5mg IV Q4 PRN for agitation and anxiety, and Atropine gtts Administer 4 gtts SL Q2 PRN for secretions. -I anticipate that this patient will continue to decompensate quickly and anticipate his life expectancy is hours to a few days. -Palliative Care will assist with any additional decision making or symptom management needs should they arise. -PPS: 20% (2) Acute and chronic respiratory failure with hypoxia: (3) CKD (chronic kidney disease) stage 3, GFR 30-59 ml/min: (4) Pulmonary nodule: (5) Ruptured abdominal aortic aneurysm (AAA): Subjective Pt is POD #7 after EVAR Patient with considerably worsened SOB today. Patient was noted to have increased distension and constipation and a KUB confirmed an ileus. Patient stated he is anxious and uncomfortable. Please see A/P for further details. Review of Systems Review of Systems: Patient reports SOB with movement Patient reports surgical incisional pain Patient reports anxiety Patient reports distention and constipation Physical Exam Constitutional: well developed Neck: trachea midline, no thyromegaly Respiratory: + uses accessory muscles, + tachypneic, + pursed lip breathing and symmetric chest movement Auscultation: + diminished lung sounds, + crackles (expiratory ) and + rhonchi Cardiovascular: RRR, no murmur, no edema Gastrointestinal (Abdomen): Inspection/Auscultation: + abdomen distended; + abnormal bowel sounds (absent bowel sounds ) Percussion/Palpation: + abdomen rigid Psychiatric: Orientation: alert and oriented x 3 Insight: good insight Judgement: good judgement Lymphatic: no cervical or axillary lymphadenopathy Results & Data Vital Signs (Past 12 Hours) Vital Signs Temp Pulse Pulse Resp BP Pulse Ox 01/06/19 07:57 37 C 90 99 H 26 H 162/82 H 98 01/06/19 07:07 96 H 22 93 01/06/19 03:06 36.5 C 98 H 23 158/78 H 95 01/06/19 02:03 94 H 28 H 94 01/05/19 23:37 36.6 C 89 21 163/82 H 97 01/05/19 22:58 82 Supervising Physician Co-Signing Physician Notes Patient seen and examined-multiple family at bedside including patient's and children. Patient recently received a dose of PRN morphine-and is much more comfortable. PE: Patient in mild distress due to his distended abdomen and increased respiratory rate HEENT: EOMI, hearing within normal limits Respirations: Mild increased work of breathing CV: Tachycardic on exam Abdomen: Distended, absent bowel sounds, color changes in the periumbilical area Neuro: Sedated but arousable Agree with above note, assessment and plan as per ARVIN Lomas-patient is to be admitted to hospice under GIP status. Recommend discontinuing all p.o. meds and continue comfort meds only. Family aware of patient's prognosis PG Care Time/CCT Total # of Minutes Spent Total Time Spent with Patient: Total time spent is greater than 50% in coordination of care (as documented) at patient's floor/unit and/or counseling patient: 60 Prolonged Care Time Prolonged Care Time: Yes Total Prolonged Care Time: 30 Time Spent Midlevel Total time spent 60 minutes with > 50% of that time spent assessing the patient, discussing goals of care with the patient, family, and IDT Attending Spent 30 minutes in addition to the 60 minutes spent by ARVIN Lomas- for a total of 90 minutes with greater than 50% of the time spent at bedside providing support to patient and family. Critical Care Time Prolonged Care Time Prolonged Care Time: Yes Total Prolonged Care Time: 30 90
[2019-01-06] MEDS ORDERED: MoRPHine SULFATE 2 MG/ML CARP IV STA (11:05)
[2019-01-06] MEDS ORDERED: MoRPHine SULFATE 2 MG/ML CARP ONE (11:22)
[2019-01-06] MEDS ORDERED: LORazepam 0.25 MG/0.5 ML VIAL IV PRN (12:36)
[2019-01-06] MEDS ORDERED: MoRPHine SULFATE 2 MG/ML CARP IV PRN (12:36)
[2019-01-06] MEDS ORDERED: ATROPINE SULFATE 1% OP SOLN 2 ML BTL PO PRN (12:36)
--- NOTE | 2019-01-06 12:48 | Hospitalist Progress Note ---
Date of Service January 06, 2019 Assessment & Plan (1) Acute and chronic respiratory failure with hypoxia: - Has had worsening resp distress in setting of end stage COPD -- required oxymask at 6-7L during this admission. - Significant decline in clinical status over last 24 hours -- plan to convert to comfort care measures and possible GIP. - Oxygen as needed for comfort - has been requiring 6-7L with NC vs. oxymask. - Will continue Duonebs QID scheduled with Albuterol prn. - Morphine 2 mg IV q2hr prn SOB/pain. - Ativan 0.25 mg IV q4hr prn anxiety. - Atropine drops q2hr prn secretions. - Palliative following, greatly appreciate input. (2) Ileus: - Most recent KUB showed ileus on 01/05 -- has increased abd bloating and pain. - Failed NG insertion attempt x 2. Will not be able to proceed with decompression. - CLD as tolerated for comfort. - Did not respond to aggressive bowel regimen, including Lactulose q4hr x multiple doses or enemas. (3) Ruptured abdominal aortic aneurysm (AAA): - S/p EVAR with BL groin cutdown on 12/31/18, POD#6. - Convert to comfort care measures as noted above. - Monitor for signs of bleeding at incision sites. (4) COPD with emphysema: - Acute exacerbation in setting of hypoxia; end stage lung disease, no improvement with conservative measures. - Comfort care as noted above with Morphine prn. - Oxygen via NC at 6-7L. - Duonebs QID scheduled. (5) Acute renal failure: - Creatinine peaked at 2.6 during this admission, likely related to ATN. - Nephro was consulted, appreciate input. - Discontinue all lab work monitoring. - Maintain andrade for comfort. (6) Oliguria: - Has had good urine output. (7) CKD (chronic kidney disease) stage 3, GFR 30-59 ml/min: - Renally dose all meds. (8) CAD (coronary artery disease): - S/p stent placement at [facility] in 2002. Also had an NSTEMI in 2016, s/p cardiac cath followed by medical management. - D/c all cardiac meds. (9) HTN (hypertension): - D/c blood pressure meds in setting of ileus. - Hydralazine IV prn. (10) HLD (hyperlipidemia): - D/c' home statin. (11) PAD (peripheral artery disease): - S/p bilat iliac artery stents, completed at [facility]. (12) Pulmonary nodule: - CT showed solid 9 mm LLL nodule; high risk patient in setting of tobacco abuse. - Pulmonology consulted, appreciate input. Will be transitioned to comfort care. (13) GERD (gastroesophageal reflux disease): - D/c PPI. (14) DVT prophylaxis: - D/c ppx. Dispo: Convert to comfort care measures; plan to admit to GIP if accepted. Subjective Pt. has increased SOB today, on oxymask at 6-7L. Appears very tachypneic on exam and has rhonchi/wheezing throughout all lung ybarra. Abd distention is increased, has not had a BM. Pt. was agreeable to NG tube but had failed insertion x 2. Had oozing from right groin incision site, now improved. Palliative following -- pt. will be converted to comfort measures. Also discussed with heel caser -- will hopefully convert patient to GIP via [facility] hospice. Started Morphine IV for SOB/pain. Review of Systems Review of Systems: All systems reviewed & are unremarkable except as noted in HPI & below Constitutional: + fatigue and + weakness; no fever and no chills Respiratory: + dyspnea, + dyspnea on exertion and + wheezing; no cough Cardiovascular: no chest pain, no palpitations and no edema Gastrointestinal: + abdominal pain, + bloating and + constipation Genitourinary: no difficulty urinating Musculoskeletal: no back pain and no joint pain Physical Exam Physical Exam: General: Chronically ill appearing male, moderate distress 2/2 SOB. HEENT: NC/AT; PERRLA with EOMI; [place] conjunctiva, MMM. Cardiac: RRR Lungs: Oxymask at 6-7L; tachypneic on exam with scattered wheezing/rhonchi throughout all lung ybarra. Abdomen: Severe distention; Bowel hypoactive X 4; Firm & TTP. Extremities: Warm. No edema present Skin: Incision sites in bilateral groin area with will intact, acute bleeding from right incision site now resolved. Results & Data Vital Signs (Past 12 Hours) Vital Signs Temp Pulse Pulse Pulse Resp BP Pulse Ox 01/06/19 11:39 96 H 34 H 90 01/06/19 07:57 37 C 90 99 H 26 H 162/82 H 98 01/06/19 07:07 96 H 22 93 01/06/19 03:06 36.5 C 98 H 23 158/78 H 95 01/06/19 02:03 94 H 28 H 94 Laboratory Results 01/06/19 Range/Units 06:09 Sodium 138 (136-145) mmol/L Potassium 4.8 (3.5-5.1) mmol/L Chloride 105 (98-107) mmol/L Carbon Dioxide 25 (21-32) mmol/L Anion Gap 8.0 (3-11) BUN 75 H (7-18) mg/dl Creatinine 2.25 H (0.6-1.4) mg/dl Est Cr Clr Drug Dosing 27.5 ml/min Est GFR ( Amer) 31.2 Est GFR (Non-Af Amer) 26.9 BUN/Creatinine Ratio 33.2 H (10-20) Glucose 141 H (70-99) mg/dl Calcium 8.9 (8.5-10.1) mg/dl PG Care Time/CCT Total # of Minutes Spent Total Time Spent with Patient: Total time spent is greater than 50% in coordination of care (as documented) at patient's floor/unit and/or counseling patient: (1) COPD with emphysema Emphysema type: centrilobular Qualified Code(s): J43.2 - Centrilobular emphysema
--- NOTE | 2019-01-06 14:30 | Discharge Summary ---
Date of Service January 06, 2019 Admission HPI Per Admitting Provider 78 yo male who presented today with abdominal and lower quadrant pain. Found to have a large AAA with a large amount of standing. He is on home O2 and has renal insufficiency. Admission Exam Per Admitting Provider Constitutional: well developed and well nourished; no acute distress Respiratory: normal respiratory effort; no respiratory distress Auscultation: lungs clear to auscultation bilaterally Cardiovascular: Rate/Rhythm: regular rate and regular rhythm Extremities: normal capillary refill Gastrointestinal (Abdomen): Inspection/Auscultation: abdomen normal to inspection Percussion/Palpation: + pulsatile mass; abdomen nontender Neurologic: CN's II-XI intact bilaterally; no focal motor deficits Psychiatric: Orientation: alert and oriented x 3 Principal Diagnosis Ruptured AAA, Acute on Chronic Hypoxic Respiratory Failure, Ileus, Acute Renal Failure, End stage COPD Discharge Exam General: Chronically ill appearing male, moderate distress 2/2 SOB. HEENT: NC/AT; PERRLA with EOMI; [place] conjunctiva, MMM. Cardiac: RRR Lungs: Oxymask at 6-7L; tachypneic on exam with scattered wheezing/rhonchi throughout all lung ybarra. Abdomen: Severe distention; Bowel hypoactive X 4; Firm & TTP. Extremities: Warm. No edema present Skin: Incision sites in bilateral groin area with will intact, acute bleeding from right incision site now resolved. Discharge Data Allergies Allergy/AdvReac Type Severity Reaction Status Date / Time No Known Allergies Allergy Verified 12/31/18 07:15 Consultations 12/31/18 08:59 Consult Vascular Surgery Stat 12/31/18 11:58 Consult Label Coder Routine 01/02/19 07:42 Consult Nephrology Routine 01/02/19 14:44 Consult Hospitalist Routine 01/03/19 09:15 Consult Pulmonology Routine 01/04/19 09:02 Consult Palliative Care Routine Procedures Performed Operation Date: 12/31/18 09:45 Actual Procedures p Bilateral femoral artery exposure, bilateral transluminal angioplasty of external iliac artery, endovascular abdominal aortic aneurysm repair, bilateral distal extensions(Not Applicable) - Milton Mckeon MD Ordered Studies 12/31/18 06:53 CT abd pelvis IV con only Stat 12/31/18 09:18 US guide vascular access Stat 12/31/18 11:48 EV aorto marlon iliac rupture Stat 01/02/19 16:15 US venous doppler LE BI Stat 01/02/19 18:28 US renal/blad retro comp Urgent 01/03/19 07:28 CT chest wo con Urgent Hospital Course (1) Acute and chronic respiratory failure with hypoxia: Has had worsening resp distress in setting of end stage COPD -- required oxymask at 6-7L during this admission. Significant decline in clinical status over last 24 hours -- plan to convert to comfort care measures and GIP. Oxygen as needed for comfort - has been requiring 6-7L with NC vs. oxymask. Continue Duonebs QID scheduled with Albuterol prn. Morphine 2 mg IV q2hr prn SOB/pain. Ativan 0.25 mg IV q4hr prn anxiety. Atropine drops q2hr prn secretions. Palliative following, greatly appreciate input. (2) Ileus: Most recent KUB showed ileus on 01/05 -- has increased abd bloating and pain. Failed NG insertion attempt x 2. Will not be able to proceed with decompression. CLD as tolerated for comfort. Did not respond to aggressive bowel regimen, including Lactulose q4hr x multiple doses or enemas. (3) Ruptured abdominal aortic aneurysm (AAA): S/p EVAR with BL groin cutdown on 12/31/18, POD#6. Convert to comfort care measures as noted above. Monitor for signs of bleeding at incision sites. (4) COPD with emphysema: Acute exacerbation in setting of hypoxia; end stage lung disease, no improvement with conservative measures. Comfort care as noted above with Morphine prn. Oxygen via NC at 6-7L. Duonebs QID scheduled. (5) Acute renal failure: Creatinine peaked at 2.6 during this admission, likely related to ATN. Nephro was consulted, appreciate input. Discontinue all lab work monitoring. Maintain andrade for comfort. (6) Oliguria: Has had good urine output. (7) CKD (chronic kidney disease) stage 3, GFR 30-59 ml/min: Renally dose all meds. (8) CAD (coronary artery disease): S/p stent placement at [facility] in 2002. Also had an NSTEMI in 2016, s/p cardiac cath followed by medical management. D/c all cardiac meds. (9) HTN (hypertension): D/c blood pressure meds in setting of ileus. Hydralazine IV prn. (10) HLD (hyperlipidemia): D/c'ed home statin. (11) PAD (peripheral artery disease): S/p bilat iliac artery stents, completed at [facility]. (12) Pulmonary nodule: CT showed solid 9 mm LLL nodule; high risk patient in setting of tobacco abuse. Pulmonology consulted, appreciate input. Will be transitioned to comfort care. (13) GERD (gastroesophageal reflux disease): D/c PPI. (14) DVT prophylaxis: D/c ppx. Discharge and re-admit to [facility]. Total Time Total Time Spent Total Time Spent (In Minutes): >30 minutes Total Time Includes: Examination of the Patient, Discharge Planning, Medication Reconciliation, Communication With Other Providers and Other Discharge Plan Discharge Items Patient Disposition: Hospice - Medical Facility Reason For Visit: POST EVAR FOR SYMPTOMATIC AAA Discharge Diagnosis: Ruptured AAA, Acute Renal Failure, Acute Hypoxic Respiratory Failure, End stage COPD Activity: As commented below Non-emergency contact: Primary Care Provider Call non-emergency contact if: your symptoms worsen Follow-up/Referrals: Jasen Banda MD [Primary Care Provider] - Milton Mckeon MD [Physician] - 01/12/19 1:45 pm (Please, follow up with Dr. Mckeon on January 12 at 1:45 pm. *The office is located at [address] [place] [address] in [place]. This is next to the [place] [facility]. If you need to change/cancel this appointment, call the office at [phone].) Diet: Clear liquid Addtl Attending Provider Instructions: Not applicable. Pending Studies at Discharge: No Stand-Alone Forms: My [facility] Skilled Items Patient informed of condition?: Yes DNR: Yes Discharge Level of Care: Other Communicable Disease: No Discharge Prognosis: Deteriorating Lines: Peripheral IV Urinary Catheter: No Medications and DC Order Prescriptions: Continued albuterol sulfate 2.5 mg /3 mL (0.083 %) Solution For Nebulization 2.5 mg INHALATION QID PRN (Reason: Shortness Of Breath) RF: 0 Discontinued albuterol sulfate 90 mcg/actuation HFA aerosol inhaler 1 puffs inhalation BID PRN (Reason: shortness of breath) RF: 0 amlodipine 10 mg tablet 10 mg PO DAILY Qty: 60 RF: 0 clopidogrel 75 mg tablet 75 mg PO DAILY Qty: 30 RF: 0 metoprolol tartrate 50 mg tablet 75 mg PO BID RF: 0 nitroglycerin 0.4 mg tablet, sublingual 0.4 mg SL Q5M RF: 0 pantoprazole 40 mg tablet,delayed release (DR/EC) 40 mg PO DAILY Qty: 90 RF: 0 simvastatin 40 mg tablet 40 mg PO DAILY Qty: 90 RF: 0 cholecalciferol (vitamin D3) 3,000 unit tablet 3,000 units PO DAILY Qty: 30 RF: 0 Discharge Orders: Discharge Order (Routine); Ordered 01/06/19 Ordered By: Evelyn Del Valle Admission Data Admit Date/Time: 12/31/18 11:58 Attending Provider: Ronak Tijerina Admit Provider: Milton Mckeon Primary Care Provider: Jasen Banda Other Providers: Manfred Bustamante ; Ronak Tijerina ; Hospice,Family ; Taz Zhou ; Milton Mckeon ; Maria Antonia York ; Missael Tierney ; Taz Conn ; Kallie Andrews ; Will Abarca ; Steven Hi ; Alexandru Lopez ; Triston Maharaj ; Saad Loaiza ; Vitaliy Whitlock ; Ciro Valle ; Selene Hong ; Steffen Abdalla ; Prince Laureano ; Guillermo Brown ; Nathaniel Hanna ; Dany Quispe ; Nickolas Oh. Other Interventions: Discharge Summary Assessment (RN) Last Done: 01/06/19 14:28 DC Date/Time DO NOT enter until pt leaves facility: 01/06/19 14:36 Supervising Physician Co-Signing Physician Notes During my face to face encounter, I interviewed patient and performed a physical examination. I answered all of the patients questions and concerns. I discussed discharge plan with patient and APC. Patient will be discharged and readmitted under [facility] as he is approaching his end of life. Family is in agreement.
[2019-01-06] MEDS ORDERED: MoRPHine SULFATE 2 MG/ML CARP IV SCH (15:00)
--- NOTE | 2019-01-09 11:38 | Operative Report ---
Post Operative Report Pre & Post Diagnosis Operation Date: 12/31/18 09:45 Pre-Op Diagnosis: Symptomatic abdominal aortic aneurysm Post-Op Diagnosis: Symptomatic abdominal aortic aneurysm I identified the patient and participated in the time-out.: Yes Procedure Operation Date: 12/31/18 09:45 Actual Procedures p Bilateral femoral artery exposure, bilateral transluminal angioplasty of external iliac artery, endovascular abdominal aortic aneurysm repair, bilateral distal extensions(Not Applicable) - Milton Mckeon MD Surgeon Milton Mckeon MD Evening Or Night Nurse Supervisor none Estimated Blood Loss 50 Findings Consistent with Post-Op Diagnosis Specimens None Anesthesia Type General Complications none Disposition Accompanied Patient To Recovery: No Disposition: Surgical ICU Indications This is a 78-year-old male who was seen in the emergency room for abdominal discomfort. CT scan showed a large abdominal aortic aneurysm with significant stranding. This was considered a symptomatic abdominal aortic aneurysm. E ndovascular repair was recommended. I have discussed the risks options and benefits of the procedure with the patient. The patient understands the risks options and benefits and agrees to the procedure. Description of Procedure The patient was taken to the operating placed in the supine position. After general anesthesia was accomplished the patient was prepped and draped in usual fashion. Patient was identified and a timeout was performed. Bilateral groin cutdowns were performed. The common femoral artery on both sides was exposed. Using entrance needle the left common femoral artery was punctured. A wire was inserted and 8 Congolese sheath was inserted over the wire. Same procedure was done for the right side. We then passed an 035 Glidewire through the left femoral sheath up into the suprarenal aorta. A Kumpe was then passed over the wire and the wire was exchanged to a Burton wire. Same procedure was done on the right side. We then exchanged the 8 Congolese sheath in the left groin to 12 Congolese. The 12 Congolese sheath would only go up to the mid external iliac. There was a stenosis in the external iliac on the left side. We then moved remove the dilator to 12 Congolese sheath and through this sheath we balloon angioplastied the external iliac of the left side with an 8 x 40 balloon. After this was completed the 12 Congolese sheath slid easily into the abdominal aorta. On the right side we then dilated the puncture in the right common femoral with a 12 Congolese dilator. A 16 Congolese dilator was then inserted but did get hung up on the external iliac on the right side also due to stenosis. We then inserted the 18 Congolese sheath which passed into the distal external iliac. We removed the dilator and then inserted the 8 x 40 balloon and dilated the right external iliac artery also. Once this was done the 18 Congolese sheath also passed up in the aorta without any difficulty. Patient did have bilateral common iliac roby nts which were traversed with the sheath without difficulty. Then point and a pigtail was inserted through the left groin. Arteriography was performed. Renal arteries were marked. From the CAT scan and the aortogram we decided to use a 31 x 14 1/2 x 15 excluder device. This was then brought to the operative field inserted through the right groin and placed in the abdominal aorta just below the renal arteries. Another injection was done at that point showing the renal arteries. The graft was readjusted and deployed just below the renal arteries. A quick injection done post deployment showed the graft just below the renal arteries in good position. Pigtail was pulled downward and the hooks of the graft were deployed. Using a 035 wire and a Kumpe catheter the gait was cannulated. Once this was done we then exchanged a wire to a Burton wire again. The sheath was then advanced into the gait. We had injected the sheath to marked the internal iliac on the left side however there was no left internal iliac artery. We then brought a 16 x 14-1/2 x 10 contralateral limb to the operative field. This was passed into the left side. Prior to deploying this and pulling the sheath back the 18 Congolese sheath in the right side was pulled back and the ipsilateral limb was deployed. We then pulled back to 12 Congolese sheath and deployed the contralateral limb. The limb appeared to be a little short and still was in the stent that was previously placed in the left common iliac. We then extended the left limb with a 16 x 14 and half by 10 extension. We did a hand-injection on the right side showing where the origin to the right internal iliac was. We then extended the right limb with a 16 x 14 and half by 12 down to the common iliac bifurcation. Once this was completed we used the Q50 balloon to balloon all the overlaps and attachment sites. After this completed the pigtail catheter was reinserted. Completion aortogram was performed which showed no evidence of type I or type II endoleak. There is good flow into the iliacs at that time. Both renal arteries were visualized. The puncture site in the left groin was then closed with a 5-0 Prolene once a 12 Congolese sheath was removed. Good pulses felt distally in the common femoral artery on the left side. Next the 18 Congolese sheath was removed from the right side and a puncture site closed again with a 5-0 Prolene suture. Good flow was seen beyond this closure. Adequate hemostasis was then obtained of both groins. Both groins were then closed with a running 2-0 Vicryl suture of the femoral sheath, a running 3-0 Vicryl suture for the subcutaneous layer, and will for the skin. Sterile dressings were applied to the wounds.The patient left the operation room in satisfactory condition and tolerated the procedure well. All needle and sponge counts were correct at the end of the procedure. He was transported directly to the ICU for recovery. I attest to the content of the Intraoperative Record and any orders documented therein. Any exceptions are noted below.
== END 2019-01-06 14:36 | disposition hospice, inpatient (51) | DRG 268 ==
LOC: ED 06:44 → ASU 09:13 → 1E 11:58 → SUATTDRO 11:58 → 3N 01-01 09:28 → 2E 01-02 15:48 → 3W 01-06 10:46
PROC: EV.EVAR (2018-12-31 09:45)
DX: Z51.5 Encounter for palliative care; I12.9 Hypertensive chronic kidney disease with stage 1 through stage 4 chronic kidney disease, or unspecified chronic kidney disease; N18.3 Chronic kidney disease, stage 3 (moderate); N17.0 Acute kidney failure with tubular necrosis; J43.9 Emphysema, unspecified; K56.7 Ileus, unspecified; R91.1 Solitary pulmonary nodule; I73.9 Peripheral vascular disease, unspecified; D64.9 Anemia, unspecified; I71.3 Abdominal aortic aneurysm, ruptured; R34 Anuria and oliguria; I25.10 Atherosclerotic heart disease of native coronary artery without angina pectoris; K21.9 Gastro-esophageal reflux disease without esophagitis; E78.5 Hyperlipidemia, unspecified

== ENCOUNTER 2019-01-06 14:36 | Inpatient (IN) ==
[2019-01-06] MEDS ORDERED: ONDANSETRON INJ 2 MG/ML 2 ML VIAL IV PRN (15:01)
[2019-01-06] MEDS ORDERED: ATROPINE SULFATE 1% OP SOLN 2 ML BTL PO PRN (15:01)
[2019-01-06] MEDS ORDERED: LORazepam 0.5 MG/1 ML VIAL IV PRN (15:01)
[2019-01-06] MEDS ORDERED: ALBUTEROL 0.083% NEBU SOLN 3 ML VIAL INH PRN (15:01)
--- NOTE | 2019-01-06 15:06 | History & Physical Report ---
Date of Service January 06, 2019 Assessment & Plan (1) Acute on chronic respiratory failure with hypoxia: - Worsening resp distress in setting of end stage COPD -- required oxymask at 6-7L during this admission. - Significant decline in clinical status over last 24 hours -- will admit to [facility] . - Oxygen as needed for comfort - has been requiring 6-7L. - Continue Duonebs QID scheduled with Albuterol prn. - Morphine 2 mg IV q4hr scheduled for SOB. - Ativan 0.5 mg IV q6hr prn anxiety. - Atropine drops q2hr prn secretions. - Palliative following, greatly appreciate input. (2) Ileus: - Most recent KUB showed ileus on 01/05 -- has increased abd bloating and pain. - Failed NG insertion attempt x 2. Will not be able to proceed with decompression. - CLD as tolerated for comfort. - Did not respond to aggressive bowel regimen, including Lactulose q4hr x multiple doses or enemas. (3) Ruptured abdominal aortic aneurysm (AAA): - S/p EVAR with BL groin cutdown on 12/31/18, POD#6. - Converted to comfort care measures as noted above. - Monitor for signs of bleeding at incision sites. Dispo: Comfort care, palliative care following. History of Present Illness Chief Complaint: Hospice Primary Care Provider: Jasen Banda MD Mr. Valladares is a 78 year old male with past medical history of end stage COPD, chronic resp failure, ruptured AAA s/p repair on 12/31, CKD, CAD, HTN, HLD, PAD, GERD who was admitted from 12/31-01/06 for AAA repair. He had a prolonged hospital course; pt. had acute respiratory failure likely related to end stage COPD. He also had acute renal failure, likely ATN. He will be admitted to [facility] following discussion with pulmonary, nephrology and palliative care teams. Allergies Allergy/AdvReac Type Severity Reaction Status Date / Time No Known Allergies Allergy Verified 12/31/18 07:15 Home Medications Home Medications Medication Instructions Recorded Confirmed Type albuterol sulfate 2.5 mg INHALATION QID PRN 12/31/18 12/31/18 History atropine 4 drp PO Q2H PRN 1 Days #1 ml 01/06/19 Rx ipratropium-albuterol 3 ml NEB QIDR 1 Days #1 ml 01/06/19 Rx morphine 2 mg IV Q4 1 Days #1 ml 01/06/19 Rx ondansetron HCl (PF) 4 mg IV Q6H PRN 1 Days #1 ml 01/06/19 Rx Past Med/Surg History Medical History AAA (abdominal aortic aneurysm) CAD (coronary artery disease) COPD (chronic obstructive pulmonary disease) Emphysema of lung Myocardial infarct, old PVD (peripheral vascular disease) Surgical History H/O angioplasty (Inactive) S/P coronary artery stent placement S/P insertion of iliac artery stent Family History Father Family history non-contributory Social History Preferred Language: Telugu Communication Ability: Effective Event Marketing Assistant Required: No Beliefs That Will Affect Care: None marital status: Current Living Situation: Other Current Living Situation Comment: admitted to inpatient hospice current occupational status: retired Other Information That Helps Us Care for You: No Feels Safe at Home: Yes Safety Concerns: Feels Safe At This Time Smoking Status: Former smoker Do You Dip or Chew Tobacco: No ; Smoking End Date: 2013 ; Second Hand Exposure: No ; Tobacco Cessation Education Requested by Patient: No Hx Alcohol Use: No Hx Substance Use: No Review of Systems Review of Systems: Unobtainable due to reduced consciousness Physical Exam Physical Exam: General: Chronically ill appearing male, moderate distress 2/2 SOB. HEENT: NC/AT; PERRLA with EOMI; [place] conjunctiva, MMM. Cardiac: RRR Lungs: Oxymask at 6-7L; tachypneic on exam, scattered wheezing/rhonchi throughout all lung ybarra. Abdomen: Severe distention; Bowel hypoactive X 4; Firm & TTP. Extremities: Warm. No edema present Skin: Incision sites in bilateral groin area with will intact, acute bleeding from right incision site now resolved. Code Status & VTE Plan VTE Prophylaxis Plan VTE Prophylaxis will be ordered: No PG Care Time/CCT Total # of Minutes Spent Total Time Spent with Patient: Total time spent is greater than 50% in coordination of care (as documented) at patient's floor/unit and/or counseling patient:
[2019-01-06] MEDS ORDERED: MoRPHine SULFATE 2 MG/ML CARP IV PRN (15:17)
[2019-01-06] MEDS: MoRPHine SULFATE 2 MG/ML CARP IV SCH ×2 (15:56→20:23)
[2019-01-06] MEDS ORDERED: ALBUT/IPRATROP 3MG/0.5MG NEB 3 ML VIAL NEB SCH (19:00)
--- NOTE | 2019-01-07 07:48 | Death Summary ---
Date of Service January 07, 2019 Pronouncement Note Date and Time of Date of : 01/06/19 Time of : 21:14 PCOD Preliminary cause of : Respiratory failure with hypoxia Contributing Factors (1) Acute on chronic respiratory failure with hypoxia: (2) Ileus: (3) Ruptured abdominal aortic aneurysm (AAA): Summary Additional details: Patient was admitted to general inpatient hospice on 01/06/19. Palliative care consulted. He received Morphine 2 mg IV q4hr scheduled with 1 mg IV for breakthrough SOB/pain. He at 21:14 last evening. He was pronounced by overnight covering resident/physician. Additional Data Confirmation of : no pulse, no respirations, no heart sounds and pupils fixed and dilated Attending/PCP notified?: Yes Attending physician: Ronak Tijerina Was code activated?: No
== END 2019-01-06 22:03 | disposition expired | DRG 189 ==
LOC: 3W 14:36